=== PATIENT | male | born 1940 | race Caucasian/White ===

== ENCOUNTER 2017-08-03 15:51 | Inpatient (IN) | payer MEDICARE, OTHER ==
[~2017-08-03] VITALS: Ht 182.9 cm; Wt 132.4 kg
[2017-08-03 18:13] VITALS: BP 131/68
[2017-08-03] MEDS: warFARin 5 MG (COUMADIN) TAB PO SCH (19:34)
[2017-08-03] MEDS: ENOXAPARIN 40 MG/0.4 ML (LOVENOX) SYR SC SCH (19:34)
[2017-08-03] MEDS: PANTOPRAZOLE 40 MG (PROTONIX) TAB PO SCH (20:44)
[2017-08-03] MEDS: ATORVASTATIN 40 MG (LIPITOR) TABLET PO SCH (20:44)
[2017-08-03] MEDS: DONEPEZIL 5 MG (ARICEPT) TAB PO SCH (20:44)
[2017-08-04 00:37] LABS: BILIRUBIN,URINE NEGATIVE (NEGATIVE); KETONES,URINE NEGATIVE (NEGATIVE); LEUKOCYTE ESTERASE ,URINE 2+ (NEGATIVE); NITRITE,URINE NEGATIVE (NEGATIVE); PH,URINE 5 (5-9); PROTEIN,URINE NEGATIVE (NEGATIVE); UROBILINOGEN,URINE NORMAL (NORMAL)
[2017-08-04 05:55] VITALS: BP 156/70
[2017-08-04 06:04] LABS: BASOPHILS # (AUTO) 0.1 10^3/uL (0.0-0.1); BASOPHILS % (AUTO) 1 % (0-10); EOSINOPHILS # (AUTO) 0.3 10^3/uL (0.0-0.3); EOSINOPHILS % (AUTO) 4 % (0-10); LYMPHOCYTES # (AUTO) 1.5 X 10^3 (1.0-4.0); LYMPHOCYTES % (AUTO) 21 % (12-44); MEAN CORPUSCULAR HEMOGLOBIN 27 PG (25-34); MEAN CORPUSCULAR HGB CONC 31 G/DL (32-36); MEAN CORPUSCULAR VOLUME 89 FL (80-99); MONOCYTES # (AUTO) 0.7 X 10^3 (0.0-1.0); MONOCYTES % (AUTO) 11 % (0-12); NEUTROPHILS # (AUTO) 4.4 X 10^3 (1.8-7.8); NEUTROPHILS % (AUTO) 63 % (42-75); PLATELET COUNT 265 10^3/uL (130-400); RED CELL DISTRIBUTION WIDTH 15.7 % (10.0-14.5); WHITE BLOOD COUNT 6.9 10^3/uL (4.3-11.0)
[2017-08-04 06:17] LABS: INR 1.2 (0.8-1.4); PROTHROMBIN TIME PATIENT 15.6 SEC (12.2-14.7)
[2017-08-04] MEDS: KCL 10 MEQ TAB (MICRO K) PO SCH (06:22)
[2017-08-04] MEDS: PANTOPRAZOLE 40 MG (PROTONIX) TAB PO SCH ×2 (06:23→21:06)
[2017-08-04] MEDS: FERROUS SULF 325 MG (IRON) TAB PO SCH ×2 (06:23→17:41)
[2017-08-04 06:24] LABS: ALANINE AMINOTRANSFERASE 15 U/L (0-55); ANION GAP 9 MMOL/L (5-14); ASPARTATE AMINO TRANSFERASE 14 U/L (5-34); BLOOD UREA NITROGEN 11 MG/DL (7-18); BUN/CREATININE RATIO 14; CALCIUM 8.8 MG/DL (8.5-10.1); CARBON DIOXIDE 23 MMOL/L (21-32); CHLORIDE 107 MMOL/L (98-107); GFR ESTIMATED > 60; GLUCOSE 109 MG/DL (70-105); POTASSIUM 3.8 MMOL/L (3.6-5.0); SODIUM 139 MMOL/L (135-145); TOTAL PROTEIN 6.2 GM/DL (6.4-8.2)
[2017-08-04 06:32] LABS: ALBUMIN 3.2 GM/DL (3.2-4.5); BILIRUBIN,TOTAL 0.8 MG/DL (0.1-1.0)
--- NOTE | 2017-08-04 07:57 | Consultation ---
History of Present Illness History of Present Illness Patient Consulted On(subhash/time) 08/04/17 07:52 Time Seen by Provider: 07:50 History of Present Illness CVA. Dementia. atrial fibrillation history. Coronary artery disease. Hypertension. Hyperlipidemia. Patient states he had a stroke and lost my mind. 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 Patient states this years 2001. Patient doesn't know what 10-2 equals. Surgeries pacemaker and heart Allergies and Home Medications Allergies Coded Allergies: aspirin (Verified Allergy, Unknown, 08/03/17) ibuprofen (Verified Allergy, Unknown, 08/03/17) lorazepam (Verified Allergy, Unknown, 08/03/17) naproxen (Verified Allergy, Unknown, 08/03/17) propofol (Verified Allergy, Unknown, 08/03/17) Past Duhveyv-Alhlal-Xzoexr Hx Patient Social History Smoking Status: Former Smoker Recent Foreign Travel: No Contact w/Someone Who Travel: No Recent Infectious Disease Expo: No Recent Hopitalizations: Yes Immunizations Up To Date Date of Pneumonia Vaccine: Nov 01, 2008 Date of Influenza Vaccine: Jul 31, 2017 Surgeries History of Surgeries: Yes (Transverse Colectomy-2014; L knee scope; Carpal tunnel surgery) Surgeries: Cardiac, Pacemaker Respiratory History of Respiratory Disorde: Yes Respiratory Disorders: Sleep Apnea Cardiovascular History of Cardiac Disorders: Yes (Pacemaker) Cardiac Disorders: Atrial Fibrillation Neurological History of Neurological Disord: Yes Gastrointestinal History of Gastrointestinal Di: Yes Gastrointestinal Disorders: Polyps, Ulcer Musculoskeletal History of Musculoskeletal Dis: Yes (DJD; Essential tremors) Musculoskeletal Disorders: Arthritis Psychosocial History of Psychiatric Problem: Yes Behavioral Health Disorders: Depression Blood Transfusions History of Blood Disorders: Yes Adverse Reaction to a Blood Tr: No Review of Systems-General Constitutional: weakness EENTM: no symptoms reported Respiratory: no symptoms reported Cardiovascular: other (history of atrial fibrillation) Gastrointestinal: no symptoms reported Genitourinary: no symptoms reported Physical Exam-General Problems Physical Exam Vital Signs Vital Sign - Last 12Hours 08/03/17 08/03/17 18:13 18:54 Temp 100.6 Pulse 65 Resp 16 B/P (MAP) 131/68 Pulse Ox 92 O2 Delivery Room Air Capillary Refill : Less Than 3 Seconds General Appearance: WD/WN, no apparent distress Eyes: Bilateral Eye Normal Inspection HEENT: normal ENT inspection Neck: full range of motion, normal inspection Respiratory: chest non-tender, normal breath sounds, no respiratory distress, no accessory muscle use Cardiovascular: regular rate, rhythm Gastrointestinal: non tender, soft Assessment/Plan Assessment/Plan Admission Diagnosis/Plan CVA. Dementia. Coronary artery Disease. Hyperlipidemia. Hypertension Clinical Quality Measures DVT/VTE Risk/Contraindication: Risk Factor Score Per Nursin RFS Level Per Nursing on Admit: 3=High MAURICE FULLER DO Aug 04, 2017 07:57
--- NOTE | 2017-08-04 08:57 | ST Dysphagia Evaluation ---
Speech Evaluation-General Medical Diagnosis CVA Onset Date: Jul 31, 2017 Therapy Diagnosis Therapy Diagnosis: Mild Oropharyngeal Dysphagia Precautions Precautions: Aspiration Precautions/Isolations: Aspiration, Fall Prevention, Standard Precautions Referral Referring Physician: Dr. Eligio Padilla Reason for Referral: Evaluation/Treatment Clinical Bedside Swallowing Evaluation Medical History Pertinent Medical History: Atrial Fib, Arthritis, HTN Hyperlipidemia Reviewed History: Yes Speech PLF/Current-Dysphagia Prior Level of Function The patient denied prior challenges with swallowing. Per chart review, the patient was recently upgraded from a mechanical soft consistency diet with nectar-thick liquids to a mechanical soft consistency diet with thin liquids ( no straw). The patient denied signs/symptoms of aspiration with his current diet consistency recommendations. Subjective The patient is a 76-year-old male admitted to [facility] following a CVA. The patient greeted the clinician appropriately and was agreeable to participation in the dysphagia evaluation. To note: The patient does demonstrate anterior loss of secretions from the right labial side at rest. Cognitive Status Patient Orientation: Person, Place, Time, Situation Oral Motor Skills Dentition: Natural Current Food Consistancy: Mechanical Soft, Thin Liquids Ability to Follow Directions: Good Oral Expression Ability: Moderate Impairment Voice Voice Phonatory-Based Quality: Normal Voice Pitch: Normal Voice Loudness: Normal Face Facial Symmetry: Asymmetrical (Minimal right facial droop present at rest.) Oral-Facial Assessment Oral-Facial Dentition: Normal Labial Seal Description: Droops Right Smile: Droops Right Puff Cheeks: Reduced Strength (Right.) Lingual Protrusion: Abnormal (Minimal right sided deviation upon protrusion.) Lingual ROM: Normal Lingual Strength: Normal Pharynx Velopharyngeal Move.: Normal Volitional Dry Swallow: Yes Voluntary Cough: Yes Can Clear Throat Volitionally: Yes Productive Cough: Yes Productive Throat Clear: Yes Dysphagia Evaluation Consistencies Presented: Regular, Thin Liquid, Pureed Oral Phase: Oral Residue (Right, inferior buccal cavity (solids).), Right Pocketing - No pharyngeal swallow deficits were noted. - Thin Liquid (teaspoon and cup sip), Puree, Solid: No signs/symptoms of aspiration were displayed with multiple boluses of thin liquid, puree, or solid consistencies. The patient's vocal quality remained clear throughout the evaluation. - Minimal to mild residual material was visualized in the right, inferior buccal cavity following the swallow. The patient was able to clear the residual material with a prompted lingual sweep. Dietary Recommendations: Mechanical Soft Liquid Recommendations: Thin Swallowing Precautions: No Straw, Pocketing, Small Bites and Sips, Sitting 90 Degrees 30 Post Intake, Right Tongue Sweep Dysphagia Evaluation Summary The patient displayed mild oropharyngeal dysphagia characterized by right labial weakness and reduced right labial range of motion. Speech Short Term Goals Short Term Goals Short Term Goals 1. The patient will complete a right lingual sweep with bolus trials of solid consistencies with more than 80% accuracy. Time Frame-STG: Five Days Speech Sewage Screen Operator Goals Care Home Goals 1. The patient will tolerate the least restrictive diet without signs/symptoms of aspiration or laryngeal penetration. Time Frame: One Week Speech-Plan Treatment Plan Speech Therapy Treatment Plan: Continue Plan of Care Continue skilled speech pathology treatment to target swallowing strategies and safety with PO. Frequency: Modified Program (IRF) (Five times per week.) Estimated Hrs Per Day: .5 hour per day Rehab Potential: Fair Safety Risks/Education Teaching Recipient: Patient, Family Teaching Methods: Discussion Response to Teaching: Verbalize Understanding Education Topics Provided: Results, Recommendations, Plan of Care Time Speech Therapy Time In: 08:00 Speech Therapy Time Out: 08:15 Total Billed Time: 15 Billed Treatment Time Lisseth PEPE BUSTOS Aug 04, 2017 08:57
--- NOTE | 2017-08-04 08:59 | ST Cognitive Linguistic Eval ---
Speech Evaluation-General Medical Diagnosis CVA Onset Date: Jul 31, 2017 Therapy Diagnosis Therapy Diagnosis: Moderate Expressive Aphasia Precautions Precautions: Aspiration Precautions/Isolations: Aspiration, Fall Prevention, Standard Precautions Referral Referring Physician: Dr. Eligio Padilla Reason for Referral: Evaluation/Treatment Cognitive, Speech, Language Evaluation Medical History Pertinent Medical History: Atrial Fib, Arthritis, HTN Reviewed History: Yes Speech PLF-Current Status Prior Level of Function The patient denied prior challenges with speech, language, or cognition. Per patient's daughter, the patient did experience an episode of [place]' Palsy several years prior which may have resulted in consistent right sided facial weakness. Subjective The patient is a 76-year-old male admitted to [facility] following a CVA. The patient greeted the clinician appropriately and was agreeable to participation in the speech and language evaluation. Language Eval: Auditory Comprehends Simple Yes/No Ques: Functional Indent/Objects Multiple Quiles: Functional Ident/Pics in Multiple Quiles: Moderate Follows 1-Step Commands: Functional (With additional time for processing; response delay.) Follows Complex Directions: Moderate Follows General Conversations: Mild Language Eval: Verbal Language Completes Spontaneous Greeting: Functional Produces Auto, Serial Info: Functional Imitates Simple Words/Phrases: Moderate (The patient was able to repeat single words, however, was unable to repeat short phrases.) Word Finding: Moderate Requests Basic Needs: Functional States Basic Personal Info: Functional Expresses Complex Ideas: Moderate Language Evaluation: Reading Comprehends Single Nouns: Functional Cognitive Patient Orientation The patient was oriented to the day of the week, only. The patient required moderate verbal prompting from the clinician to identify the accurate month and year. Objective Cognitive Domain Attention: WNL Memory: Moderate Problem Solving: Moderate Executive Functions: Moderate Visuospatial Skills: Moderate (The patient displayed mild to moderate right visual neglect.) Clock Drawing Severity Rating: Moderate Objective Oral Motor/Speech Production The patient displayed mild right labial weakness at rest. The patient remains 100% intelligible in known and unknown contexts. Impression The patient displays moderate expressive aphasia characterized by reduced word- finding, decreased orientation, reduced confrontational naming, and decreased repetition. Communication/Social Cognition Comprehension: 3 Expression: 3 Social Interaction: 5 Problem Solvin Memory: 2 Speech Patient Assess Expression of Ideas/Wants: Frequently (2) Understanding [place] Content: Usually Understands (3) Brief Interview-Mental Status: Yes Repetition of Three Words: Three (3) Temporal Orientation: Year: Missed by more than 5 yrs (0) Temporal Orientation: Month: Accurate within 5 days(2) Temporal Orientation: Day: Correct (1) Recall : Wear to say "Sock": No, could not recall (0) Recall : Color: No, could not recall (0) Recall : Bed: Yes, no cue required (2) Speech Short Term Goals Short Term Goals Short Term Goals 1. The patient will complete structured word-finding exercises with 90% accuracy and mild clinician cueing. 2. The patient will follow simple, two step commands with 80% accuracy and mild clinician cueing. 3. The patient will display 80% accuracy with confrontational naming of pictures with mild clinician cueing. Time Frame-ST Days Speech Rag Collector Goals Rag Collector Goals 1. The patient will improve cognitive linguistic skills for increased function and safety with ADL's. Time Frame: Two Weeks Comprehension: 4 Expression: 4 Social Interaction: 5 Problem Solvin Memory: 3 Speech-Plan Treatment Plan Speech Therapy Treatment Plan: Continue Plan of Care Continue skilled speech pathology to target functional expressive communication. Frequency: Modified Program (IRF) (Five times per week.) Estimated Hrs Per Day: .5 hour per day Rehab Potential: Fair Safety Risks/Education Teaching Recipient: Patient Teaching Methods: Discussion Response to Teaching: Verbalize Understanding Education Topics Provided: Results, Recommendations, Plan of Care Time Speech Therapy Time In: 08:15 Speech Therapy Time Out: 08:30 Total Billed Time: 15 Billed Treatment Time 1DANIELLEGEORGEPEPE MAC Aug 04, 2017 08:59
[2017-08-04] MEDS: amLODIPine 5 MG (NORVASC) TAB PO SCH (09:31)
[2017-08-04] MEDS: FUROSEMIDE 40 MG (LASIX) TAB PO SCH (09:31)
--- NOTE | 2017-08-04 12:01 | Physical Therapy Evaluation ---
PT Evaluation-General Medical Diagnosis Admission Date Aug 03, 2017 at 17:53 Medical Diagnosis: CVA Onset Date: Jul 31, 2017 Therapy Diagnosis Therapy Diagnosis: weakness, mobility impairments Height/Weight Height (Feet): 6 Height (Inches): 0.00 Weight (Pounds): 295 Weight (Ounces): 12.8 Precautions Precautions/Isolations: Fall Prevention, Standard Precautions Referral Physician: Eligio Padilla MD Reason for Referral: Evaluation/Treatment Medical History Pertinent Medical History: Atrial Fib, Arthritis, Dementia, HTN, Smoking Additional Medical History sleep apnea, polyps, ulcer, DJD, essential tremors, depression, CAD, hyperlipidemia. Surgeries: transverse colectomy 2014, L knee scope, carpal tunnel, cardiac, pacemaker Current History Pt was admitted to hospital 07/31 following AMS and fall in the bathtub, had CVA. Reviewed History: Yes Social History Home: Single Level Current Living Status: Other Family Entry Into Home: Stairs With Railing PT Steps Into Home: 2 Pt has been living with family prior to admission. Prior/Core FIM Prior Level of Function Functional [place] Measure 0=Not Assessed/NA 4=Minimal Assistance 1=Total Assistance 5=Supervision or Setup 2=Maximal Assistance 6=Modified [place] 3=Moderate Assistance 7=Complete [place] Bed Mobility: 7 Transfers (B,C,W/C) (FIM): 6 Gait: 6 Locomotion: 6 Wheelchair Mobility: 6 Pt was ambulating in household, shorter distances with no assistive devices. Pt uses scooter or wheelchairs (provided in stores, does not own wheelchair) when out in the community PT Evaluation-Current Subjective Pt was sitting in chair, chair alarm on, prior to treatment, daughter in room. Daughter provided subjective information regarding prior level of function and past medical history. Pt reports no pain. Pt was sitting in chair, chair alarm on, phone, tray, nurse call in reach, all needs met post tx. Pain Numeric Pain Scale: 0-No Pain Location: No Pain Reported Pt/Family Goals To return home with prior level of function Objective Patient Orientation: Person, Place, Situation ROM/Strength ROM Lower Extremities WFL Strength Upper Extremities Joint Cutter Machine 5/5 bilaterally, no difference noted from right to left. Strenght Lower Extremities Left: 5/5 with hip flexion, knee flexion, knee extension, ankle dorsiflexion. Right: hip flexion (5/5) , knee flexion (5/5), knee extension (5/5), ankle dorsiflexion (4/5). Integumentary/Posture Integumentary refer to nursing note Bowel Incontinence: Yes Bladder Incontinence: No Neuromuscular (Tone, Coordination, Reflexes) NT Sensory Vision: Neblect Right Hearing: Functional Hand Dominance: Right Sensation Right Upper Extremit: Intact Sensation Left Upper Extremity: Intact Sensation Right Lower Extremit: Intact Sensation Left Lower Extremity: Intact Transfers Functional [place] Measure 0=Not Assessed/NA 4=Minimal Assistance 1=Total Assistance 5=Supervision or Setup 2=Maximal Assistance 6=Modified [place] 3=Moderate Assistance 7=Complete IndependenceIRFPAI Quality Coding Scale 6 Independent with activity with or without an assistive device 5 Patient requires set up or clean up by helper. Patient completes activity by themselves 4 Supervision or touching assist (CGA). [place] provide cues , steadying assist 3 The helper provides less than half the effort to complete the activity 2 The helper provides more than half the effort to complete the activity 1 Dependent. The helper does all the effort to complete an activity 7 Patient refused to complete or attempt activity 9 The patient did not perform the activity before the current illness or injury 88 Not attempted due to Medical conditions or safety concerns Transfers (B, C, W/C) (FIM): 5 Scootin Rollin Roll Left to Right (QC): 5 Supine to/from Sit: 5 Sit to/from Stand: 5 Sit to Lying (QC): 5 Lying to Sitting/Side of Bed(Q: 5 Sit to Stand (QC): 5 Chair/Wyj-pk-Fomhf Xfer(QC): 5 Pt completes all bed mobility and transfers with supervision. Pt requires verbal cues for hand placement and safety with sit<>stand. Gait Does the Patient Walk?: Yes Mode of Locomotion: Walk Anticipated Mode of Locomotion: Walk Gait (FIM): 2 Distance (FIM): 8=141-36 ft Walk 10 feet (QC): 4 Walk 50 ft with 2 Turns(QC): 4 Walk 150 ft (QC): 88 Walking 10ft/uneven surface-QC: 88 Distance: 100'x6 Gait Level of Assist: 4 Gait Persons Needed: 1 Gait Assistive Device: FWW Comments/Gait Description Pt ambulates 100' with FWW and CGA for safety. Pt has hunched posture. Pt has tendency to push walker out too far in front of him, and keeps walker to the left side of his body with ambulation. Requires verbal cues for safety. Wheelchair Training Does the Pt Use a Wheelchair?: No Stairs Stairs (FIM): 2 #of Steps: 4 Level of Assist: 4 1 Step (curb) (QC): 4 4 Steps (QC): 4 12 Steps (QC): 88 Pt completes 4 steps using 2 handrails and close CGA for safety. Pt requires verbal cues for sequencing and safety. Pt has some difficulty picking right foot up completely off of step with descending stairs. Balance Sitting Static: Normal Sitting Dynamic: Normal Standing Static: Fair Standing Dynamic: Fair Picking up an Object (QC): 88 Treatment Pt completes seated exercises (hip flexion, DF, knee flexion, knee extension) x10 with theraband for resistance. Pt also completes gait training and standing exercises in parallel bars (side steps, mini squats)x8 to increase functional strength and mobility. Assessment/Needs Pt has decreased strength, balance, activity tolerance, transfers, and gait. Pt exhibits right neglect. Pt exhibits decreased safety awareness, requires verbal cues for positioning, directions, and safety. Pt is able to follow directions and responds appropriately, doesn't always track movement with eyes Rehab Potential: Fair PT Short Term Goals Short Term Goals Time Frame: Aug 11, 2017 Transfers (B,C,W/C) (FIM): 6 Gait (FIM): 4 Gait Distance Comment: 200' Gait Level of Assist: 4 Gait Assistive Device: FWW PT Speaker Wirer Goals Speaker Wirer Goals PT Speaker Wirer Goals Time Frame: Aug 25, 2017 Transfers (B,C,W/C) (FIM): 7 Sit to Lying (QC): 6 Lying-Sitting on Side/Bed(QC): 6 Sit to Stand (QC): 6 Rollin Roll Left to Right (QC): 6 Chair/Law-uh-Baieu Xfer(QC): 6 Car Transfer (QC): 4 Gait (FIM): 6 Distance: 250' Walk 10 feet (QC): 6 Walk 10ft-Uneven Surface(QC): 6 Walk 50ft with 2 Turns (QC): 6 Walk 150 ft (QC): 6 Gait Level of Assist: 6 Gait Assistive Device: FWW Stairs (FIM): 5 # of Steps: 12 1 Step (curb) (QC): 4 4 Steps (QC): 4 12 Steps (QC): 4 Stairs Level Of Assist: 5 Picking up an Object (QC): 4 PT Plan Problem List Problem List: Activity Tolerance, Functional Strength, Safety, Balance, Gait, Transfer, Bed Mobility, ROM Treatment/Plan Treatment Plan: Continue Plan of Care Treatment Plan: Bed Mobility, Education, Functional Activity Dave, Functional Strength, Group Therapy, Gait, Safety, Therapeutic Exercise, Transfers Treatment Duration: Aug 25, 2017 Frequency: At least 5 of 7 days/Wk (IRF) Estimated Hrs Per Day: 1.5 hours per day Patient and/or Family Agrees t: Yes Safety Risks/Education Patient Education: Gait Training, Transfer Techniques, Steps, Reviewed Precautions, Correct Positioning, Safety Issues Teaching Recipient: Patient Teaching Methods: Demonstration, Discussion Response to Teaching: Verbalize Understanding, Reinforcement Needed Discharge Recommendations Plan Patient will perform bed mobility and transfer training, balance and endurance training, functional strengthening, stair training, gait training, and education , to improve functional mobility and independence at home. Therapy D/C Recommendations: Home w/ Family Support, Usp (TCU/NH) Equpiment Recommendations-D/C: Front Wheeled Walker Time/GCodes Time In: 1100 Time Out: 1201 Total Billed Treatment Time: 61 Total Billed Treatment 1 visit 16 EVM 30 GT 15 ANA BOWMAN PT Aug 04, 2017 12:01
--- NOTE | 2017-08-04 12:41 | Occupational Therapy Eval ---
OT Evaluation-General/PLF Medical Diagnosis Admission Date Aug 03, 2017 at 17:53 Medical Diagnosis: CVA Onset Date: Jul 31, 2017 Therapy Diagnosis Therapy Diagnosis: impaired self care skills Height/Weight Height (Feet): 6 Height (Inches): 0.00 Weight (Pounds): 295 Weight (Ounces): 12.8 Precautions Precautions/Isolations: Fall Prevention, Standard Precautions Safety Interventions: Bed Exit Alarm, Reorient-PRN Referral Physician: Eligio Padilla MD Medical History Pertinent Medical History: Atrial Fib, Arthritis, Dementia, HTN, Smoking Additional Medical History pacemaker, heart stents x2, GI bleed, hyperlipidemia, colectomy, left carpal tunnel release Reviewed History: Yes Social History Home: Single Level Current Living Status: Other Family Entry Into Home: Stairs With Railing Steps Into Home: 2 Pt lives alone, but has been staying with daughter after recent hospitalization. ADL-Prior Level of Function ADL PLOF Comments Pt has difficulty providing accurate information regarding PLOF. Daughter present and provides history. Daughter states pt has been able to dress and toilet himself, but has been receiving assistance with bathing. Has been recommended to use FWW, but does not have one yet. Daughter states pt is a "furniture walker." Minimal activity level. DME/Equipment: Bath Chair, Grab Bars, Tall Toilet, Tub/Shower Drive Self: Yes OT Current Status Subjective Pt in bed, agrees to therapy. Pt has no c/o pain. Mental Status/Objective Patient Orientation: Person Pt able to state name, , and current city as [place], but not oriented to time. Current Glasses/Contacts: No Hearing Aids: No Dentures/Partials: No Hand Dominance: Right Upper Extremity ROM Grossly WFL Upper Extremity Coordination Fair. Pt has tremors in bilateral UE Upper Extremity Sensation Intact per pt report. Upper Extremity Strength Grossly functional ADL-Treatment ADL-Current Pt supine to sit with supervision. Sit to stand with supervision. Gait to restroom with FWW, cues for safety. Transfer to toilet with CGA using grab bars. Pt would like to shower this morning, doffed clothing while seated on toilet. Pt transferred to walk in shower with CGA. Seated bathing completed with increased time. Upper body bathing completed with SBA. Pt able to wash lower body with SBA. Stood with CGA for balance while washing buttocks and edis area. Don pullover shirt with set up. Pt donned underwear and pants with minimal assistance. Pt was able to doff socks, but required assistance to don socks. Daughter states pt does not usually wear socks, but wears loose shoes that he can slip on. Grooming tasks completed seated at sink. Pt shaved, brushed teeth, and combed hair with SBA. Transfer to chair with CGA and cues for walker safety. Pt has decreased safety awareness and requires occasional cues for safety during functional tasks. Pt sitting in chair with needs met and daughter present , chair alarm in place. Functional [place] Measure 0=Not Assessed/NA 4=Minimal Assistance 1=Total Assistance 5=Supervision or Setup 2=Maximal Assistance 6=Modified [place] 3=Moderate Assistance 7=Complete IndependenceIRFPAI Quality Coding Scale 6 Independent with activity with or without an assistive device 5 Patient requires set up or clean up by helper. Patient completes activity by themselves 4 Supervision or touching assist (CGA). [place] provide cues , steadying assist 3 The helper provides less than half the effort to complete the activity 2 The helper provides more than half the effort to complete the activity 1 Dependent. The helper does all the effort to complete an activity 7 Patient refused to complete or attempt activity 9 The patient did not perform the activity before the current illness or injury 88 Not attempted due to Medical conditions or safety concerns Grooming (FIM): 5 Oral Hygiene (QC): 4 Bathing (FIM): 4 Shower/Bathe Self (QC): 4 Upper Body Dressing (FIM): 5 Upper Body Dressing (QC): 5 Lower Body Dressing (FIM): 4 Lower Body Dressing (QC): 3 On/Off Footwear (QC): 3 Toilet/Commode Transfer (FIM): 4 Toilet Transfer (QC): 4 (CGA) Shower Transfer (FIM): 4 Education OT Patient Education: Rehab process Teaching Recipient: Patient Teaching Methods: Discussion Response to Teaching: Verbalize Understanding, Reinforcement Needed OT Short Term Goals Short Term Goals Time Frame: Aug 11, 2017 Lower Body Dressing(FIM): 5 Toileting(FIM): 5 Toilet/Commode Transfer(FIM): 5 1=Demonstrate adherence to instructed precautions during ADL tasks. 2=Patient will verbalize/demonstrate understanding of assistive devices/ modifications for ADL. 3=Patient will improve strength/tolerance for activity to enable patient to perform ADL's. OT Orchestra Conductor Goals Orchestra Conductor Goals Time Frame: Aug 25, 2017 Eating (FIM): 6 Eating (QC): 6 Groomin Oral Hygiene (QC): 6 Bathing(FIM): 5 Shower/Bathe Self (QC): 5 Upper Body Dressing(FIM): 6 Upper Body Dressing (QC): 6 Lower Body Dressing(FIM): 6 Lower Body Dressing (QC): 6 On/Off Footwear (QC): 6 Toileting(FIM): 6 Toileting Hygiene (QC): 6 Toilet/Commode Transfer(FIM): 6 Toilet/Commode Transfer (QC): 6 Shower Transfer(FIM): 5 Memory(FIM): 3 Additional Goals: 2-Verbalize Understanding, 3-ImproveStrength/Dave 1=Demonstrate adherence to instructed precautions during ADL tasks. 2=Patient will verbalize/demonstrate understanding of assistive devices/ modifications for ADL. 3=Patient will improve strength/tolerance for activity to enable patient to perform ADL's. Goals established to promote increased independence and allow safe discharge plan. OT Education/Plan Problem List/Assessment Assessment: Decreased Activ Tolerance, Decreased Safety Aware, Dependent Transfers, Impaired Self-Care Skills Pt demonstrates decreased ADL functioning, mobility, activity tolerance, and safety awareness. Pt to benefit from skilled OT intervention for ADL training, transfers, strengthening, and home safety education to maximize level of function and allow safe discharge plan. Discharge Recommendations Plan/Recommendations: Continue POC Treatment Plan/Plan of Care Treatment,Training & Education: Yes Patient would benefit from OT for education, treatment and training to promote independence in ADL's, mobility, safety and/or upper extremity function for ADL' s. Plan of Care: ADL Retraining, Functional Mobility, Group Exercise/Act as Ind, UE Funct Exercise/Act, UE Neuromus Re-Ed/Coord Treatment Duration: Aug 25, 2017 Frequency: At least 5 of 7 days/Wk (IRF) Estimated Hrs Per Day: 1.5 hours per day Agreement: Yes Rehab Potential: Good Time/GCodes Start Time: 09:15 Stop Time: 10:40 Billed Treatment Time 1 visit, EVL(15minutes), ADLx5(70minutes) HARDY DYKES OT Aug 04, 2017 12:41
[2017-08-04] MEDS ORDERED: AMLO5TAB2 PO (13:13)
[2017-08-04] MEDS ORDERED: POTA20TA15 PO (13:13)
[2017-08-04] MEDS ORDERED: WARF-48 PO (13:13)
[2017-08-04] MEDS ORDERED: PANT40TA3 PO (13:13)
[2017-08-04] MEDS ORDERED: TRAM50TA2 PO (13:13)
[2017-08-04] MEDS ORDERED: FURO40TA4 PO (13:13)
[2017-08-04] MEDS ORDERED: FERR-74 PO (13:13)
[2017-08-04] MEDS ORDERED: PRAV20TA3 PO (13:13)
[2017-08-04] MEDS ORDERED: CELE-63 PO (13:13)
--- NOTE | 2017-08-04 13:44 | HISTORY AND PHYSICAL ---
DATE OF SERVICE: 08/03/2017 CHIEF COMPLAINT: Difficulty with speech. HISTORY OF PRESENT ILLNESS: The patient is a 76-year-old male who presented to [facility] ED with family with complaints of altered mental status. Daughter states the patient was recently treated for a GI bleed secondary to an ulcer and was doing well until he was found that morning. He was unable to respond to questions and could not speak. The patient started noted incontinence of bowel and bladder. The patient had a CT of the head which was unremarkable. They could not do an MRI of the brain due to the pacemaker status. 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 The patient was followed by PT, OT, speech. The patient was placed on mechanical soft diet with nectar thickened liquids. He has just been advanced to thin liquids with no straw today by speech therapy at outside facility. He is now referred to inpatient rehabilitation here at [facility] for ongoing stroke rehabilitation. He presents to unit with his 2 daughters one of whom lives with him in [place], [place]. Currently he requires assistance for his ADLs and mobility skills. His Coumadin was held while he was undergoing workup,but it has now been resumed and Lovenox subcutaneous has been ordered until INR is more than 2. The patient was felt to have obstructive sleep apnea while being evaluated at [facility] and was recommended to have a sleep study on an outpatient basis. He does not have a CPAP machine. He is currently SBA for transfers and bed mobility He is Min assist for gait with FWW He is min assist for Lower body dressing and SBA for upper body dressing,He is min assist for bathing and oral hygiene,Setup for grooming and eating. PAST MEDICAL HISTORY: Atrial fibrillation, arthritis, colon polyps, DJD, gastric ulcer, hypertension, hyperlipidemia, morbid obesity with BMI of 40, pacemaker. PAST SURGICAL HISTORY: Knee arthroscopy, pacemaker placement, colon surgery in 2015, EGD, carotid stent, colectomy. ALLERGIES: ASPIRIN, IBUPROFEN, LORAZEPAM, NAPROXEN, PROPOFOL. FAMILY HISTORY: Noncontributory. 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 The family reports that he was independent with ambulation and ADLs prior to this. He lives in a one story home, a few steps to enter. He has a shower chair with back, tall toilet, grab bars in the shower. REVIEW OF SYSTEMS: A 10-point review of systems is significant for gait imbalance, difficulty with speech and swallow. MEDICATIONS: Norvasc 5 mg p.o. q. day, furosemide 40 mg p.o. q. day, ferrous sulfate 325 mg p.o. b.i.d., KCl 10 mEq p.o. q. day, Aricept 5 mg p.o. q. bedtime, Protonix 40 mg p.o. b.i.d., Lipitor 40 mg p.o. q. bedtime, Lovenox 20 mg subcu q. day until INR is more than 2, Coumadin 5 mg p.o. q. day, tramadol 50 mg p.o. t.i.d. p.r.n. moderate pain. PHYSICAL EXAMINATION: GENERAL: Significant for an obese male appearing his stated age, appearing alert, difficult to tell orientation due to his speech difficulty. He states it is December 02 and then tries to correct to October for the month. He has just been started on Aricept. VITAL SIGNS: Temperature 100.6, pulse 65, respirations 16, blood pressure 131/68, O2 92% on room air. HEENT: Vision and hearing appear grossly intact. No oral lesions is noted. He has dysphagia as well as aphasia. NECK: Supple without mass. HEART: Regular rhythm. LUNGS: Clear. ABDOMEN: Soft, nontender. Bowel sounds present, obese. EXTREMITIES: No leg edema, no calf tenderness. MUSCULOSKELETAL: He is right-handed and has functional active range of motion in all 4 extremities. NEUROLOGIC: He has dysphagia, aphasia and gait imbalance. He has functional strength both upper limbs as well as mild tremors in hands. It is difficult to determine cognition due to communication deficit.He has mild rt sided neglect.Sensation grossly intact to touch. He has good apprentice embalmer strength, He has 5/5 strength BLES except for RT ankle dorsiflexor 4/ 5 : Reported to have some incontinence. Will check UA. IMPRESSION: 1. Left middle cerebral artery distribution stroke with resulting gait imbalance, aphasia and dysphagia. 2. Morbid obesity. 3. Atrial fibrillation controlled with medication. 4. Status post pacemaker. 5. Low grade fever. Will check UA. 6. Chronic anticoagulation. Check INR and routine admission labs in a.m. 7. Hypertension, controlled with medication. 8. Anemia with recent history of gastric ulcer on replacement. 9. Gastrointestinal prophylaxis on Protonix. PLAN: The patient will have a comprehensive program of inpatient stroke rehabilitation with goal of maximizing level of functional independence prior to discharge home with his daughter. The patient will have PT and OT 90 minutes per day each discipline, 5 days a week for 2 weeks when not being seen by speech therapy for gait, strengthening, conditioning, balance, ADLs, any patient or family caregiver training necessary, any adaptive equipment training necessary. Speech therapy to do cognitive speech and swallow assessment, treat as indicated 3-5 times a week for 30-45 minutes per day with the patient being seen less by PT and OT during those days to make 3 hours total per day. Rehabilitation nurse may assist with bowel, bladder, skin care, medication administration, pain management. resident services supervisor to assist with discharge planning, community reentry. Will check UA. Therapy with cardiac and fall precautions. Consult Dr. Cherry to assist with medical management of this out of town patient. The patient is usually followed by a nurse practitioner in [place], [place]. Check nocturnal oximetry to see if he desaturates during the night, may benefit from pulmonary consult while here. DIET: Mechanical soft with thin liquids. No straw. Heart healthy. CODE STATUS: Full code. Job ID: [id number] DocumentID: [id number] Dictated Date: 08/03/2017 20:05:45 Grounds Person Date: 08/04/2017 11:07:27 Dictated By: NICOLE SANTANA MD MTDD
--- NOTE | 2017-08-04 14:35 | Physical Therapy Daily Note ---
PT Daily Note-Current Subjective Pt was sitting in chair, chair alarm on prior to tx and agreeable to PT. Pt was sitting in chair, tray, phone, nurse call in reach, all needs met post tx, chair alarm on. Pain Numeric Pain Scale: 0-No Pain Location: No Pain Reported Mental Status Patient Orientation: Person, Place, Situation Transfers Functional [place] Measure 0=Not Assessed/NA 4=Minimal Assistance 1=Total Assistance 5=Supervision or Setup 2=Maximal Assistance 6=Modified [place] 3=Moderate Assistance 7=Complete IndependenceIRFPAI Quality Coding Scale 6 Independent with activity with or without an assistive device 5 Patient requires set up or clean up by helper. Patient completes activity by themselves 4 Supervision or touching assist (CGA). [place] provide cues , steadying assist 3 The helper provides less than half the effort to complete the activity 2 The helper provides more than half the effort to complete the activity 1 Dependent. The helper does all the effort to complete an activity 7 Patient refused to complete or attempt activity 9 The patient did not perform the activity before the current illness or injury 88 Not attempted due to Medical conditions or safety concerns Transfers (B, C, W/C) (FIM): 5 Scootin Supine to/from Sit: 5 Sit to/from Stand: 5 Pt completes all bed mobility and transfers with supervision for safety. Pt requires verbal cues for hand placement and safety with sit<>stand. Gait Training Does the Patient Walk?: Yes Gait (FIM): 2 Distance (FIM): 0=768-79 ft Distance: 100'x2 Gait Level of Assist: 4 Gait Persons Needed: 1 Gait Assistive Device: FWW Pt ambulates 100'x2 with CGA for safety. Pt tends to push walker too far in front of him and to the left, is verbally cued to keep walker with him and in front of him. Exercises Supine Ex: Bridging, Ankle pumps, Quad Set, Heel Slides, Short Arc Quads Supine Reps: 10 Seated Therapy Exercises: Long arc quads, Hip flexion Seated Reps: 15 Treatments Pt completes gait training to increase functional mobility and seated/supine exercises to increase functional strengthening and endurance. Assessment Current Status: Good Progress Pt becomes short of breath with exercises, pt has low activity tolerance and endurance. Pt is unable to get to full knee extension in supine, lacking approximately 20 degrees. Pt has decreased safety awareness. PT Short Term Goals Short Term Goals Time Frame: Aug 11, 2017 Gait (FIM): 4 Gait Distance Comment: 200' Gait Level of Assist: 4 Gait Assistive Device: FWW PT Half-Way Goals Half-Way Goals PT Half-Way Goals Time Frame: Aug 25, 2017 Transfers (B,C,W/C) (FIM): 7 Sit to Lying (QC): 6 Lying-Sitting on Side/Bed(QC): 6 Sit to Stand (QC): 6 Rollin Roll Left to Right (QC): 6 Chair/Aaw-pn-Krmam Xfer(QC): 6 Car Transfer (QC): 4 Gait (FIM): 6 Distance: 250' Walk 10 feet (QC): 6 Walk 10ft-Uneven Surface(QC): 6 Walk 50ft with 2 Turns (QC): 6 Walk 150 ft (QC): 6 Gait Level of Assist: 6 Gait Assistive Device: FWW Stairs (FIM): 5 # of Steps: 12 1 Step (curb) (QC): 4 4 Steps (QC): 4 12 Steps (QC): 4 Stairs Level Of Assist: 5 Picking up an Object (QC): 4 PT Plan Problem List Problem List: Activity Tolerance, Functional Strength, Safety, Balance, Gait, Transfer, Bed Mobility, ROM Treatment/Plan Treatment Plan: Continue Plan of Care Treatment Plan: Bed Mobility, Education, Functional Activity Dave, Functional Strength, Group Therapy, Gait, Safety, Therapeutic Exercise, Transfers Treatment Duration: Aug 25, 2017 Frequency: At least 5 of 7 days/Wk (IRF) Estimated Hrs Per Day: 1.5 hours per day Patient and/or Family Agrees t: Yes Safety Risks/Education Patient Education: Gait Training, Transfer Techniques, Reviewed Precautions, Correct Positioning, Safety Issues Teaching Recipient: Patient Teaching Methods: Demonstration, Discussion Response to Teaching: Verbalize Understanding, Reinforcement Needed Time/GCodes Time In: 1401 Time Out: 1430 Total Billed Treatment Time: 29 Total Billed Treatment 1 visit GT 15 EX 14 ANA FUNEZ PT Aug 04, 2017 14:35
--- NOTE | 2017-08-04 14:47 | PM&R Post Admission Assessment ---
Post Admission Physician Asses The preadmission screen agrees with the post admission assessment that the patient is a good candidate for inpatient rehabilitation. The patient will have a comprehensive program of inpatient rehabilitation with a goal of maximizing level of functional independence prior to discharge home with daughter and HHC. The patient will have PT/OT ninety minutes per day when not being seen by ST, each discipline, five days a week for gait, strengthening, conditioning, balance, ADLs, any patient/family/caregiver training as necessary. Speech therapy to do cognitive sppech and swallow assessment and treat 5 days a week for 30-45 minutes per day for 2 weeks. Rehabilitation nursing to assist with bowel, bladder, skin, wound care, medication administration, pain management. Import Export Manager to assist with discharge planning, community reentry. Coumadin and Lovenox until INR therapeutic for dvt prophylaxis,Monitor for nocturnal desaturation due to probable CHONG. He appears to be well motivated to participate in three hours of therapy a day. He should be able to tolerate three hours of therapy a day from a medical standpoint. He should benefit from the three hours of therapy a day. He has a reasonable discharge plan, reasonable discharge rehabilitation goals and a supportive family. He has various comorbidities that need to be closely monitored with medications and treatments adjusted on a daily basis as needed. These include: Chronic A FIB Morbid obesity s/p pacemaker Probable CHONG HTN Anemia with recent hx of gastric ulcer Barriers to discharge for this patient who had been independent prior to this are for him to be modified independent to supervision for ADLs and mobility skills prior to discharge home with daughter and HHC, so as to lessen the burden of the caregivers. Risks for this patient include: 1. Fall 2. Fracture 3. DVT 4. Pulmonary embolism 5. Wound infection 6. Skin breakdown 7. Contractures 8. Poorly controlled pain 9. Urinary retention 10. UTI 11. Respiratory infection 12. Aspiration 13. Poorly controlled HTN 14. Recurrent stroke Estimated Length of Stay: 14days Prognosis: Rehab prognosis appears good for goal of discharge home with daughter and HHC modified independent to supervision for ADLs and mobility skills. NICOLE SANTANA MD Aug 04, 2017 14:47
--- NOTE | 2017-08-04 14:55 | PM & R (SOAP) Progress Note ---
Subjective Time Seen by Provider: 09:59 Subjective/Events-last exam Patient was seen in his room this AM Adjusting well to unit Appreciate labs and DR chandra note INR subtherapeutic Lovenox continued Patient now afebrile and U/A negative CBC and Chem Lab noted.Patient min assist for ambulation with WW. Review of Systems HEENT: Other (difficulty with speech and swallow) Objective Exam Last Set of Vital Signs Vital Signs Date Time Temp Pulse Resp B/P (MAP) Pulse Ox O2 Delivery O2 Flow Rate FiO2 08/04/17 05:55 98.5 71 20 156/70 95 Room Air Capillary Refill : Less Than 3 Seconds I&O Intake and Output 08/05/17 00:00 Intake Total 200 ml Balance 200 ml Intake Oral 200 ml # Voids 4 General: Alert, Cooperative, No Acute Distress HEENT: Atraumatic, PERRLA, EOMI, Mucous Memb Moist/[place], Other (aphasia and dysphagia) Neck: Supple, No JVD Lungs: Clear to Auscultation Heart: Regular Rate Abdomen: Normal Bowel Sounds, Soft, No Tenderness Extremities: No Edema Neuro: Other (as per above as well as mild rt sided neglect and mildly weak rt ankle dorsiflexors) Results Lab Laboratory Tests 08/04/17 00:15: Urine Color YELLOW, Urine Clarity CLEAR, Urine pH 5, Urine Specific [place] 1.025H, Urine Protein NEGATIVE, Urine Glucose (UA) NEGATIVE, Urine Ketones NEGATIVE, Urine Nitrite NEGATIVE, Urine Bilirubin NEGATIVE, Urine Urobilinogen NORMAL, Urine Leukocyte Esterase 2+H, Urine RBC (Auto) NEGATIVE, Urine RBC NONE , Urine WBC 2-5, Urine Squamous Epithelial Cells 2-5, Urine Crystals NONE, Urine Bacteria TRACE, Urine Casts NONE, Urine Mucus SMALLH, Urine Culture Indicated NO 08/04/17 06:00: White Blood Count 6.9, Red Blood Count 3.60L, Hemoglobin 9.8L, Hematocrit 32L, Mean Corpuscular Volume 89, Mean Corpuscular Hemoglobin 27, Mean Corpuscular Hemoglobin Concent 31L, Red Cell Distribution Width 15.7H, Platelet Count 265, Mean Platelet Volume 9.0, Neutrophils (%) (Auto) 63, Lymphocytes (%) (Auto) 21, Monocytes (%) (Auto) 11, Eosinophils (%) (Auto) 4, Basophils (%) (Auto) 1, Neutrophils # (Auto) 4.4, Lymphocytes # (Auto) 1.5, Monocytes # (Auto) 0.7, Eosinophils # (Auto) 0.3, Basophils # (Auto) 0.1, Prothrombin Time 15.6H, INR Comment 1.2, Sodium Level 139, Potassium Level 3.8, Chloride Level 107, Carbon Dioxide Level 23, Anion Gap 9, Blood Urea Nitrogen 11, Creatinine 0.80, Estimat Glomerular Filtration Rate > 60, BUN/Creatinine Ratio 14, Glucose Level 109H, Calcium Level 8.8, Total Bilirubin 0.8, Aspartate Amino Transf (AST/SGOT) 14, Alanine Aminotransferase (ALT/SGPT) 15, Alkaline Phosphatase 70, Total Protein 6.2L, Albumin 3.2 Assessment/Plan Assessment Left MCA distribution CVA with Gait imbalance and dysphagia and aphasia Morbid obesity A Fib Controlled with meds Chronic anticoagulation Gastric ulcer s/p treatment on PPI Mild anemia due to above S/P pacemaker Probable CHONG Plan Continue PT/OT/ST Team Conference hedl today-See report for full functional update and POC Monitor INR and adjust Coumadin as needed Continue with Lovenox SUB CUT until INR>2 NICOLE SANTANA MD Aug 04, 2017 14:55
[2017-08-04 15:30] VITALS: BP_SYST 117; BP_SYST 151; BP_DIAS 67; BP_DIAS 73
[2017-08-04] MEDS: warFARin 5 MG (COUMADIN) TAB PO SCH (17:41)
[2017-08-04] MEDS: ENOXAPARIN 40 MG/0.4 ML (LOVENOX) SYR SC SCH (17:42)
[2017-08-04] MEDS: DONEPEZIL 5 MG (ARICEPT) TAB PO SCH (21:06)
[2017-08-04] MEDS: ATORVASTATIN 40 MG (LIPITOR) TABLET PO SCH (21:06)
[2017-08-05 05:57] LABS: INR 1.2 (0.8-1.4); PROTHROMBIN TIME PATIENT 14.8 SEC (12.2-14.7)
[2017-08-05] MEDS: KCL 10 MEQ TAB (MICRO K) PO SCH (06:33)
[2017-08-05] MEDS: PANTOPRAZOLE 40 MG (PROTONIX) TAB PO SCH ×2 (06:33→20:20)
[2017-08-05] MEDS: FERROUS SULF 325 MG (IRON) TAB PO SCH ×2 (06:33→17:51)
--- NOTE | 2017-08-05 07:25 | Occupational Ther Daily Note ---
OT Current Status-Daily Note Subjective Pt sitting in chair. No c/o pain. Agrees to therapy. Mental Status/Objective Patient Orientation: Person, Place, Time, Situation Functional [place] Measure 0=Not Assessed/NA 4=Minimal Assistance 1=Total Assistance 5=Supervision or Setup 2=Maximal Assistance 6=Modified [place] 3=Moderate Assistance 7=Complete [place] ADL-Treatment Functional [place] Measure 0=Not Assessed/NA 4=Minimal Assistance 1=Total Assistance 5=Supervision or Setup 2=Maximal Assistance 6=Modified [place] 3=Moderate Assistance 7=Complete IndependenceIRFPAI Quality Coding Scale 6 Independent with activity with or without an assistive device 5 Patient requires set up or clean up by helper. Patient completes activity by themselves 4 Supervision or touching assist (CGA). [place] provide cues , steadying assist 3 The helper provides less than half the effort to complete the activity 2 The helper provides more than half the effort to complete the activity 1 Dependent. The helper does all the effort to complete an activity 7 Patient refused to complete or attempt activity 9 The patient did not perform the activity before the current illness or injury 88 Not attempted due to Medical conditions or safety concerns Eating (FIM): 5 (Pt requires set up for eating. Pt is able to manipulate regular utensils to cut food and feed self.) Eating (QC): 5 Grooming (FIM): 6 (Pt able to complete grooming while seated at sink. ) Oral Hygiene (QC): 6 Toileting (FIM): 4 (CGA while standing to urinate using grab bars for balance. ) Toileting Hygiene (QC): 4 Toilet/Commode Transfer (FIM): 4 (CGA to transfer to toilet using FWW and grab bars. ) Other Treatment Pt ambulated to therapy gym using FWW with CGA. Pt completed arm bike duration 8 minutes at 25 soria resistance to increase strength and activity tolerance for daily functional tasks. Pt tolerates well, requiring no rest breaks. Pt then ambulates back to room using FWW with CGA to eat breakfast. Pt then completed toileting and grooming. After therapy, pt sitting in recliner with phone and call light in reach and safety measures in place. All needs met. Education OT Patient Education: Purpose of tx/functional activities, Rehab process Teaching Recipient: Patient Teaching Methods: Discussion Response to Teaching: Verbalize Understanding OT Short Term Goals Short Term Goals Time Frame: Aug 11, 2017 Lower Body Dressing(FIM): 5 Toileting(FIM): 5 Toilet/Commode Transfer(FIM): 5 1=Demonstrate adherence to instructed precautions during ADL tasks. 2=Patient will verbalize/demonstrate understanding of assistive devices/ modifications for ADL. 3=Patient will improve strength/tolerance for activity to enable patient to perform ADL's. OT Jail Goals [employer] [facility] Goals Time Frame: Aug 25, 2017 Eating (FIM): 6 Eating (QC): 6 Groomin Oral Hygiene (QC): 6 Bathing(FIM): 5 Shower/Bathe Self (QC): 5 Upper Body Dressing(FIM): 6 Upper Body Dressing (QC): 6 Lower Body Dressing(FIM): 6 Lower Body Dressing (QC): 6 On/Off Footwear (QC): 6 Toileting(FIM): 6 Toileting Hygiene (QC): 6 Toilet/Commode Transfer(FIM): 6 Toilet/Commode Transfer (QC): 6 Shower Transfer(FIM): 5 Memory(FIM): 3 Additional Goals: 2-Verbalize Understanding, 3-ImproveStrength/Dave 1=Demonstrate adherence to instructed precautions during ADL tasks. 2=Patient will verbalize/demonstrate understanding of assistive devices/ modifications for ADL. 3=Patient will improve strength/tolerance for activity to enable patient to perform ADL's. OT Education/Plan Problem List/Assessment Pt demonstrates decreased ADL functioning, mobility, activity tolerance, and safety awareness. Pt to benefit from skilled OT intervention for ADL training, transfers, strengthening, and home safety education to maximize level of function and allow safe discharge plan. Discharge Recommendations Plan/Recommendations: Continue POC Treatment Plan/Plan of Care Patient would benefit from OT for education, treatment and training to promote independence in ADL's, mobility, safety and/or upper extremity function for ADL' s. Plan of Care: ADL Retraining, Functional Mobility, Group Exercise/Act as Ind, UE Funct Exercise/Act, UE Neuromus Re-Ed/Coord Treatment Duration: Aug 25, 2017 Frequency: At least 5 of 7 days/Wk (IRF) Estimated Hrs Per Day: 1.5 hours per day Agreement: Yes Rehab Potential: Fair Time/GCodes Start Time: 07:00 Stop Time: 08:00 Total Time Billed (hr/min): 60 Billed Treatment Time 1 visit, ADL 3 (45 minutes) EX 1 (15 minutes) AUGUST GARCIA Aug 05, 2017 07:25
[2017-08-05] MEDS: warFARin 5 MG (COUMADIN) TAB PO SCH ×2 (07:59→18:08)
--- NOTE | 2017-08-05 08:02 | Progress Note (SOAP) ---
Subjective Time Seen by Provider: 07:55 Subjective/Events-last exam CVA. Dementia. History of atrial fibrillation. Coronary artery disease. Hypertension. Hyperlipidemia. Pro time INR 1.2. Patient seems happy today Objective Exam Vital Signs Date Time Temp Pulse Resp B/P (MAP) Pulse Ox O2 Delivery O2 Flow Rate FiO2 08/04/17 15:30 98.6 62 20 117/67 95 Room Air Capillary Refill : Less Than 3 Seconds General Appearance: No Apparent Distress, WD/WN HEENT: Normal ENT Inspection Neck: Full Range of Motion, Normal Inspection Respiratory: Normal Breath Sounds, No Accessory Muscle Use, No Respiratory Distress Cardiovascular: Regular Rate, Rhythm Gastrointestinal: non tender, soft Results Lab Laboratory Tests 08/05/17 05:20: Prothrombin Time 14.8H, INR Comment 1.2 Assessment/Plan Assessment/Plan Assess & Plan/Chief Complaint CVA. Dementia. Coronary artery Disease. Hyperlipidemia. Hypertension. . 08/05/17. CVA. Dementia. Coronary artery. Disease . Hypertension. Hyperlipidemia. Patient appears happy today Clinical Quality Measures DVT/VTE Risk/Contraindication: Risk Factor Score Per Nursin RFS Level Per Nursing on Admit: 3=High MAURICE FULLER DO Aug 05, 2017 08:02
[2017-08-05] MEDS: FUROSEMIDE 40 MG (LASIX) TAB PO SCH (09:09)
[2017-08-05] MEDS: amLODIPine 5 MG (NORVASC) TAB PO SCH (09:10)
--- NOTE | 2017-08-05 09:57 | Physical Therapy Daily Note ---
PT Daily Note-Current Subjective Pt was sitting in chair, chair alarm on prior to tx and agreeable to PT. Pt reports no pain. Pt was sitting in chair, chair alarm on, with nurse call, phone , tray, all needs met post tx. Pain Numeric Pain Scale: 0-No Pain Location: No Pain Reported Mental Status Patient Orientation: Person, Place, Situation Transfers Functional [place] Measure 0=Not Assessed/NA 4=Minimal Assistance 1=Total Assistance 5=Supervision or Setup 2=Maximal Assistance 6=Modified [place] 3=Moderate Assistance 7=Complete IndependenceIRFPAI Quality Coding Scale 6 Independent with activity with or without an assistive device 5 Patient requires set up or clean up by helper. Patient completes activity by themselves 4 Supervision or touching assist (CGA). [place] provide cues , steadying assist 3 The helper provides less than half the effort to complete the activity 2 The helper provides more than half the effort to complete the activity 1 Dependent. The helper does all the effort to complete an activity 7 Patient refused to complete or attempt activity 9 The patient did not perform the activity before the current illness or injury 88 Not attempted due to Medical conditions or safety concerns Transfers (B, C, W/C) (FIM): 5 Sit to/from Stand: 5 Pt completes sit<>stand with supervision for safety. Gait Training Does the Patient Walk?: Yes Gait (FIM): 4 Distance (FIM): 3=150 ft Distance: 75'x2, 150'x2 Gait Level of Assist: 4 Gait Persons Needed: 1 Gait Assistive Device: FWW Pt ambulates with FWW and CGA for safety. Pt tends to push walker far out ahead , has hunched posture and is verbally cued to stand up tall. Pt requires verbal cues for walker placement and safety. Attempted to use a quad cane but his tremors were too bad. Stair Training Stair Training: Handrails/: 2 handrails Stairs (FIM): 2 #of Steps: 4 Stairs: Pattern: Step to Level of Assist: 4 Pt completes 4 steps and 2 handrails with CGA for safety. Exercises Standing: Mini squats, Side steps Standing Reps: 15 Treatments Pt completes gait training that included weaving through objects, walking on uneven terrain, and stepping over objects to increase functional mobility, Pt also completed standing exercises to increase functional LE strength. Assessment Current Status: Fair Progress Pt ambulation is improving. Pt has decreased safety awareness, discussed rationale for waiting for nurse when he needs to get up or walk to restroom. PT Short Term Goals Short Term Goals Time Frame: Aug 11, 2017 Gait (FIM): 4 Gait Distance Comment: 200' Gait Level of Assist: 4 Gait Assistive Device: FWW PT Group Home Goals Group Home Goals PT Group Home Goals Time Frame: Aug 25, 2017 Transfers (B,C,W/C) (FIM): 7 Sit to Lying (QC): 6 Lying-Sitting on Side/Bed(QC): 6 Sit to Stand (QC): 6 Rollin Roll Left to Right (QC): 6 Chair/Jie-sa-Gporq Xfer(QC): 6 Car Transfer (QC): 4 Gait (FIM): 6 Distance: 250' Walk 10 feet (QC): 6 Walk 10ft-Uneven Surface(QC): 6 Walk 50ft with 2 Turns (QC): 6 Walk 150 ft (QC): 6 Gait Level of Assist: 6 Gait Assistive Device: FWW Stairs (FIM): 5 # of Steps: 12 1 Step (curb) (QC): 4 4 Steps (QC): 4 12 Steps (QC): 4 Stairs Level Of Assist: 5 Picking up an Object (QC): 4 PT Plan Problem List Problem List: Activity Tolerance, Functional Strength, Safety, Balance, Gait, Transfer, Bed Mobility, ROM Treatment/Plan Treatment Plan: Continue Plan of Care Treatment Plan: Bed Mobility, Education, Functional Activity Dave, Functional Strength, Group Therapy, Gait, Safety, Therapeutic Exercise, Transfers Treatment Duration: Aug 25, 2017 Frequency: At least 5 of 7 days/Wk (IRF) Estimated Hrs Per Day: 1.5 hours per day Patient and/or Family Agrees t: Yes Safety Risks/Education Patient Education: Gait Training, Transfer Techniques, Steps, Reviewed Precautions, Correct Positioning, Disease Process, Safety Issues Teaching Recipient: Patient Teaching Methods: Demonstration, Discussion Response to Teaching: Verbalize Understanding, Reinforcement Needed Time/GCodes Time In: 900 Time Out: 958 Total Billed Treatment Time: 58 Total Billed Treatment 1 visit 45 GT 13 EX ANA FUNEZ PT Aug 05, 2017 09:57
--- NOTE | 2017-08-05 10:14 | PM & R (SOAP) Progress Note ---
Subjective Time Seen by Provider: 09:40 Subjective/Events-last exam Patient was seen in his room this AM Patient Min assist for transfers Appreciate Therapy and DR Biswas notes and orders INR noted1.2 Coumadin dose increased Lovenox continues. Review of Systems Neurological: Weakness, Change in speech Objective Exam Last Set of Vital Signs Vital Signs Date Time Temp Pulse Resp B/P (MAP) Pulse Ox O2 Delivery O2 Flow Rate FiO2 08/05/17 08:21 99.0 08/04/17 15:30 62 20 117/67 95 Room Air Capillary Refill : Less Than 3 Seconds I&O Intake and Output 08/06/17 00:00 Intake Total 550 ml Balance 550 ml Intake Oral 550 ml # Voids 4 General: Alert, Cooperative, No Acute Distress HEENT: Atraumatic, PERRLA, EOMI, Mucous Memb Moist/[place], Other (aphasia and dysphagia) Neck: Supple, No JVD Lungs: Clear to Auscultation Heart: Regular Rate Abdomen: Normal Bowel Sounds, Soft, No Tenderness Extremities: No Edema Neuro: Other (as per above as well as mild rt sided neglect and mildly weak rt ankle dorsiflexors) Results Lab Laboratory Tests 08/04/17 00:15: Urine Color YELLOW, Urine Clarity CLEAR, Urine pH 5, Urine Specific [place] 1.025H, Urine Protein NEGATIVE, Urine Glucose (UA) NEGATIVE, Urine Ketones NEGATIVE, Urine Nitrite NEGATIVE, Urine Bilirubin NEGATIVE, Urine Urobilinogen NORMAL, Urine Leukocyte Esterase 2+H, Urine RBC (Auto) NEGATIVE, Urine RBC NONE , Urine WBC 2-5, Urine Squamous Epithelial Cells 2-5, Urine Crystals NONE, Urine Bacteria TRACE, Urine Casts NONE, Urine Mucus SMALLH, Urine Culture Indicated NO 08/04/17 06:00: White Blood Count 6.9, Red Blood Count 3.60L, Hemoglobin 9.8L, Hematocrit 32L, Mean Corpuscular Volume 89, Mean Corpuscular Hemoglobin 27, Mean Corpuscular Hemoglobin Concent 31L, Red Cell Distribution Width 15.7H, Platelet Count 265, Mean Platelet Volume 9.0, Neutrophils (%) (Auto) 63, Lymphocytes (%) (Auto) 21, Monocytes (%) (Auto) 11, Eosinophils (%) (Auto) 4, Basophils (%) (Auto) 1, Neutrophils # (Auto) 4.4, Lymphocytes # (Auto) 1.5, Monocytes # (Auto) 0.7, Eosinophils # (Auto) 0.3, Basophils # (Auto) 0.1, Prothrombin Time 15.6H, INR Comment 1.2, Sodium Level 139, Potassium Level 3.8, Chloride Level 107, Carbon Dioxide Level 23, Anion Gap 9, Blood Urea Nitrogen 11, Creatinine 0.80, Estimat Glomerular Filtration Rate > 60, BUN/Creatinine Ratio 14, Glucose Level 109H, Calcium Level 8.8, Total Bilirubin 0.8, Aspartate Amino Transf (AST/SGOT) 14, Alanine Aminotransferase (ALT/SGPT) 15, Alkaline Phosphatase 70, Total Protein 6.2L, Albumin 3.2 08/05/17 05:20: Prothrombin Time 14.8H, INR Comment 1.2 Assessment/Plan Assessment Left MCA distribution CVA with Gait imbalance and dysphagia and expressive aphasia Morbid obesity A Fib Controlled with meds Chronic anticoagulation with subtherapeutic INR Coumadin dose increased Gastric ulcer s/p treatment on PPI Mild anemia due to above S/P pacemaker Probable CHONG Plan Continue PT/OT/ST Team Conference hedmar yesterday-See report for full functional update and POC Monitor INR and adjust Coumadin as needed Continue with Lovenox SUB CUT until INR>2 F/U with NICOLE Marcos MD Aug 05, 2017 10:14
--- NOTE | 2017-08-05 10:20 | Individualized Plan of Care ---
Individualized Plan of Care Rehab Nursing IPOC Order Admission Date Aug 03, 2017 at 17:53 Current Orders Orders Follow-Up Appointment (08/03/17 16:04) Admission-Acute Rehab Unit (08/03/17 16:56) Vital Signs: Routine 08,16,00 (08/03/17 16:56) Molder Machine-Inpt Rehab (08/03/17 16:56) Rehab Nursing Orders-Ipoc (08/03/17 16:56) Physical Therapy Rehab Orders (08/03/17 16:56) Occupational Therapy Rehab Ord (08/03/17 16:56) Speech Therapy Rehab Orders (08/03/17 16:56) Turn And Reposition Q2HR (08/03/17 16:56) Intake & Output 06,14,22 (08/03/17 16:56) Precautions (Aru) (08/03/17 16:56) Weekly Weight (Lbs) WEEK (08/03/17 16:56) Consult Physician (08/03/17 17:01) Cbc With Automated Diff (08/04/17 06:00) Comprehensive Metabolic Panel (08/04/17 06:00) Protime With Inr (08/04/17 06:00) Donepezil Tablet (Aricept Tablet) (08/03/17 21:00) Enoxaparin Injection (Lovenox Injection) (08/03/17 18:00) Warfarin Tablet (Coumadin Tablet) (08/03/17 18:00) Tramadol Tablet (Ultram Tablet) (08/03/17 17:15) Amlodipine Tablet (Norvasc Tablet) (08/04/17 09:00) Ferrous Sulfate Tablet (Feosol Tablet) (08/04/17 07:00) Furosemide Tablet (Lasix Tablet) (08/04/17 09:00) Pantoprazole Tablet (Protonix Tablet) (08/03/17 21:00) Potassium Chloride (Tablet) (Klor Con Ta (08/04/17 07:00) Atorvastatin Tablet (Lipitor) (08/03/17 21:00) Pharmacy Communication (Pharmacy Communi (08/03/17 17:15) Request For Dysphagia Services (08/03/17 18:19) Ambulate TID (08/03/17 18:23) Sequential Compression Device 08,20 (08/03/17 18:23) Dvt/Vte Risk - Notifiy Physici (08/03/17 18:23) Heart Healthy (08/03/17 Dinner) Nursing Communication (Patient (08/03/17 18:28) Urinalysis (08/04/17 00:33) Protime With Inr (08/05/17 06:00) Ekg Tracing (08/04/17 07:53) Protime With Inr (08/06/17 06:00) Patient Visit (08/04/17 ) Speech Sound Lang Comp (08/04/17 ) Patient Visit (08/04/17 ) Dysphagia Evaluation Std (08/04/17 ) Patient Visit (08/04/17 ) Gait Training, Ea 15 Min (08/04/17 ) Exercise Therap, Ea 15 Min (08/04/17 ) Pt Eval Moderate Complexity (08/04/17 ) Warfarin Tablet (Coumadin Tablet) (08/05/17 18:00) Warfarin Tablet (Coumadin Tablet) (08/05/17 18:00) Rehab Nursing Orders: Diseage Management, Edu in Press Rel Techn, Hydration Management, Nutrition Management, Pain Management Other Nursing Orders: monitor for any constipation and urinary retention Intensity of Therapy to be met Patient to be seen: Min.3h per day/5 of 7d PT IPOC Problem List: Activity Tolerance, Functional Strength, Safety, Balance, Gait, Transfer, Bed Mobility, ROM Treatment Plan: Continue Plan of Care Bed Mobility, Education, Functional Activity Dave, Functional Strength, Group Therapy, Gait, Safety, Therapeutic Exercise, Transfers Treatment Duration: Aug 25, 2017 Frequency: At least 5 of 7 days/Wk (IRF) Estimated Hrs Per Day: 1.5 hours per day OT IPOC Problems: Decreased Activ Tolerance, Decreased Safety Aware, Decreased UE Strength, Dependent Transfers, Impaired I ADL's, Impaired Self-Care Skills OT Treatment, Training and Edu: Yes OT Problems Pt demonstrates decreased ADL functioning, mobility, activity tolerance, and safety awareness. Pt to benefit from skilled OT intervention for ADL training, transfers, strengthening, and home safety education to maximize level of function and allow safe discharge plan. Plan of Care: ADL Retraining, Functional Mobility, Group Exercise/Act as Ind, UE Funct Exercise/Act, UE Neuromus Re-Ed/Coord Treatment Duration: Aug 25, 2017 Frequency: At least 5 of 7 days/Wk (IRF) Estimated Hrs Per Day: 1.5 hours per day [facility] Speech Therapy Treatment Plan: Continue Plan of Care Treatment Duration: Aug 25, 2017 Frequency: Modified Program (IRF) (Five times per week.) Estimated Hrs Per Day: .5 hour per day Molder Machine/Case Mgmt Molder Machine/Case Managemen: Discharge Planning, Patient/Family Counseling Physician IP Medical Issues being managed closely and that require the 24 hour availability of a physician:Chronic A FIb Anticoagulation wit Coumadin s/p pacemaker Anemia with recent hx of gastric ulcer on replacement and PPI Probable CHONG Morbid obesity Medical Issues: DVT Prophylaxis, Falls Precautions, Fluid/Electrolyte/ Nutrition Balance, Infection Protection, Swallowing Precautions, Other (List) ( as per above) Brief Synthesis of Preadmission Screen, Post-Admission Evaluation, and Therapy Evaluations: 76 yo male who had been Independent and living with daughter who sustained a stroke with resulting gait imbalance and Dysphagia and expressive aphasia Referred to IR[facility] for stroke rehab Patient has had recent Gastric ulcer associated with Anemia and patient is on IRON replacement as well as PPI.Coumadin recently held due to gastric ulcer but now resumed Lovenox to continue until INR>2.0.Has a supportive family.Patient to have outpatient f/u for presumed CHONG Medical Prognosis: good Anticipated Length of Stay: 08-25-17 Rehab Goals Modified Independent for ADLS and mobility skills with improved Swallow and communication skills Anticipated discharge destinat: Home with daughter and [facility] NICOLE SANTANA MD Aug 05, 2017 10:20
--- NOTE | 2017-08-05 11:04 | Speech Therapy Daily Note ---
Speech Daily Progress Note Subjective Date Seen by Provider: Aug 05, 2017 Time Seen by Provider: 08:30 The patient was seated upright in recliner upon entrance. The patient greeted the clinician appropriately and was agreeable to participation in the speech and language session. The patient reported fatigue and a lack of sleep the night prior. The patient stated he is unsure why he is not sleeping well, however, "wants to give it another night" before we discuss any sleeping aids. Objective Orientation: The patient is accurately oriented to month, day of week, and the vice president network. The patient continues to demonstrate errors with the year, stating the year is "1998." With maximum cueing, the patient is able to identify the accurate year at the close of the session. Confrontational Naming (images): The patient displayed 93% accuracy with confrontational naming of images. The patient demonstrated slightly reduced accuracy (81%) with providing the function of the images ("a brush is for brushing our hair"). Word-Finding: The patient was provided a specific category and asked to name an item that "fit into" the category and was initiated with a specific letter. The patient displayed reduced/poor accuracy with this task, requiring maximum clinician cueing and less than 50% accuracy. Assessment Assessment Current Status: Fair Progress Treatment Plan Continue Plan of Care Communication Comprehension: 4 Expression: 3 Social Cognition Social Interaction: 4 Problem Solvin Memory: 4 Speech Short Term Goals Short Term Goals Short Term Goals 1. The patient will complete structured word-finding exercises with 90% accuracy and mild clinician cueing. 2. The patient will follow simple, two step commands with 80% accuracy and mild clinician cueing. 3. The patient will display 80% accuracy with confrontational naming of pictures with mild clinician cueing. Time Frame-ST Days Speech Prison Goals Eng[employer] Goals 1. The patient will improve cognitive linguistic skills for increased function and safety with ADL's. Time Frame: Two Weeks Memory: 3 Speech-Plan Treatment Plan Speech Therapy Treatment Plan: Continue Plan of Care Continue skilled speech pathology to target functional expressive communication. Treatment Duration: Aug 25, 2017 Frequency: Modified Program (IRF) (Five times per week.) Estimated Hrs Per Day: .5 hour per day Rehab Potential: Fair Safety Risks/Education Teaching Recipient: Patient Teaching Methods: Demonstration, Discussion Response to Teaching: Verbalize Understanding, Reinforcement Needed Education Topics Provided: Word-Finding and Orientation Strategies Time Speech Therapy Time In: 08:30 Speech Therapy Time Out: 09:00 Total Billed Time: 30 Billed Treatment Time 1KELSEY [facility] ST Aug 05, 2017 11:04
--- NOTE | 2017-08-05 14:38 | Therapy Group Daily Note ---
Therapy Daily Group Note Patient Education Topic Home Safety Exercises LE Seated Exercise, UE Exercise Other/Notes Pt ambulated 50' to group therapy with FWW and CGA for safety. Pt participated in group introduction (name, where patient is from, first car). Pt participated in activity for education on common indoor signs and home safety awareness. Pt responded appropriately in peer interactions but did not initiate or contribute to conversations with peers. Pt participated in seated LE and UE exercises and demonstrated understanding and correct form. Pt ambulated 50' back to room with FWW and CGA and was seated in chair, chair alarm on, with nurse call, phone, tray in reach post tx. Start Time: 12:59 Stop Time: 14:11 Total Billed Treatment Time: 72 Total Billed Treatment 1 - GRP [facility] BENEFITS COORDINATOR Aug 05, 2017 14:38
[2017-08-05] MEDS ORDERED: warFARin 3 MG (COUMADIN) TAB PO SCH (18:00)
[2017-08-05] MEDS ORDERED: warFARin 5 MG (COUMADIN) TAB PO SCH (18:00)
[2017-08-05] MEDS: ENOXAPARIN 40 MG/0.4 ML (LOVENOX) SYR SC SCH (18:29)
[2017-08-05 18:41] VITALS: BP 125/66
[2017-08-05] MEDS: DONEPEZIL 5 MG (ARICEPT) TAB PO SCH (20:20)
[2017-08-05] MEDS: ATORVASTATIN 40 MG (LIPITOR) TABLET PO SCH (20:20)
[2017-08-06 05:23] VITALS: BP 144/62
[2017-08-06 05:45] LABS: INR 1.2 (0.8-1.4); PROTHROMBIN TIME PATIENT 15.1 SEC (12.2-14.7)
[2017-08-06] MEDS: KCL 10 MEQ TAB (MICRO K) PO SCH (06:09)
[2017-08-06] MEDS: PANTOPRAZOLE 40 MG (PROTONIX) TAB PO SCH ×2 (06:09→20:48)
[2017-08-06] MEDS: FERROUS SULF 325 MG (IRON) TAB PO SCH ×2 (06:09→16:41)
--- NOTE | 2017-08-06 08:22 | Progress Note (SOAP) ---
Subjective Time Seen by Provider: 08:05 Subjective/Events-last exam CVA. Dementia. History of atrial fibrillation. Pacemaker Patient voices no complaints Objective Exam Vital Signs Date Time Temp Pulse Resp B/P (MAP) Pulse Ox O2 Delivery O2 Flow Rate FiO2 08/06/17 05:23 99.5 62 18 144/62 95 Room Air 08/05/17 20:30 Room Air 08/05/17 18:41 98.9 62 14 125/66 96 Room Air 08/05/17 13:00 98.6 08/05/17 08:30 Room Air 08/05/17 08:21 99.0 Capillary Refill : Less Than 3 Seconds General Appearance: No Apparent Distress, WD/WN HEENT: Normal ENT Inspection Neck: Full Range of Motion, Normal Inspection Respiratory: No Accessory Muscle Use, No Respiratory Distress Cardiovascular: Regular Rate, Rhythm Results Lab Laboratory Tests 08/06/17 05:05: Prothrombin Time 15.1H, INR Comment 1.2 Assessment/Plan Assessment/Plan Assess & Plan/Chief Complaint CVA. Dementia. Coronary artery Disease. Hyperlipidemia. Hypertension. . 08/05/17. CVA. Dementia. Coronary artery. Disease . Hypertension. Hyperlipidemia. Patient appears happy today. . Clinical Quality Measures DVT/VTE Risk/Contraindication: Risk Factor Score Per Nursin RFS Level Per Nursing on Admit: 3=High MAURICE FULLER DO Aug 06, 2017 08:22
[2017-08-06] MEDS: FUROSEMIDE 40 MG (LASIX) TAB PO SCH (09:01)
[2017-08-06] MEDS: amLODIPine 5 MG (NORVASC) TAB PO SCH (09:01)
--- NOTE | 2017-08-06 09:34 | PM & R (SOAP) Progress Note ---
Subjective Time Seen by Provider: 08:05 Subjective/Events-last exam Patient was seen in his room this AM Patient SBA for transfers INR still at 1.2 although Coumadin dose increased yesterday Lovenox SUBCUT continues. Objective Exam Last Set of Vital Signs Vital Signs Date Time Temp Pulse Resp B/P (MAP) Pulse Ox O2 Delivery O2 Flow Rate FiO2 08/06/17 09:00 98.6 08/06/17 05:23 62 18 144/62 95 Room Air Capillary Refill : Less Than 3 Seconds I&O Intake and Output 08/07/17 00:00 Intake Total 500 ml Balance 500 ml Intake Oral 500 ml # Voids 4 General: Alert, Cooperative, No Acute Distress HEENT: Atraumatic, PERRLA, EOMI, Mucous Memb Moist/[place], Other (aphasia and dysphagia) Neck: Supple, No JVD Lungs: Clear to Auscultation Heart: Regular Rate Abdomen: Normal Bowel Sounds, Soft, No Tenderness Extremities: No Edema Neuro: Other (as per above as well as mild rt sided neglect and mildly weak rt ankle dorsiflexors) Results Lab Laboratory Tests 08/04/17 00:15: Urine Color YELLOW, Urine Clarity CLEAR, Urine pH 5, Urine Specific [place] 1.025H, Urine Protein NEGATIVE, Urine Glucose (UA) NEGATIVE, Urine Ketones NEGATIVE, Urine Nitrite NEGATIVE, Urine Bilirubin NEGATIVE, Urine Urobilinogen NORMAL, Urine Leukocyte Esterase 2+H, Urine RBC (Auto) NEGATIVE, Urine RBC NONE , Urine WBC 2-5, Urine Squamous Epithelial Cells 2-5, Urine Crystals NONE, Urine Bacteria TRACE, Urine Casts NONE, Urine Mucus SMALLH, Urine Culture Indicated NO 08/04/17 06:00: White Blood Count 6.9, Red Blood Count 3.60L, Hemoglobin 9.8L, Hematocrit 32L, Mean Corpuscular Volume 89, Mean Corpuscular Hemoglobin 27, Mean Corpuscular Hemoglobin Concent 31L, Red Cell Distribution Width 15.7H, Platelet Count 265, Mean Platelet Volume 9.0, Neutrophils (%) (Auto) 63, Lymphocytes (%) (Auto) 21, Monocytes (%) (Auto) 11, Eosinophils (%) (Auto) 4, Basophils (%) (Auto) 1, Neutrophils # (Auto) 4.4, Lymphocytes # (Auto) 1.5, Monocytes # (Auto) 0.7, Eosinophils # (Auto) 0.3, Basophils # (Auto) 0.1, Prothrombin Time 15.6H, INR Comment 1.2, Sodium Level 139, Potassium Level 3.8, Chloride Level 107, Carbon Dioxide Level 23, Anion Gap 9, Blood Urea Nitrogen 11, Creatinine 0.80, Estimat Glomerular Filtration Rate > 60, BUN/Creatinine Ratio 14, Glucose Level 109H, Calcium Level 8.8, Total Bilirubin 0.8, Aspartate Amino Transf (AST/SGOT) 14, Alanine Aminotransferase (ALT/SGPT) 15, Alkaline Phosphatase 70, Total Protein 6.2L, Albumin 3.2 08/05/17 05:20: Prothrombin Time 14.8H, INR Comment 1.2 08/06/17 05:05: Prothrombin Time 15.1H, INR Comment 1.2 Assessment/Plan Assessment 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
--- NOTE | 2017-08-06 10:00 | Physical Therapy Daily Note ---
PT Daily Note-Current Subjective Pt was sitting in chair prior to tx, and agreeable to PT. Pt has no complaints of pain. Pt was sitting in chair, chair alarm on, with nurse call, phone, tray, all needs met post tx. Pain Numeric Pain Scale: 0-No Pain Location: No Pain Reported Mental Status Patient Orientation: Person, Place, Situation Transfers Functional [place] Measure 0=Not Assessed/NA 4=Minimal Assistance 1=Total Assistance 5=Supervision or Setup 2=Maximal Assistance 6=Modified [place] 3=Moderate Assistance 7=Complete IndependenceIRFPAI Quality Coding Scale 6 Independent with activity with or without an assistive device 5 Patient requires set up or clean up by helper. Patient completes activity by themselves 4 Supervision or touching assist (CGA). [place] provide cues , steadying assist 3 The helper provides less than half the effort to complete the activity 2 The helper provides more than half the effort to complete the activity 1 Dependent. The helper does all the effort to complete an activity 7 Patient refused to complete or attempt activity 9 The patient did not perform the activity before the current illness or injury 88 Not attempted due to Medical conditions or safety concerns Transfers (B, C, W/C) (FIM): 5 Sit to/from Stand: 5 Pt completes sit<>stand with supervision for safety. Gait Training Does the Patient Walk?: Yes Gait (FIM): 4 Distance (FIM): 3=150 ft Distance: 250'x2 Gait Level of Assist: 4 Gait Persons Needed: 1 Gait Assistive Device: FWW Pt ambulates 250'x2 with FWW and CGA for safety. Pt has hunched posture, is verbally cued to stand up tall. Pt is steady and has no LOB. Pt ambulates in an indoor and outdoor environment, navigates sidewalks and uneven terrain. Stair Training Stair Training: Handrails/: 2 handrails Stairs (FIM): 2 #of Steps: 4 Stairs: Pattern: Step to Level of Assist: 4 Pt completes 4 stepsx2 with CGA for safety. Exercises Seated Therapy Exercises: Ankle pumps, Long arc quads, Hamstring Curls Seated Reps: 20 Standing: Sit to Stand Standing Reps: 30 Treatments Pt completes gait training and stair training to increase endurance and functional mobility. Pt completes sit<>stands with emphasis on posture and extending back 3x10 and seated LE strengthening with theraband for functional strengthening. Assessment Current Status: Fair Progress Pt mobility is improving. Pt reports knees are sore during treatment due to weather. PT Short Term Goals Short Term Goals Time Frame: Aug 11, 2017 Gait (FIM): 4 Gait Distance Comment: 200' Gait Level of Assist: 4 Gait Assistive Device: FWW PT Television Engineer Goals Senior Living Goals PT Television Engineer Goals Time Frame: Aug 25, 2017 Transfers (B,C,W/C) (FIM): 7 Sit to Lying (QC): 6 Lying-Sitting on Side/Bed(QC): 6 Sit to Stand (QC): 6 Rollin Roll Left to Right (QC): 6 Chair/Gmm-rw-Jczff Xfer(QC): 6 Car Transfer (QC): 4 Gait (FIM): 6 Distance: 250' Walk 10 feet (QC): 6 Walk 10ft-Uneven Surface(QC): 6 Walk 50ft with 2 Turns (QC): 6 Walk 150 ft (QC): 6 Gait Level of Assist: 6 Gait Assistive Device: FWW Stairs (FIM): 5 # of Steps: 12 1 Step (curb) (QC): 4 4 Steps (QC): 4 12 Steps (QC): 4 Stairs Level Of Assist: 5 Picking up an Object (QC): 4 PT Plan Problem List Problem List: Activity Tolerance, Functional Strength, Safety, Balance, Gait, Transfer, Bed Mobility, ROM Treatment/Plan Treatment Plan: Continue Plan of Care Treatment Plan: Bed Mobility, Education, Functional Activity Dave, Functional Strength, Group Therapy, Gait, Safety, Therapeutic Exercise, Transfers Treatment Duration: Aug 25, 2017 Frequency: At least 5 of 7 days/Wk (IRF) Estimated Hrs Per Day: 1.5 hours per day Patient and/or Family Agrees t: Yes Safety Risks/Education Patient Education: Gait Training, Transfer Techniques, Steps, Reviewed Precautions, Correct Positioning, Safety Issues Teaching Recipient: Patient Teaching Methods: Demonstration, Discussion Response to Teaching: Verbalize Understanding, Reinforcement Needed Time/GCodes Time In: 900 Time Out: 959 Total Billed Treatment Time: 59 Total Billed Treatment 1 visit GT 44 EX 15 ANA FUNEZ PT Aug 06, 2017 10:00
--- NOTE | 2017-08-06 10:37 | Speech Therapy Daily Note ---
Speech Daily Progress Note Subjective Date Seen by Provider: Aug 06, 2017 Time Seen by Provider: 08:30 The patient was seated upright in recliner upon entrance. The patient greeted the clinician appropriately and was agreeable to participation in the speech and language session. Objective Orientation: The patient is accurately oriented to month, day of week, the vice president sales, and the year (independently). Word-Finding: The patient was provided a specific category and asked to name an item that "fit into" the category and was initiated with a specific letter. The patient displayed increased accuracy with this task, however, continues to require continued verbal cueing and prompts. On this date, the patient's accuracy was 75%. Assessment Assessment Current Status: Good Progress Treatment Plan Continue Plan of Care Communication Comprehension: 4 Expression: 3 Social Cognition Social Interaction: 4 Problem Solvin Memory: 4 Speech Short Term Goals Short Term Goals Short Term Goals 1. The patient will complete structured word-finding exercises with 90% accuracy and mild clinician cueing. 2. The patient will follow simple, two step commands with 80% accuracy and mild clinician cueing. 3. The patient will display 80% accuracy with confrontational naming of pictures with mild clinician cueing. Time Frame-ST Days Speech Copywriting Intern Goals Copywriting Intern Goals 1. The patient will improve cognitive linguistic skills for increased function and safety with ADL's. Time Frame: Two Weeks Memory: 3 Speech-Plan Treatment Plan Speech Therapy Treatment Plan: Continue Plan of Care Continue skilled speech pathology to target functional expressive language. Treatment Duration: Aug 25, 2017 Frequency: Modified Program (IRF) (Five times per week.) Estimated Hrs Per Day: .5 hour per day Rehab Potential: Fair Safety Risks/Education Teaching Recipient: Patient Teaching Methods: Discussion Response to Teaching: Return Demonstration, Reinforcement Needed Education Topics Provided: Word-Finding Strategies Time Speech Therapy Time In: 08:30 Speech Therapy Time Out: 09:00 Total Billed Time: 30 Billed Treatment Time 1, PEPE NEWELL Aug 06, 2017 10:37
--- NOTE | 2017-08-06 10:59 | Occupational Ther Daily Note ---
OT Current Status-Daily Note Subjective Pt alert, sitting in chair. No c/o pain. Agrees to shower. Mental Status/Objective Patient Orientation: Person, Place, Time, Situation Functional [place] Measure 0=Not Assessed/NA 4=Minimal Assistance 1=Total Assistance 5=Supervision or Setup 2=Maximal Assistance 6=Modified [place] 3=Moderate Assistance 7=Complete [place] ADL-Treatment Functional [place] Measure 0=Not Assessed/NA 4=Minimal Assistance 1=Total Assistance 5=Supervision or Setup 2=Maximal Assistance 6=Modified [place] 3=Moderate Assistance 7=Complete IndependenceIRFPAI Quality Coding Scale 6 Independent with activity with or without an assistive device 5 Patient requires set up or clean up by helper. Patient completes activity by themselves 4 Supervision or touching assist (CGA). [place] provide cues , steadying assist 3 The helper provides less than half the effort to complete the activity 2 The helper provides more than half the effort to complete the activity 1 Dependent. The helper does all the effort to complete an activity 7 Patient refused to complete or attempt activity 9 The patient did not perform the activity before the current illness or injury 88 Not attempted due to Medical conditions or safety concerns Grooming (FIM): 6 (Pt able to complete grooming while seated at sink. ) Bathing (FIM): 5 (Pt completes bathing using shower bench, grab bars, and handheld shower with SBA.) Bathing Location: L Arm, R Arm, L Upper Leg, R Upper Leg, L Lower Leg ( including foot), R Lower Leg (including foot), Chest, Abdomen, Buttocks, Perineal Area Upper Body (FIM): 5 (After set up, pt able to complete upper body dressing while seated. ) Lower Body Dressing (FIM): 5 (Pt able to pull down pants and underwear while standing with SBA. Doffs socks and shoes by self. Pt dons underwear and pants while seated with SBA while standing to pull up over hips. Pt dons socks by self while seated. ) Toileting (FIM): 5 (Pt completes hygiene while seated and manipulation of clothing while standing with SBA.) Toilet/Commode Transfer (FIM): 4 (Pt transfers to toilet using FWW and grab bars with CGA.) Shower Transfer(FIM): 4 (CGA while pt transfers into shower using FWW, grab bars, and shower bench.) Other Treatment After therapy, pt sitting in recliner with phone and call light in reach and safety measures in place. All needs met. OT Short Term Goals Short Term Goals Time Frame: Aug 11, 2017 Lower Body Dressing(FIM): 5 Toileting(FIM): 5 Toilet/Commode Transfer(FIM): 5 1=Demonstrate adherence to instructed precautions during ADL tasks. 2=Patient will verbalize/demonstrate understanding of assistive devices/ modifications for ADL. 3=Patient will improve strength/tolerance for activity to enable patient to perform ADL's. OT Invertebrate Paleontologist Goals [facility] Goals Time Frame: Aug 25, 2017 Eating (FIM): 6 Eating (QC): 6 Groomin Oral Hygiene (QC): 6 Bathing(FIM): 5 Shower/Bathe Self (QC): 5 Upper Body Dressing(FIM): 6 Upper Body Dressing (QC): 6 Lower Body Dressing(FIM): 6 Lower Body Dressing (QC): 6 On/Off Footwear (QC): 6 Toileting(FIM): 6 Toileting Hygiene (QC): 6 Toilet/Commode Transfer(FIM): 6 Toilet/Commode Transfer (QC): 6 Shower Transfer(FIM): 5 Memory(FIM): 3 Additional Goals: 2-Verbalize Understanding, 3-ImproveStrength/Dave 1=Demonstrate adherence to instructed precautions during ADL tasks. 2=Patient will verbalize/demonstrate understanding of assistive devices/ modifications for ADL. 3=Patient will improve strength/tolerance for activity to enable patient to perform ADL's. OT Education/Plan Problem List/Assessment Pt demonstrates decreased ADL functioning, mobility, activity tolerance, and safety awareness. Pt to benefit from skilled OT intervention for ADL training, transfers, strengthening, and home safety education to maximize level of function and allow safe discharge plan. Discharge Recommendations Plan/Recommendations: Continue POC Treatment Plan/Plan of Care Patient would benefit from OT for education, treatment and training to promote independence in ADL's, mobility, safety and/or upper extremity function for ADL' s. Plan of Care: ADL Retraining, Functional Mobility, Group Exercise/Act as Ind, UE Funct Exercise/Act, UE Neuromus Re-Ed/Coord Treatment Duration: Aug 25, 2017 Frequency: At least 5 of 7 days/Wk (IRF) Estimated Hrs Per Day: 1.5 hours per day Agreement: Yes Rehab Potential: Fair Time/GCodes Start Time: 10:00 Stop Time: 11:00 Total Time Billed (hr/min): 60 Billed Treatment Time 1 visit, ADL 4 (60 minutes) AUGUST GARCIA Aug 06, 2017 10:59
--- NOTE | 2017-08-06 13:36 | Physical Therapy Daily Note ---
PT Daily Note-Current Subjective Pt was sitting in chair prior to tx and agreeable to PT. Pt had no complaints of pain. Pt was sitting in chair, nurse call, phone, walker in reach, all needs met post tx, family in room. Pain Numeric Pain Scale: 0-No Pain Location: No Pain Reported Mental Status Patient Orientation: Person, Place, Situation Transfers Functional [place] Measure 0=Not Assessed/NA 4=Minimal Assistance 1=Total Assistance 5=Supervision or Setup 2=Maximal Assistance 6=Modified [place] 3=Moderate Assistance 7=Complete IndependenceIRFPAI Quality Coding Scale 6 Independent with activity with or without an assistive device 5 Patient requires set up or clean up by helper. Patient completes activity by themselves 4 Supervision or touching assist (CGA). [place] provide cues , steadying assist 3 The helper provides less than half the effort to complete the activity 2 The helper provides more than half the effort to complete the activity 1 Dependent. The helper does all the effort to complete an activity 7 Patient refused to complete or attempt activity 9 The patient did not perform the activity before the current illness or injury 88 Not attempted due to Medical conditions or safety concerns Transfers (B, C, W/C) (FIM): 5 Scootin Sit to/from Stand: 5 Pt completes all transfers with supervision for safety. Gait Training Does the Patient Walk?: Yes Gait (FIM): 2 Distance (FIM): 3=150 ft Distance: 100'x2, 150' Gait Level of Assist: 5 Gait Persons Needed: 1 Gait Assistive Device: FWW Pt ambulates with FWW and supervision for safety. Pt has hunched posture, and is verbally cued to stand up straight. Pt is steady with gait, does not sway, no LOB. Exercises Standing: Stepping over objects, Unilateral stance Standing Reps: 10 Treatments Pt completes [place] Balance/Gait Assessment in tx and scored 24/28 which indicates the patient is a low fall risk. Pt completes gait training and standing balance activities to increase balance, functional strength and endurance. Assessment Current Status: Good Progress Pt completes Tinetti and scores 24/28 which indicates the patient is a low fall risk. Pt has demonstrated he can ambulate and navigate obstacles with FWW safely , steady with no LOB. PT discusses with patient being able to walk in room and to bathroom. PT emphasizes use of walker with ambulation and pt agrees to use walker when ambulating in his room by himself. Nursing is notified about patient 's ability to get up and use restroom by himself. PT Short Term Goals Short Term Goals Time Frame: Aug 11, 2017 Gait (FIM): 4 Gait Distance Comment: 200' Gait Level of Assist: 4 Gait Assistive Device: FWW PT Guidance Secretary Goals Guidance Secretary Goals PT [facility]fp Goals Time Frame: Aug 25, 2017 Transfers (B,C,W/C) (FIM): 7 Sit to Lying (QC): 6 Lying-Sitting on Side/Bed(QC): 6 Sit to Stand (QC): 6 Rollin Roll Left to Right (QC): 6 Chair/Inp-la-[place] Xfer(QC): 6 Car Transfer (QC): 4 Gait (FIM): 6 Distance: 250' Walk 10 feet (QC): 6 Walk 10ft-Uneven Surface(QC): 6 Walk 50ft with 2 Turns (QC): 6 Walk 150 ft (QC): 6 Gait Level of Assist: 6 Gait Assistive Device: FWW Stairs (FIM): 5 # of Steps: 12 1 Step (curb) (QC): 4 4 Steps (QC): 4 12 Steps (QC): 4 Stairs Level Of Assist: 5 Picking up an Object (QC): 4 PT Plan Problem List Problem List: Activity Tolerance, Functional Strength, Safety, Balance, Gait, Transfer, Bed Mobility, ROM Treatment/Plan Treatment Plan: Continue Plan of Care Treatment Plan: Bed Mobility, Education, Functional Activity Dave, Functional Strength, Group Therapy, Gait, Safety, Therapeutic Exercise, Transfers Treatment Duration: Aug 25, 2017 Frequency: At least 5 of 7 days/Wk (IRF) Estimated Hrs Per Day: 1.5 hours per day Patient and/or Family Agrees t: Yes Safety Risks/Education Patient Education: Gait Training, Transfer Techniques, Reviewed Precautions, Correct Positioning, Safety Issues Teaching Recipient: Patient Teaching Methods: Demonstration, Discussion Response to Teaching: Verbalize Understanding, Reinforcement Needed Time/GCodes Time In: 1402 Time Out: 1433 Total Billed Treatment Time: 31 Total Billed Treatment 1 visit GT 15 FA 16 ANA FUNEZ PT Aug 06, 2017 13:36
--- NOTE | 2017-08-06 14:11 | Occupational Ther Daily Note ---
OT Current Status-Daily Note Subjective Pt alert, sitting in recliner. Pt stated that he didn't need alarms anymore that he could get up and go to the bathroom as long as he used the FWW by himself. No c/o pain. Pt agreed to therapy. Mental Status/Objective Patient Orientation: Person, Place, Time, Situation Functional [place] Measure 0=Not Assessed/NA 4=Minimal Assistance 1=Total Assistance 5=Supervision or Setup 2=Maximal Assistance 6=Modified [place] 3=Moderate Assistance 7=Complete [place] ADL-Treatment Functional [place] Measure 0=Not Assessed/NA 4=Minimal Assistance 1=Total Assistance 5=Supervision or Setup 2=Maximal Assistance 6=Modified [place] 3=Moderate Assistance 7=Complete IndependenceIRFPAI Quality Coding Scale 6 Independent with activity with or without an assistive device 5 Patient requires set up or clean up by helper. Patient completes activity by themselves 4 Supervision or touching assist (CGA). [place] provide cues , steadying assist 3 The helper provides less than half the effort to complete the activity 2 The helper provides more than half the effort to complete the activity 1 Dependent. The helper does all the effort to complete an activity 7 Patient refused to complete or attempt activity 9 The patient did not perform the activity before the current illness or injury 88 Not attempted due to Medical conditions or safety concerns Other Treatment Pt ambulated to therapy gym with FWW. Pt completed arm bike duration 8 min for 30 soria resistance to increase strength and activity tolerance for daily functional tasks. Pt then ambulated back to room with FWW and completed dynamic reaching without any loss of balance. After therapy, pt sitting in recliner with call light/phone in reach. All needs met in room. OT Short Term Goals Short Term Goals Time Frame: Aug 11, 2017 Lower Body Dressing(FIM): 5 Toileting(FIM): 5 Toilet/Commode Transfer(FIM): 5 1=Demonstrate adherence to instructed precautions during ADL tasks. 2=Patient will verbalize/demonstrate understanding of assistive devices/ modifications for ADL. 3=Patient will improve strength/tolerance for activity to enable patient to perform ADL's. OT Nursing Home Goals Field Training Manager Goals Time Frame: Aug 25, 2017 Eating (FIM): 6 Eating (QC): 6 Groomin Oral Hygiene (QC): 6 Bathing(FIM): 5 Shower/Bathe Self (QC): 5 Upper Body Dressing(FIM): 6 Upper Body Dressing (QC): 6 Lower Body Dressing(FIM): 6 Lower Body Dressing (QC): 6 On/Off Footwear (QC): 6 Toileting(FIM): 6 Toileting Hygiene (QC): 6 Toilet/Commode Transfer(FIM): 6 Toilet/Commode Transfer (QC): 6 Shower Transfer(FIM): 5 Memory(FIM): 3 Additional Goals: 2-Verbalize Understanding, 3-ImproveStrength/Dave 1=Demonstrate adherence to instructed precautions during ADL tasks. 2=Patient will verbalize/demonstrate understanding of assistive devices/ modifications for ADL. 3=Patient will improve strength/tolerance for activity to enable patient to perform ADL's. OT Education/Plan Problem List/Assessment Pt demonstrates decreased ADL functioning, mobility, activity tolerance, and safety awareness. Pt to benefit from skilled OT intervention for ADL training, transfers, strengthening, and home safety education to maximize level of function and allow safe discharge plan. Discharge Recommendations Plan/Recommendations: Continue POC Treatment Plan/Plan of Care Patient would benefit from OT for education, treatment and training to promote independence in ADL's, mobility, safety and/or upper extremity function for ADL' s. Plan of Care: ADL Retraining, Functional Mobility, Group Exercise/Act as Ind, UE Funct Exercise/Act, UE Neuromus Re-Ed/Coord Treatment Duration: Aug 25, 2017 Frequency: At least 5 of 7 days/Wk (IRF) Estimated Hrs Per Day: 1.5 hours per day Agreement: Yes Rehab Potential: Fair Time/GCodes Start Time: 13:00 Stop Time: 13:30 Total Time Billed (hr/min): 30 Billed Treatment Time 1 visit-EX 1 (15 min) AUGUST GARCIA Aug 06, 2017 14:11
[2017-08-06] MEDS: warFARin 5 MG (COUMADIN) TAB PO SCH (17:01)
[2017-08-06] MEDS: ENOXAPARIN 40 MG/0.4 ML (LOVENOX) SYR SC SCH (17:32)
[2017-08-06] MEDS ORDERED: warFARin 3 MG (COUMADIN) TAB PO NR (18:00)
[2017-08-06 18:38] VITALS: BP 145/72
[2017-08-06] MEDS: DONEPEZIL 5 MG (ARICEPT) TAB PO SCH (20:48)
[2017-08-06] MEDS: ATORVASTATIN 40 MG (LIPITOR) TABLET PO SCH (20:48)
[2017-08-07 05:00] VITALS: BP 107/50
[2017-08-07 05:51] LABS: INR 1.4 (0.8-1.4); PROTHROMBIN TIME PATIENT 17.2 SEC (12.2-14.7)
[2017-08-07] MEDS: PANTOPRAZOLE 40 MG (PROTONIX) TAB PO SCH ×2 (06:13→20:07)
[2017-08-07] MEDS: KCL 10 MEQ TAB (MICRO K) PO SCH (06:13)
[2017-08-07] MEDS: FERROUS SULF 325 MG (IRON) TAB PO SCH ×2 (06:13→18:16)
--- NOTE | 2017-08-07 07:52 | Occupational Ther Daily Note ---
OT Current Status-Daily Note Subjective Pt sitting in chair, agrees to treatment. Pt has no c/o pain. Mental Status/Objective Functional [place] Measure 0=Not Assessed/NA 4=Minimal Assistance 1=Total Assistance 5=Supervision or Setup 2=Maximal Assistance 6=Modified [place] 3=Moderate Assistance 7=Complete [place] ADL-Treatment Pt sit to stand from chair with modified independence. Gait to restroom with FWW , supervision for safety. Pt stood at toilet to urinate with SBA. Pt able to manage clothing. Stood at sink to wash hands without assistance. Pt transferred to walk in shower with SBA. Doffed clothing with SBA. Pt able to wash/dry all areas with SBA. Don underwear and pants with supervision for balance during standing for pant hike. Grooming tasks completed seated at sink. Pt shaved face, brushed teeth, and combed hair with modified independence while seated. Don pullover shirt with set up. Pt sitting in chair with needs met after session. Functional [place] Measure 0=Not Assessed/NA 4=Minimal Assistance 1=Total Assistance 5=Supervision or Setup 2=Maximal Assistance 6=Modified [place] 3=Moderate Assistance 7=Complete IndependenceIRFPAI Quality Coding Scale 6 Independent with activity with or without an assistive device 5 Patient requires set up or clean up by helper. Patient completes activity by themselves 4 Supervision or touching assist (CGA). [place] provide cues , steadying assist 3 The helper provides less than half the effort to complete the activity 2 The helper provides more than half the effort to complete the activity 1 Dependent. The helper does all the effort to complete an activity 7 Patient refused to complete or attempt activity 9 The patient did not perform the activity before the current illness or injury 88 Not attempted due to Medical conditions or safety concerns Grooming (FIM): 6 Oral Hygiene (QC): 6 Bathing (FIM): 5 Shower/Bathe Self (QC): 4 Lower Body Dressing (FIM): 5 Lower Body Dressing (QC): 4 Shower Transfer(FIM): 5 Other Treatment Pt performed gait to therapy gym with FWW. Pt has flexed posture, requires cues for posture and safety. Arm bike x10 minutes to promote increased overall strength and activity tolerance needed for functional tasks. Pt completed task with moderate resistance and steady pace. No rest breaks needed. Pt performed bilateral UE exercises to increase strength for ADLs and transfers. Pt performed shoulder abduction, biceps curls, and triceps extension exercises x20 reps with moderate resistance (red) theraband. Rest breaks taken between exercises. Occasional cues required for proper exercise technique. Pt completed tabletop peg activity with bilateral UE with 2# weights in place to increase strength and coordination. Pt has mild difficulty placing pegs into pegboard, requires increased time for task. Graded clothespin task completed with bilateral hand to increase brake holder/pinch strength. Pt has difficulty completing task with left hand. OT Short Term Goals Short Term Goals Time Frame: Aug 11, 2017 Lower Body Dressing(FIM): 5 Toileting(FIM): 5 Toilet/Commode Transfer(FIM): 5 1=Demonstrate adherence to instructed precautions during ADL tasks. 2=Patient will verbalize/demonstrate understanding of assistive devices/ modifications for ADL. 3=Patient will improve strength/tolerance for activity to enable patient to perform ADL's. OT Correction Goals Correction Goals Time Frame: Aug 25, 2017 Eating (FIM): 6 Eating (QC): 6 Groomin Oral Hygiene (QC): 6 Bathing(FIM): 5 Shower/Bathe Self (QC): 5 Upper Body Dressing(FIM): 6 Upper Body Dressing (QC): 6 Lower Body Dressing(FIM): 6 Lower Body Dressing (QC): 6 On/Off Footwear (QC): 6 Toileting(FIM): 6 Toileting Hygiene (QC): 6 Toilet/Commode Transfer(FIM): 6 Toilet/Commode Transfer (QC): 6 Shower Transfer(FIM): 5 Memory(FIM): 3 Additional Goals: 2-Verbalize Understanding, 3-ImproveStrength/Dave 1=Demonstrate adherence to instructed precautions during ADL tasks. 2=Patient will verbalize/demonstrate understanding of assistive devices/ modifications for ADL. 3=Patient will improve strength/tolerance for activity to enable patient to perform ADL's. OT Education/Plan Problem List/Assessment Pt demonstrates decreased ADL functioning, mobility, activity tolerance, and safety awareness. Pt to benefit from skilled OT intervention for ADL training, transfers, strengthening, and home safety education to maximize level of function and allow safe discharge plan. Discharge Recommendations Plan/Recommendations: Continue POC Treatment Plan/Plan of Care Patient would benefit from OT for education, treatment and training to promote independence in ADL's, mobility, safety and/or upper extremity function for ADL' s. Plan of Care: ADL Retraining, Functional Mobility, Group Exercise/Act as Ind, UE Funct Exercise/Act, UE Neuromus Re-Ed/Coord Treatment Duration: Aug 25, 2017 Frequency: At least 5 of 7 days/Wk (IRF) Estimated Hrs Per Day: 1.5 hours per day Agreement: Yes Rehab Potential: Fair Time/GCodes Start Time: 07:00 Stop Time: 08:30 Total Time Billed (hr/min): 90 Billed Treatment Time 1 visit, EXx4(60minutes), ADLx2(30minutes) HARDY DYKES OT Aug 07, 2017 07:52
[2017-08-07] MEDS: FUROSEMIDE 40 MG (LASIX) TAB PO SCH (09:23)
[2017-08-07] MEDS: amLODIPine 5 MG (NORVASC) TAB PO SCH (09:23)
--- NOTE | 2017-08-07 12:53 | Physical Therapy Daily Note ---
PT Daily Note-Current Subjective Pt agreeable. Pt without complaint. When asked to rate pain pt reports he has his 'normal arthritis pain" of 8/10 located in his arms and back. Pt also notes (R) knee pain 8/10. Mental Status Patient Orientation: Person, Place, Situation Pt requests to go to BR 3x during treatment. Transfers Functional [place] Measure 0=Not Assessed/NA 4=Minimal Assistance 1=Total Assistance 5=Supervision or Setup 2=Maximal Assistance 6=Modified [place] 3=Moderate Assistance 7=Complete IndependenceIRFPAI Quality Coding Scale 6 Independent with activity with or without an assistive device 5 Patient requires set up or clean up by helper. Patient completes activity by themselves 4 Supervision or touching assist (CGA). [place] provide cues , steadying assist 3 The helper provides less than half the effort to complete the activity 2 The helper provides more than half the effort to complete the activity 1 Dependent. The helper does all the effort to complete an activity 7 Patient refused to complete or attempt activity 9 The patient did not perform the activity before the current illness or injury 88 Not attempted due to Medical conditions or safety concerns All transfers mod (I). All BR mobility mod (I). Gait Training Gait Assistive Device: FWW Pt forward flexed, amb SBA with increased weight through UE's on FWW 2 x 250ft, 1 x 150ft. Pt demonstrates good stride, good speed and good balance during gait training. Pt allowed to rest between bouts. Stair Training Stair Training: Handrails/: 2 handrails #of Steps: 8 Stairs: Pattern: Step to SBA Exercises Seated Therapy Exercises: Long arc quads, Hip flexion Seated Reps: [address] Ex=Flex, Abd, Ext, Marching, Mini squats, Sit to Stand, Side steps Standing Reps: 15 NuStep Minutes: 2 NuStep Workload: 4 Assessment Current Status: Good Progress Pt donna well with good performance, intermittent rest breaks as needed. Pt participation on Nu-step limited by (R) knee pain. Only able to complete 2 min. Pt feeling need to go to BR due to Lasix. Pt demonstrates good balance throughout treatment. When using the BR and the urinal, pt hurrying but able to complete all mod(I). Pt back to chair with call light and all needs met. PT Short Term Goals Short Term Goals Time Frame: Aug 11, 2017 Gait (FIM): 4 Gait Distance Comment: 200' Gait Level of Assist: 4 Gait Assistive Device: FWW PT Long-Term Goals Long-Term Goals PT Long-Term Goals Time Frame: Aug 25, 2017 Transfers (B,C,W/C) (FIM): 7 Sit to Lying (QC): 6 Lying-Sitting on Side/Bed(QC): 6 Sit to Stand (QC): 6 Rollin Roll Left to Right (QC): 6 Chair/Skw-ce-Tldmx Xfer(QC): 6 Car Transfer (QC): 4 Gait (FIM): 6 Distance: 250' Walk 10 feet (QC): 6 Walk 10ft-Uneven Surface(QC): 6 Walk 50ft with 2 Turns (QC): 6 Walk 150 ft (QC): 6 Gait Level of Assist: 6 Gait Assistive Device: FWW Stairs (FIM): 5 # of Steps: 12 1 Step (curb) (QC): 4 4 Steps (QC): 4 12 Steps (QC): 4 Stairs Level Of Assist: 5 Picking up an Object (QC): 4 PT Plan Treatment/Plan Treatment Plan: Continue Plan of Care Treatment Plan: Bed Mobility, Education, Functional Activity Dave, Functional Strength, Group Therapy, Gait, Safety, Therapeutic Exercise, Transfers Treatment Duration: Aug 25, 2017 Frequency: At least 5 of 7 days/Wk (IRF) Estimated Hrs Per Day: 1.5 hours per day Patient and/or Family Agrees t: Yes Time/GCodes Time In: 915 Time Out: 1045 Total Billed Treatment Time: 90 Total Billed Treatment 1, gait x 45min, ther ex 30min, FA x 15min SAMPSON SORTO CPTMallory Aug 07, 2017 12:53
[2017-08-07 18:00] VITALS: BP 137/66
[2017-08-07] MEDS: ENOXAPARIN 40 MG/0.4 ML (LOVENOX) SYR SC SCH (18:16)
[2017-08-07] MEDS: warFARin 5 MG (COUMADIN) TAB PO SCH (18:16)
[2017-08-07] MEDS: ATORVASTATIN 40 MG (LIPITOR) TABLET PO SCH (20:08)
[2017-08-07] MEDS: DONEPEZIL 5 MG (ARICEPT) TAB PO SCH (20:08)
[2017-08-08 05:19] VITALS: BP 162/69
[2017-08-08 05:36] LABS: INR 1.5 (0.8-1.4); PROTHROMBIN TIME PATIENT 18.1 SEC (12.2-14.7)
[2017-08-08] MEDS: FERROUS SULF 325 MG (IRON) TAB PO SCH ×2 (06:10→17:32)
[2017-08-08] MEDS: PANTOPRAZOLE 40 MG (PROTONIX) TAB PO SCH ×2 (06:10→19:38)
[2017-08-08] MEDS: KCL 10 MEQ TAB (MICRO K) PO SCH (06:10)
[2017-08-08 08:55] VITALS: BP 134/74
[2017-08-08] MEDS: amLODIPine 5 MG (NORVASC) TAB PO SCH (09:08)
[2017-08-08] MEDS: FUROSEMIDE 40 MG (LASIX) TAB PO SCH (09:09)
[2017-08-08] MEDS: warFARin 5 MG (COUMADIN) TAB PO SCH (17:32)
[2017-08-08] MEDS: ENOXAPARIN 40 MG/0.4 ML (LOVENOX) SYR SC SCH (17:32)
[2017-08-08] MEDS: DICLOFENAC 1% GEL 100 GM (VOLTAREN) TUBE TOP PRN (17:43)
[2017-08-08 17:44] VITALS: BP 144/77
[2017-08-08] MEDS: DONEPEZIL 5 MG (ARICEPT) TAB PO SCH (19:38)
[2017-08-08] MEDS: ATORVASTATIN 40 MG (LIPITOR) TABLET PO SCH (19:38)
[2017-08-09 05:21] LABS: INR 1.6 (0.8-1.4); PROTHROMBIN TIME PATIENT 19.3 SEC (12.2-14.7)
[2017-08-09 05:43] VITALS: BP 126/69
[2017-08-09] MEDS: FERROUS SULF 325 MG (IRON) TAB PO SCH ×2 (06:08→16:35)
[2017-08-09] MEDS: KCL 10 MEQ TAB (MICRO K) PO SCH (06:08)
[2017-08-09] MEDS: PANTOPRAZOLE 40 MG (PROTONIX) TAB PO SCH ×2 (06:08→20:22)
[2017-08-09] MEDS: amLODIPine 5 MG (NORVASC) TAB PO SCH (07:58)
[2017-08-09] MEDS: FUROSEMIDE 40 MG (LASIX) TAB PO SCH (07:58)
[2017-08-09] MEDS: DICLOFENAC 1% GEL 100 GM (VOLTAREN) TUBE TOP PRN (08:04)
--- NOTE | 2017-08-09 08:38 | Progress Note (SOAP) ---
Subjective Time Seen by Provider: 08:37 Subjective/Events-last exam CVA. Dementia. Patient's blood processes has improved. Patient physically doing better Objective Exam Vital Signs Date Time Temp Pulse Resp B/P (MAP) Pulse Ox O2 Delivery O2 Flow Rate FiO2 08/09/17 08:13 Room Air 08/09/17 07:57 98.4 08/09/17 05:43 99.0 61 18 126/69 94 Room Air 08/08/17 19:48 Room Air 08/08/17 17:44 98.0 63 20 144/77 97 Room Air 08/08/17 08:55 98.1 67 20 134/74 97 Room Air Capillary Refill : Less Than 3 Seconds General Appearance: No Apparent Distress, WD/WN Results Lab Laboratory Tests 08/09/17 05:05: Prothrombin Time 19.3H, INR Comment 1.6H Assessment/Plan Assessment/Plan Assess & Plan/Chief Complaint CVA. Dementia. Coronary artery Disease. Hyperlipidemia. Hypertension. . 08/05/17. CVA. Dementia. Coronary artery. Disease . Hypertension. Hyperlipidemia. Patient appears happy today. . Clinical Quality Measures DVT/VTE Risk/Contraindication: Risk Factor Score Per Nursin RFS Level Per Nursing on Admit: 3=High MAURICE FULLER DO Aug 09, 2017 08:38
--- NOTE | 2017-08-09 10:02 | Occupational Ther Daily Note ---
OT Current Status-Daily Note Subjective Pt agreeable to treatment this morning. No c/o pain. Mental Status/Objective Functional [place] Measure 0=Not Assessed/NA 4=Minimal Assistance 1=Total Assistance 5=Supervision or Setup 2=Maximal Assistance 6=Modified [place] 3=Moderate Assistance 7=Complete [place] ADL-Treatment Pt up ad ulises to restroom when therapist arrives. Pt agrees to shower this morning. Transfer to walk in shower with SBA using grab bars for safety. Pt doffed clothing without assistance. Pt able to wash/dry all areas with increased time after set up. Don pullover shirt with set up. Pt donned underwear and pants after set up. Don socks with set up. Grooming tasks completed seated at sink. Pt brushed teeth and combed hair with modified independence. Increased time for ADL tasks. Functional [place] Measure 0=Not Assessed/NA 4=Minimal Assistance 1=Total Assistance 5=Supervision or Setup 2=Maximal Assistance 6=Modified [place] 3=Moderate Assistance 7=Complete IndependenceIRFPAI Quality Coding Scale 6 Independent with activity with or without an assistive device 5 Patient requires set up or clean up by helper. Patient completes activity by themselves 4 Supervision or touching assist (CGA). [place] provide cues , steadying assist 3 The helper provides less than half the effort to complete the activity 2 The helper provides more than half the effort to complete the activity 1 Dependent. The helper does all the effort to complete an activity 7 Patient refused to complete or attempt activity 9 The patient did not perform the activity before the current illness or injury 88 Not attempted due to Medical conditions or safety concerns Grooming (FIM): 6 Oral Hygiene (QC): 6 Bathing (FIM): 5 Shower/Bathe Self (QC): 5 Upper Body (FIM): 5 Upper Body Dressing (QC): 5 Lower Body Dressing (FIM): 5 Lower Body Dressing (QC): 5 On/Off Footwear (QC): 5 Shower Transfer(FIM): 5 Other Treatment Gait to therapy gym with FWW, no LOB noted. Arm bike x10 minutes to increase overall strength and activity tolerance needed for functional tasks. Pt completed task with steady pace and no rest breaks. Pt returned to room and stood at toilet to urinate with modified independence. Pt sitting in chair with needs met after session. OT Short Term Goals Short Term Goals Time Frame: Aug 11, 2017 Lower Body Dressing(FIM): 5 Toileting(FIM): 5 Toilet/Commode Transfer(FIM): 5 1=Demonstrate adherence to instructed precautions during ADL tasks. 2=Patient will verbalize/demonstrate understanding of assistive devices/ modifications for ADL. 3=Patient will improve strength/tolerance for activity to enable patient to perform ADL's. OT Senior Care Goals Heat Treat Puller Goals Time Frame: Aug 25, 2017 Eating (FIM): 6 Eating (QC): 6 Groomin Oral Hygiene (QC): 6 Bathing(FIM): 5 Shower/Bathe Self (QC): 5 Upper Body Dressing(FIM): 6 Upper Body Dressing (QC): 6 Lower Body Dressing(FIM): 6 Lower Body Dressing (QC): 6 On/Off Footwear (QC): 6 Toileting(FIM): 6 Toileting Hygiene (QC): 6 Toilet/Commode Transfer(FIM): 6 Toilet/Commode Transfer (QC): 6 Shower Transfer(FIM): 5 Memory(FIM): 3 Additional Goals: 2-Verbalize Understanding, 3-ImproveStrength/Dave 1=Demonstrate adherence to instructed precautions during ADL tasks. 2=Patient will verbalize/demonstrate understanding of assistive devices/ modifications for ADL. 3=Patient will improve strength/tolerance for activity to enable patient to perform ADL's. OT Education/Plan Problem List/Assessment Pt demonstrates decreased ADL functioning, mobility, activity tolerance, and safety awareness. Pt to benefit from skilled OT intervention for ADL training, transfers, strengthening, and home safety education to maximize level of function and allow safe discharge plan. Discharge Recommendations Plan/Recommendations: Continue POC Treatment Plan/Plan of Care Patient would benefit from OT for education, treatment and training to promote independence in ADL's, mobility, safety and/or upper extremity function for ADL' s. Plan of Care: ADL Retraining, Functional Mobility, Group Exercise/Act as Ind, UE Funct Exercise/Act, UE Neuromus Re-Ed/Coord Treatment Duration: Aug 25, 2017 Frequency: At least 5 of 7 days/Wk (IRF) Estimated Hrs Per Day: 1.5 hours per day Agreement: Yes Rehab Potential: Fair Time/GCodes Start Time: 09:15 Stop Time: 10:15 Total Time Billed (hr/min): 60 Billed Treatment Time 1 visit, ADLx3(45minutes), EX(15minutes) HARDY DYKES OT Aug 09, 2017 10:02
--- NOTE | 2017-08-09 10:52 | Speech Therapy Daily Note ---
Speech Daily Progress Note Subjective Date Seen by Provider: Aug 09, 2017 Time Seen by Provider: 08:20 The patient was seated upright in recliner upon entrance. The patient greeted the clinician appropriately and was agreeable to participation in cognitive therapy on this date. Objective - Safety Problem Solving: The patient was shown specific pictures which depicted safety concerns in a common home environment. The patient was asked to identify the safety concern and state an appropriate resolution. The patient displayed fair accuracy with this task, however, required moderate clinician verbal prompting for improvement. - Orientation: The patient is consistent oriented to month and day of week. The patient states the year is 1916 on two occasions throughout the session. The patient is unable to correct himself, however, when the accurate year is stated he reports, "oh yeah." Assessment Assessment Current Status: Good Progress Treatment Plan Continue Plan of Care Communication Comprehension: 4 Expression: 4 Social Cognition Social Interaction: 5 Problem Solvin Memory: 3 Speech Short Term Goals Short Term Goals Short Term Goals 1. The patient will complete structured word-finding exercises with 90% accuracy and mild clinician cueing. 2. The patient will follow simple, two step commands with 80% accuracy and mild clinician cueing. 3. The patient will display 80% accuracy with confrontational naming of pictures with mild clinician cueing. Time Frame-ST Days Speech Prison Goals Data Compiler Goals 1. The patient will improve cognitive linguistic skills for increased function and safety with ADL's. Time Frame: Two Weeks Memory: 3 Speech-Plan Treatment Plan Speech Therapy Treatment Plan: Continue Plan of Care Continue skilled speech pathology intervention to target functional expressive communication and safety problem solving. Treatment Duration: Aug 25, 2017 Frequency: Modified Program (IRF) (Five times per week.) Estimated Hrs Per Day: .5 hour per day Rehab Potential: Fair Safety Risks/Education Teaching Recipient: Patient Teaching Methods: Discussion Response to Teaching: Reinforcement Needed Education Topics Provided: Safety Problem Solving Time Speech Therapy Time In: 08:20 Speech Therapy Time Out: 08:50 Total Billed Time: 30 Billed Treatment Time [address] Aug 09, 2017 10:52
--- NOTE | 2017-08-09 12:24 | Occupational Ther Daily Note ---
OT Current Status-Daily Note Subjective Pt sitting in chair, agrees to treatment. No c/o pain Mental Status/Objective Functional [place] Measure 0=Not Assessed/NA 4=Minimal Assistance 1=Total Assistance 5=Supervision or Setup 2=Maximal Assistance 6=Modified [place] 3=Moderate Assistance 7=Complete [place] ADL-Treatment Functional [place] Measure 0=Not Assessed/NA 4=Minimal Assistance 1=Total Assistance 5=Supervision or Setup 2=Maximal Assistance 6=Modified [place] 3=Moderate Assistance 7=Complete IndependenceIRFPAI Quality Coding Scale 6 Independent with activity with or without an assistive device 5 Patient requires set up or clean up by helper. Patient completes activity by themselves 4 Supervision or touching assist (CGA). [place] provide cues , steadying assist 3 The helper provides less than half the effort to complete the activity 2 The helper provides more than half the effort to complete the activity 1 Dependent. The helper does all the effort to complete an activity 7 Patient refused to complete or attempt activity 9 The patient did not perform the activity before the current illness or injury 88 Not attempted due to Medical conditions or safety concerns Other Treatment Pt completed bilateral UE exercises to promote increased strength needed for ADLs and transfers. Pt performed shoulder flexion, abduction, biceps curls, and triceps extension exercises x20 reps with moderate resistance (red) theraband rest breaks between exercises. Pt sitting in chair with needs met after session. OT Short Term Goals Short Term Goals Time Frame: Aug 11, 2017 Lower Body Dressing(FIM): 5 Toileting(FIM): 5 Toilet/Commode Transfer(FIM): 5 1=Demonstrate adherence to instructed precautions during ADL tasks. 2=Patient will verbalize/demonstrate understanding of assistive devices/ modifications for ADL. 3=Patient will improve strength/tolerance for activity to enable patient to perform ADL's. OT Rough [place] Goals [place] Goals Time Frame: Aug 25, 2017 Eating (FIM): 6 Eating (QC): 6 Groomin Oral Hygiene (QC): 6 Bathing(FIM): 5 Shower/Bathe Self (QC): 5 Upper Body Dressing(FIM): 6 Upper Body Dressing (QC): 6 Lower Body Dressing(FIM): 6 Lower Body Dressing (QC): 6 On/Off Footwear (QC): 6 Toileting(FIM): 6 Toileting Hygiene (QC): 6 Toilet/Commode Transfer(FIM): 6 Toilet/Commode Transfer (QC): 6 Shower Transfer(FIM): 5 Memory(FIM): 3 Additional Goals: 2-Verbalize Understanding, 3-ImproveStrength/Dave 1=Demonstrate adherence to instructed precautions during ADL tasks. 2=Patient will verbalize/demonstrate understanding of assistive devices/ modifications for ADL. 3=Patient will improve strength/tolerance for activity to enable patient to perform ADL's. OT Education/Plan Problem List/Assessment Pt demonstrates decreased ADL functioning, mobility, activity tolerance, and safety awareness. Pt to benefit from skilled OT intervention for ADL training, transfers, strengthening, and home safety education to maximize level of function and allow safe discharge plan. Discharge Recommendations Plan/Recommendations: Continue POC Treatment Plan/Plan of Care Patient would benefit from OT for education, treatment and training to promote independence in ADL's, mobility, safety and/or upper extremity function for ADL' s. Plan of Care: ADL Retraining, Functional Mobility, Group Exercise/Act as Ind, UE Funct Exercise/Act, UE Neuromus Re-Ed/Coord Treatment Duration: Aug 25, 2017 Frequency: At least 5 of 7 days/Wk (IRF) Estimated Hrs Per Day: 1.5 hours per day Agreement: Yes Rehab Potential: Fair Time/GCodes Start Time: 11:45 Stop Time: 12:00 Total Time Billed (hr/min): 15 Billed Treatment Time 1 visit, EX(15minutes) HARDY DYKES OT Aug 09, 2017 12:24
--- NOTE | 2017-08-09 12:50 | Physical Therapy Daily Note ---
PT Daily Note-Current Subjective Agreeable to PT. Report he takes himself to/from the bathroom. Reports sometimes he uses his walker and sometimes he does not. Later reports, he plans to use a walker at home and agrees to use it for safety purposes. Pain Numeric Pain Scale: 0-No Pain Location: No Pain Reported Mental Status Patient Orientation: Person, Place, Time, Situation Transfers Functional [place] Measure 0=Not Assessed/NA 4=Minimal Assistance 1=Total Assistance 5=Supervision or Setup 2=Maximal Assistance 6=Modified [place] 3=Moderate Assistance 7=Complete IndependenceIRFPAI Quality Coding Scale 6 Independent with activity with or without an assistive device 5 Patient requires set up or clean up by helper. Patient completes activity by themselves 4 Supervision or touching assist (CGA). [place] provide cues , steadying assist 3 The helper provides less than half the effort to complete the activity 2 The helper provides more than half the effort to complete the activity 1 Dependent. The helper does all the effort to complete an activity 7 Patient refused to complete or attempt activity 9 The patient did not perform the activity before the current illness or injury 88 Not attempted due to Medical conditions or safety concerns Transfers (B, C, W/C) (FIM): 7 Supine to/from Sit: 7 Sit to/from Stand: 7 Pt is indep with all functional transfers. Gait Training Gait (FIM): 5 Distance (FIM): 3=150 ft Distance: 150 ft x 3 reps. Pt ambulated 150 ft x 1 without AD with forward flexed posture, wide JAMES and decreased step length with SBA; he then walked 150 ft x 2 with FWW with forward flexed posture with SBA.. He flexes forward due to spinal stenosis and pain associated with extension. Stair Training up/down 1 step with FWW with SBA. Balance Picking up an Object (QC): 5 Treatments Completed RAZA balance test and pt scored 34/56 which is a moderate fall risk. Recommend use of FWW for gait, pt agreed. Assessment Current Status: Excellent Progress Pt making excellent gains with mobility and safety. Recommend use of FWW for optimal safety with ambulation. PT Short Term Goals Short Term Goals Time Frame: Aug 11, 2017 Gait (FIM): 4 (met) Gait Distance Comment: 200' Gait Level of Assist: 4 Gait Assistive Device: FWW PT Residential Goals Residential Goals PT Soot Blower Goals Time Frame: Aug 25, 2017 Transfers (B,C,W/C) (FIM): 7 (mt) Sit to Lying (QC): 6 (met) Lying-Sitting on Side/Bed(QC): 6 (met) Sit to Stand (QC): 6 (met) Rollin (met) Roll Left to Right (QC): 6 (met) Chair/Pgi-hh-Ridsu Xfer(QC): 6 (met) Car Transfer (QC): 4 Gait (FIM): 6 Distance: 250' Walk 10 feet (QC): 6 Walk 10ft-Uneven Surface(QC): 6 Walk 50ft with 2 Turns (QC): 6 Walk 150 ft (QC): 6 Gait Level of Assist: 6 Gait Assistive Device: FWW Stairs (FIM): 5 # of Steps: 12 1 Step (curb) (QC): 4 4 Steps (QC): 4 12 Steps (QC): 4 Stairs Level Of Assist: 5 Picking up an Object (QC): 4 PT Plan Problem List Problem List: Activity Tolerance, Functional Strength, Safety, Balance, Gait Treatment/Plan Treatment Plan: Continue Plan of Care Treatment Plan: Bed Mobility, Education, Functional Activity Dave, Functional Strength, Group Therapy, Gait, Safety, Therapeutic Exercise, Transfers Treatment Duration: Aug 25, 2017 Frequency: At least 5 of 7 days/Wk (IRF) Estimated Hrs Per Day: 1.5 hours per day Patient and/or Family Agrees t: Yes Safety Risks/Education Patient Education: Safety Issues (use of FWW) Teaching Recipient: Patient Teaching Methods: Discussion Response to Teaching: Verbalize Understanding, Reinforcement Needed Time/GCodes Time In: 1013 Time Out: 1115 Total Billed Treatment Time: 62 Total Billed Treatment visit FA 30 NM 32 AUGUST AVILA PT Aug 09, 2017 12:49
--- NOTE | 2017-08-09 14:19 | Physical Therapy Daily Note ---
PT Daily Note-Current Subjective Agreeable to PT. Reports he took pain medication this morning but declines asking for any this afternoon. Pain Numeric Pain Scale: 4 Location: Right, Left Location Body Site: Knee Pain Description: Ache Comment: "arthritis" while on the NuStep Mental Status Patient Orientation: Person, Place, Time, Situation Transfers Functional [place] Measure 0=Not Assessed/NA 4=Minimal Assistance 1=Total Assistance 5=Supervision or Setup 2=Maximal Assistance 6=Modified [place] 3=Moderate Assistance 7=Complete IndependenceIRFPAI Quality Coding Scale 6 Independent with activity with or without an assistive device 5 Patient requires set up or clean up by helper. Patient completes activity by themselves 4 Supervision or touching assist (CGA). [place] provide cues , steadying assist 3 The helper provides less than half the effort to complete the activity 2 The helper provides more than half the effort to complete the activity 1 Dependent. The helper does all the effort to complete an activity 7 Patient refused to complete or attempt activity 9 The patient did not perform the activity before the current illness or injury 88 Not attempted due to Medical conditions or safety concerns Pt is indep with functional transfers. Gait Training Does the Patient Walk?: Yes Distance (FIM): 3=150 ft Distance: 150 ft x 2; 50 ft x 2 Gait Assistive Device: FWW Gait training with FWW with skilled cues for safety and to increase step length. Reviewed necessity of FWW with pt and his daughter, they both agreed. Exercises Standing: Hip Abduction, Hamstring curls, Heel/toe raises, Marching, Mini squats Standing Reps: 15 (to strengthen LE's for improved functional transfers and gait. ) NuStep Minutes: 5 (level 2; had to discontinue due to knee discomfort; used it for cardiovascular training and LE strength for transfer and gait progression. ) Assessment Current Status: Good Progress Pt is making functional progress and is nearing goal achievemetn. PT Short Term Goals Short Term Goals Time Frame: Aug 11, 2017 Gait (FIM): 4 (met) Gait Distance Comment: 200' Gait Level of Assist: 4 Gait Assistive Device: FWW PT Administrative Assistant Coordinator Goals Administrative Assistant Coordinator Goals PT Administrative Assistant Coordinator Goals Time Frame: Aug 25, 2017 Transfers (B,C,W/C) (FIM): 7 (mt) Sit to Lying (QC): 6 (met) Lying-Sitting on Side/Bed(QC): 6 (met) Sit to Stand (QC): 6 (met) Rollin (met) Roll Left to Right (QC): 6 (met) Chair/Spl-ua-Lxjve Xfer(QC): 6 (met) Car Transfer (QC): 4 Gait (FIM): 6 Distance: 250' Walk 10 feet (QC): 6 Walk 10ft-Uneven Surface(QC): 6 Walk 50ft with 2 Turns (QC): 6 Walk 150 ft (QC): 6 Gait Level of Assist: 6 Gait Assistive Device: FWW Stairs (FIM): 5 # of Steps: 12 1 Step (curb) (QC): 4 4 Steps (QC): 4 12 Steps (QC): 4 Stairs Level Of Assist: 5 Picking up an Object (QC): 4 PT Plan Problem List Problem List: Activity Tolerance, Functional Strength, Safety Treatment/Plan Treatment Plan: Continue Plan of Care Treatment Plan: Bed Mobility, Education, Functional Activity Dave, Functional Strength, Group Therapy, Gait, Safety, Therapeutic Exercise, Transfers Treatment Duration: Aug 25, 2017 Frequency: At least 5 of 7 days/Wk (IRF) Estimated Hrs Per Day: 1.5 hours per day Patient and/or Family Agrees t: Yes Safety Risks/Education Patient Education: Gait Training (need for FWW), Safety Issues Teaching Recipient: Patient, Family (daughter) Teaching Methods: Discussion Response to Teaching: Verbalize Understanding Discharge Recommendations Therapy D/C Recommendations: Physical Therapy Home Care Time/GCodes Time In: 1259 Time Out: 1330 Total Billed Treatment Time: 31 Total Billed Treatment visit GT 15 EX 16 AUGUST AVILA PT Aug 09, 2017 14:19
--- NOTE | 2017-08-09 17:13 | PM & R (SOAP) Progress Note ---
Subjective Time Seen by Provider: 17:00 Subjective/Events-last exam Patient was seen in his room this AM. Patient Modified Independent with extra time for transfers INR1.6-Lovenox continues Objective Exam Last Set of Vital Signs Vital Signs Date Time Temp Pulse Resp B/P (MAP) Pulse Ox O2 Delivery O2 Flow Rate FiO2 08/09/17 08:13 Room Air 08/09/17 07:57 98.4 08/09/17 05:43 61 18 126/69 94 Capillary Refill : Less Than 3 Seconds I&O Intake and Output 08/10/17 00:00 Intake Total 700 ml Balance 700 ml Intake Oral 700 ml # Voids 4 General: Alert, Cooperative, No Acute Distress HEENT: Atraumatic, PERRLA, EOMI, Mucous Memb Moist/[place], Other (aphasia and dysphagia) Neck: Supple, No JVD Lungs: Clear to Auscultation Heart: Regular Rate Abdomen: Normal Bowel Sounds, Soft, No Tenderness Extremities: No Edema Neuro: Other (as per above as well as mild rt sided neglect and mildly weak rt ankle dorsiflexors) Results Lab Laboratory Tests 08/07/17 05:12: Prothrombin Time 17.2H, INR Comment 1.4 08/08/17 05:23: Prothrombin Time 18.1H, INR Comment 1.5H 08/09/17 05:05: Prothrombin Time 19.3H, INR Comment 1.6H Assessment/Plan Assessment 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
[2017-08-09] MEDS: warFARin 5 MG (COUMADIN) TAB PO SCH (17:27)
[2017-08-09 18:29] VITALS: BP 126/67
[2017-08-09] MEDS: ENOXAPARIN 40 MG/0.4 ML (LOVENOX) SYR SC SCH (18:55)
[2017-08-09] MEDS: DONEPEZIL 5 MG (ARICEPT) TAB PO SCH (20:22)
[2017-08-09] MEDS: ATORVASTATIN 40 MG (LIPITOR) TABLET PO SCH (20:22)
[2017-08-10] MEDS: FERROUS SULF 325 MG (IRON) TAB PO SCH ×2 (05:59→17:25)
[2017-08-10] MEDS: KCL 10 MEQ TAB (MICRO K) PO SCH (05:59)
[2017-08-10] MEDS: PANTOPRAZOLE 40 MG (PROTONIX) TAB PO SCH ×2 (05:59→20:08)
[2017-08-10 06:17] LABS: INR 1.7 (0.8-1.4); PROTHROMBIN TIME PATIENT 20.3 SEC (12.2-14.7)
[2017-08-10 06:43] VITALS: BP 132/71
[2017-08-10] MEDS: FUROSEMIDE 40 MG (LASIX) TAB PO SCH (07:39)
[2017-08-10] MEDS: amLODIPine 5 MG (NORVASC) TAB PO SCH (07:39)
--- NOTE | 2017-08-10 08:31 | PM & R (SOAP) Progress Note ---
Subjective Time Seen by Provider: 08:15 Subjective/Events-last exam Patient was seen in his room this AM with ST ST notes patient on Mechanical soft diet with thin Liquids Patient Modified Independent for transfers Objective Exam Last Set of Vital Signs Vital Signs Date Time Temp Pulse Resp B/P (MAP) Pulse Ox O2 Delivery O2 Flow Rate FiO2 08/10/17 06:43 99.6 66 20 132/71 95 Room Air Capillary Refill : Less Than 3 Seconds I&O Intake and Output 08/11/17 00:00 Intake Total 600 ml Balance 600 ml Intake Oral 600 ml # Voids 4 General: Alert, Cooperative, No Acute Distress HEENT: Atraumatic, PERRLA, EOMI, Mucous Memb Moist/[place], Other (aphasia and dysphagia) Neck: Supple, No JVD Lungs: Clear to Auscultation Heart: Regular Rate Abdomen: Normal Bowel Sounds, Soft, No Tenderness Extremities: No Edema Neuro: Other (as per above as well as mild rt sided neglect and mildly weak rt ankle dorsiflexors) Results Lab Laboratory Tests 08/08/17 05:23: Prothrombin Time 18.1H, INR Comment 1.5H 08/09/17 05:05: Prothrombin Time 19.3H, INR Comment 1.6H 08/10/17 05:55: Prothrombin Time 20.3H, INR Comment 1.7H Assessment/Plan Assessment 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
--- NOTE | 2017-08-10 08:50 | Speech Therapy Daily Note ---
Speech Daily Progress Note Subjective Date Seen by Provider: Aug 10, 2017 Time Seen by Provider: 08:10 The patient was seated upright in chair upon entrance. The patient greeted the clinician upon entrance and was agreeable to participation in the cognitive treatment session. Objective Assessment of Language Related Functional Activities (MEGAN) was initiated on this date with the below results (functional tasks the patient will complete post discharge): - Telling Time: The patient was asked to tell time on an analog clock. The patient completed task with 80% accuracy with mild clinician verbal prompting. - Solving Daily Math Problems: The patient completed daily math problems on this date (money calculations, due dates, recipes). The patient completed the task with 70% accuracy and moderate clinician verbal cueing. Assessment Assessment Current Status: Good Progress Treatment Plan Continue Plan of Care Communication Comprehension: 4 Expression: 4 Social Cognition Social Interaction: 5 Problem Solvin Memory: 4 Speech Short Term Goals Short Term Goals Short Term Goals 1. The patient will complete structured word-finding exercises with 90% accuracy and mild clinician cueing. 2. The patient will follow simple, two step commands with 80% accuracy and mild clinician cueing. 3. The patient will display 80% accuracy with confrontational naming of pictures with mild clinician cueing. Time Frame-ST Days Speech Usp Goals Sail Finisher Machine Goals 1. The patient will improve cognitive linguistic skills for increased function and safety with ADL's. Time Frame: Two Weeks Memory: 3 Speech-Plan Treatment Plan Speech Therapy Treatment Plan: Continue Plan of Care Continue skilled speech pathology to target functional problem solving and expressive communication. Treatment Duration: Aug 25, 2017 Frequency: Modified Program (IRF) (Five times per week.) Estimated Hrs Per Day: .5 hour per day Rehab Potential: Fair Safety Risks/Education Teaching Recipient: Patient Teaching Methods: Discussion Response to Teaching: Verbalize Understanding Education Topics Provided: Orientation Strategies, Progression Towards Goals Time Speech Therapy Time In: 08:10 Speech Therapy Time Out: 08:40 Total Billed Time: 30 Billed Treatment Time 1KELSEY ELIZAB[facility] ST Aug 10, 2017 08:50
--- NOTE | 2017-08-10 08:51 | Progress Note (SOAP) ---
Subjective Time Seen by Provider: 08:50 Subjective/Events-last exam CVA. Dementia. Patient talking better. Patient improving Objective Exam Vital Signs Date Time Temp Pulse Resp B/P (MAP) Pulse Ox O2 Delivery O2 Flow Rate FiO2 08/10/17 06:43 99.6 66 20 132/71 95 Room Air 08/09/17 20:26 Room Air 08/09/17 18:29 98.6 60 16 126/67 96 Room Air Capillary Refill : Less Than 3 Seconds General Appearance: No Apparent Distress, WD/WN HEENT: Normal ENT Inspection Neck: Full Range of Motion, Normal Inspection Respiratory: No Accessory Muscle Use, No Respiratory Distress Cardiovascular: Regular Rate, Rhythm Gastrointestinal: non tender, soft Results Lab Laboratory Tests 08/10/17 05:55: Prothrombin Time 20.3H, INR Comment 1.7H Assessment/Plan Assessment/Plan Assess & Plan/Chief Complaint CVA. Dementia. Coronary artery Disease. Hyperlipidemia. Hypertension. . 08/05/17. CVA. Dementia. Coronary artery. Disease . Hypertension. Hyperlipidemia. Patient appears happy today.. . 08/09/17. Patient seen yesterday and doing better. . 08/10/17 area Patient speaking better. CVA. DEMENTIA> . Clinical Quality Measures DVT/VTE Risk/Contraindication: Risk Factor Score Per Nursin RFS Level Per Nursing on Admit: 3=High MAURICE FULLER DO Aug 10, 2017 08:51
--- NOTE | 2017-08-10 11:21 | Occupational Ther Daily Note ---
OT Current Status-Daily Note Subjective Pt sitting in chair, agrees to treatment. Pt has no c/o pain, but states he is tired secondary to not sleeping well last night. Mental Status/Objective Functional [place] Measure 0=Not Assessed/NA 4=Minimal Assistance 1=Total Assistance 5=Supervision or Setup 2=Maximal Assistance 6=Modified [place] 3=Moderate Assistance 7=Complete [place] ADL-Treatment Pt sit to stand with modified independence. Pt retrieved clothing from closet without assistance using FWW for balance. To restroom with FWW. Pt stood at toilet to urinate, able to manage clothing. [place] clothing without assistance. Transfer to walk in shower with modified independence using grab bars. Pt able to wash/dry all areas with modified independence and increased time. Don pullover shirt with modified independence. Pt donned underwear, pants, shoes and socks with modified independence. Grooming tasks completed standing at sink. Pt brushed teeth and combed hair with modified independence. Increased time for ADL tasks. Functional [place] Measure 0=Not Assessed/NA 4=Minimal Assistance 1=Total Assistance 5=Supervision or Setup 2=Maximal Assistance 6=Modified [place] 3=Moderate Assistance 7=Complete IndependenceIRFPAI Quality Coding Scale 6 Independent with activity with or without an assistive device 5 Patient requires set up or clean up by helper. Patient completes activity by themselves 4 Supervision or touching assist (CGA). [place] provide cues , steadying assist 3 The helper provides less than half the effort to complete the activity 2 The helper provides more than half the effort to complete the activity 1 Dependent. The helper does all the effort to complete an activity 7 Patient refused to complete or attempt activity 9 The patient did not perform the activity before the current illness or injury 88 Not attempted due to Medical conditions or safety concerns Grooming (FIM): 6 Oral Hygiene (QC): 6 Bathing (FIM): 6 Shower/Bathe Self (QC): 6 Upper Body (FIM): 6 Upper Body Dressing (QC): 6 Lower Body Dressing (FIM): 6 Lower Body Dressing (QC): 6 On/Off Footwear (QC): 6 Shower Transfer(FIM): 6 Other Treatment Gait to therapy gym with FWW, occasional cues for safe walker use. Arm bike x10 minutes to increase overall strength and activity tolerance needed for functional tasks. Pt performed task with moderate resistance and slow pace. No rest breaks needed. Pt performed fine motor task with nuts and bolts with 2# weights in place on bilateral UE to increase strength and coordination skills. Pt has mild difficulty secondary to decreased coordination, but is able to complete task without assistance with increased time. Pt returned to room, seated in chair with needs met after session. OT Short Term Goals Short Term Goals Time Frame: Aug 11, 2017 Lower Body Dressing(FIM): 5 Toileting(FIM): 5 Toilet/Commode Transfer(FIM): 5 1=Demonstrate adherence to instructed precautions during ADL tasks. 2=Patient will verbalize/demonstrate understanding of assistive devices/ modifications for ADL. 3=Patient will improve strength/tolerance for activity to enable patient to perform ADL's. OT Coal Unloader Goals Intermediate Goals Time Frame: Aug 25, 2017 Eating (FIM): 6 Eating (QC): 6 Groomin Oral Hygiene (QC): 6 Bathing(FIM): 5 Shower/Bathe Self (QC): 5 Upper Body Dressing(FIM): 6 Upper Body Dressing (QC): 6 Lower Body Dressing(FIM): 6 Lower Body Dressing (QC): 6 On/Off Footwear (QC): 6 Toileting(FIM): 6 Toileting Hygiene (QC): 6 Toilet/Commode Transfer(FIM): 6 Toilet/Commode Transfer (QC): 6 Shower Transfer(FIM): 5 Memory(FIM): 3 Additional Goals: 2-Verbalize Understanding, 3-ImproveStrength/Dave 1=Demonstrate adherence to instructed precautions during ADL tasks. 2=Patient will verbalize/demonstrate understanding of assistive devices/ modifications for ADL. 3=Patient will improve strength/tolerance for activity to enable patient to perform ADL's. OT Education/Plan Problem List/Assessment Pt demonstrates decreased ADL functioning, mobility, activity tolerance, and safety awareness. Pt to benefit from skilled OT intervention for ADL training, transfers, strengthening, and home safety education to maximize level of function and allow safe discharge plan. Discharge Recommendations Plan/Recommendations: Continue POC Treatment Plan/Plan of Care Patient would benefit from OT for education, treatment and training to promote independence in ADL's, mobility, safety and/or upper extremity function for ADL' s. Plan of Care: ADL Retraining, Functional Mobility, Group Exercise/Act as Ind, UE Funct Exercise/Act, UE Neuromus Re-Ed/Coord Treatment Duration: Aug 25, 2017 Frequency: At least 5 of 7 days/Wk (IRF) Estimated Hrs Per Day: 1.5 hours per day Agreement: Yes Rehab Potential: Fair Time/GCodes Start Time: 09:15 Stop Time: 10:30 Total Time Billed (hr/min): 75 Billed Treatment Time 1 visit, ADLx3(45minutes), EXx2(30minutes) HARDY DYKES OT Aug 10, 2017 11:21
--- NOTE | 2017-08-10 11:57 | Physical Therapy Daily Note ---
PT Daily Note-Current Subjective Pt sitting in recliner upon arrival. Pt is ad ulises to use restroom in room. Pt agrees to PT. Pain Location: No Pain Reported Mental Status Patient Orientation: Person, Place, Time, Situation Transfers Functional [place] Measure 0=Not Assessed/NA 4=Minimal Assistance 1=Total Assistance 5=Supervision or Setup 2=Maximal Assistance 6=Modified [place] 3=Moderate Assistance 7=Complete IndependenceIRFPAI Quality Coding Scale 6 Independent with activity with or without an assistive device 5 Patient requires set up or clean up by helper. Patient completes activity by themselves 4 Supervision or touching assist (CGA). [place] provide cues , steadying assist 3 The helper provides less than half the effort to complete the activity 2 The helper provides more than half the effort to complete the activity 1 Dependent. The helper does all the effort to complete an activity 7 Patient refused to complete or attempt activity 9 The patient did not perform the activity before the current illness or injury 88 Not attempted due to Medical conditions or safety concerns [place] Sit to/from Stand: 6 Sit to Stand (QC): 6 Weight Bearing Right Lower Extremity: Right Full Weight Bearing Left Lower Extremity: Left Full Weight Bearing Gait Training Does the Patient Walk?: Yes Distance (FIM): 3=150 ft Distance: 500' Walk 10 feet (QC): 5 Walk 50 ft with 2 Turns(QC): 5 Walk 150 ft (QC): 5 Gait Level of Assist: 5 Gait Persons Needed: 1 Gait Assistive Device: FWW Pt walks with slow but steady gait, no LOB. Pt walks with slight kyphotic posture because flexing hurts less than extension. Wheelchair Training Does the Pt Use a Wheelchair?: No Exercises Seated Therapy Exercises: Ankle pumps, Long arc quads, Hip flexion, Kicking activity Seated Reps: 20 (x2 reps) Treatments Pt transferred from recliner to standing using FWW at [facility]. Pt used restroom then ambulated in hallway using FWW at [facility]. Pt completed Seated Ex before ambulating again in hallway. Pt returned to room to use restroom again and rest in recliner at end of tx with all needs met. Assessment Current Status: Good Progress Pt is able to ambulate better and farther. PT Short Term Goals Short Term Goals Time Frame: Aug 11, 2017 Gait (FIM): 4 (met) Gait Distance Comment: 200' Gait Level of Assist: 4 Gait Assistive Device: FWW PT Correction Goals Meal Temperer Goals PT Correction Goals Time Frame: Aug 25, 2017 Transfers (B,C,W/C) (FIM): 7 (mt) Sit to Lying (QC): 6 (met) Lying-Sitting on Side/Bed(QC): 6 (met) Sit to Stand (QC): 6 (met) Rollin (met) Roll Left to Right (QC): 6 (met) Chair/Vfg-qh-Nxfux Xfer(QC): 6 (met) Car Transfer (QC): 4 Gait (FIM): 6 Distance: 250' Walk 10 feet (QC): 6 Walk 10ft-Uneven Surface(QC): 6 Walk 50ft with 2 Turns (QC): 6 Walk 150 ft (QC): 6 Gait Level of Assist: 6 Gait Assistive Device: FWW Stairs (FIM): 5 # of Steps: 12 1 Step (curb) (QC): 4 4 Steps (QC): 4 12 Steps (QC): 4 Stairs Level Of Assist: 5 Picking up an Object (QC): 4 PT Plan Problem List Problem List: Activity Tolerance, Gait Treatment/Plan Treatment Plan: Continue Plan of Care Treatment Plan: Bed Mobility, Education, Functional Activity Dave, Functional Strength, Group Therapy, Gait, Safety, Therapeutic Exercise, Transfers Treatment Duration: Aug 25, 2017 Frequency: At least 5 of 7 days/Wk (IRF) Estimated Hrs Per Day: 1.5 hours per day Patient and/or Family Agrees t: Yes Safety Risks/Education Patient Education: Gait Training, Transfer Techniques, Correct Positioning, Safety Issues Teaching Recipient: Patient Teaching Methods: Discussion Response to Teaching: Verbalize Understanding Time/GCodes Time In: 1100 Time Out: 1200 Total Billed Treatment Time: 60 Total Billed Treatment visit, EX x2 (30m) & GT x2 (30m) GRACIE GRACE AUDIT OFFICER Aug 10, 2017 11:57
--- NOTE | 2017-08-10 15:06 | Physical Therapy Daily Note ---
PT Daily Note-Current Subjective Pt sitting in recliner upon arrival. Pt agrees to PT. Pain Location: No Pain Reported Mental Status Patient Orientation: Person, Place, Time, Situation Transfers Functional [place] Measure 0=Not Assessed/NA 4=Minimal Assistance 1=Total Assistance 5=Supervision or Setup 2=Maximal Assistance 6=Modified [place] 3=Moderate Assistance 7=Complete IndependenceIRFPAI Quality Coding Scale 6 Independent with activity with or without an assistive device 5 Patient requires set up or clean up by helper. Patient completes activity by themselves 4 Supervision or touching assist (CGA). [place] provide cues , steadying assist 3 The helper provides less than half the effort to complete the activity 2 The helper provides more than half the effort to complete the activity 1 Dependent. The helper does all the effort to complete an activity 7 Patient refused to complete or attempt activity 9 The patient did not perform the activity before the current illness or injury 88 Not attempted due to Medical conditions or safety concerns Scootin Sit to/from Stand: 6 Sit to Stand (QC): 6 Weight Bearing Right Lower Extremity: Right Full Weight Bearing Left Lower Extremity: Left Full Weight Bearing Gait Training Does the Patient Walk?: Yes Distance (FIM): 3=150 ft Distance: 250' Walk 10 feet (QC): 5 Walk 50 ft with 2 Turns(QC): 5 Walk 150 ft (QC): 5 Gait Level of Assist: 5 Gait Persons Needed: 1 Gait Assistive Device: FWW Pt walks with slow but steady gracie and kyphotic posture. Treatments Pt transferred from recliner to standing using FWW at [facility]-Mod I. Pt ambulates using FWW at [facility]. Pt takes a couple of brief rest breaks during ambulation. Pt rests in recliner at end of tx with all needs met. Assessment Current Status: Good Progress Pt continues to make improvements with independence and safety of walking. PT Short Term Goals Short Term Goals Time Frame: Aug 11, 2017 Gait (FIM): 4 (met) Gait Distance Comment: 200' Gait Level of Assist: 4 Gait Assistive Device: FWW PT Bottler Goals Bottler Goals PT Bottler Goals Time Frame: Aug 25, 2017 Transfers (B,C,W/C) (FIM): 7 (mt) Sit to Lying (QC): 6 (met) Lying-Sitting on Side/Bed(QC): 6 (met) Sit to Stand (QC): 6 (met) Rollin (met) Roll Left to Right (QC): 6 (met) Chair/Ccn-zl-Plosq Xfer(QC): 6 (met) Car Transfer (QC): 4 Gait (FIM): 6 Distance: 250' Walk 10 feet (QC): 6 Walk 10ft-Uneven Surface(QC): 6 Walk 50ft with 2 Turns (QC): 6 Walk 150 ft (QC): 6 Gait Level of Assist: 6 Gait Assistive Device: FWW Stairs (FIM): 5 # of Steps: 12 1 Step (curb) (QC): 4 4 Steps (QC): 4 12 Steps (QC): 4 Stairs Level Of Assist: 5 Picking up an Object (QC): 4 PT Plan Problem List Problem List: Activity Tolerance, Gait Treatment/Plan Treatment Plan: Continue Plan of Care Treatment Plan: Bed Mobility, Education, Functional Activity Dave, Functional Strength, Group Therapy, Gait, Safety, Therapeutic Exercise, Transfers Treatment Duration: Aug 25, 2017 Frequency: At least 5 of 7 days/Wk (IRF) Estimated Hrs Per Day: 1.5 hours per day Patient and/or Family Agrees t: Yes Safety Risks/Education Patient Education: Gait Training, Transfer Techniques, Correct Positioning, Safety Issues Teaching Recipient: Patient Teaching Methods: Discussion Response to Teaching: Verbalize Understanding Time/GCodes Time In: 1300 Time Out: 1330 Total Billed Treatment Time: 30 Total Billed Treatment visit, GT x2 (30m) GRACIE GRACE BENCH ASSEMBLER BATTERY Aug 10, 2017 15:06
[2017-08-10] MEDS: warFARin 5 MG (COUMADIN) TAB PO SCH (17:25)
[2017-08-10] MEDS: ENOXAPARIN 40 MG/0.4 ML (LOVENOX) SYR SC SCH (17:27)
[2017-08-10 18:56] VITALS: BP 134/69
[2017-08-10] MEDS: ATORVASTATIN 40 MG (LIPITOR) TABLET PO SCH (20:08)
[2017-08-10] MEDS: DONEPEZIL 5 MG (ARICEPT) TAB PO SCH (20:08)
[2017-08-11 05:02] VITALS: BP_SYST 111; BP_SYST 128; BP_DIAS 56; BP_DIAS 70
[2017-08-11] MEDS: FERROUS SULF 325 MG (IRON) TAB PO SCH ×2 (06:21→17:45)
[2017-08-11] MEDS: KCL 10 MEQ TAB (MICRO K) PO SCH (06:21)
[2017-08-11] MEDS: PANTOPRAZOLE 40 MG (PROTONIX) TAB PO SCH ×2 (06:21→20:46)
[2017-08-11 06:43] LABS: INR 1.8 (0.8-1.4); PROTHROMBIN TIME PATIENT 21.3 SEC (12.2-14.7)
[2017-08-11] MEDS: FUROSEMIDE 40 MG (LASIX) TAB PO SCH (08:15)
[2017-08-11] MEDS: amLODIPine 5 MG (NORVASC) TAB PO SCH (08:15)
--- NOTE | 2017-08-11 08:45 | Progress Note (SOAP) ---
Subjective Time Seen by Provider: 08:43 Subjective/Events-last exam CVA. Patient can eat what he wants now.. Patient improving Objective Exam Vital Signs Date Time Temp Pulse Resp B/P (MAP) Pulse Ox O2 Delivery O2 Flow Rate FiO2 08/11/17 05:02 99.2 65 18 128/56 92 Room Air 08/10/17 20:47 Room Air 08/10/17 18:56 98.5 59 16 134/69 97 Room Air 08/10/17 08:43 Room Air Capillary Refill : Less Than 3 Seconds General Appearance: No Apparent Distress, WD/WN Results Lab Laboratory Tests 08/11/17 05:15: Prothrombin Time 21.3H, INR Comment 1.8H Assessment/Plan Assessment/Plan Assess & Plan/Chief Complaint CVA. Dementia. Coronary artery Disease. Hyperlipidemia. Hypertension. . 08/05/17. CVA. Dementia. Coronary artery. Disease . Hypertension. Hyperlipidemia. Patient appears happy today.. . 08/09/17. Patient seen yesterday and doing better. . 08/10/17 area Patient speaking better. CVA. DEMENTIA>. . 08/11/17. Patient can eat what he wants now.Patient happy. Patient ready to go home area CVA. Dementia . Clinical Quality Measures DVT/VTE Risk/Contraindication: Risk Factor Score Per Nursin RFS Level Per Nursing on Admit: 3=High MAURICE FULLER DO Aug 11, 2017 08:44
--- NOTE | 2017-08-11 09:13 | Speech Therapy Daily Note ---
Speech Daily Progress Note Subjective Date Seen by Provider: Aug 11, 2017 Time Seen by Provider: 08:15 The patient was seated upright in recliner upon entrance. The patient greeted the clinician appropriately and was agreeable to participation in the dysphagia treatment session. Objective Dysphagia Re-Assessment: The patient's swallowing function was re-assessed with thin liquids (via cup sip and straw), medications (whole, not crushed), and solid consistencies. No signs/symptoms of aspiration were displayed with multiple boluses of thin liquid, solid, or medication. The patient's vocal quality remained clear throughout the evaluation. No right pocketing was visualized throughout the evaluation. At this time, the clinician recommends a regular consistency diet with thin liquids, as tolerated. The patient was encouraged to check the right, inferior buccal cavity for pocketing and remove the residual material with a lingual sweep or thin liquid swish (demonstrated safely throughout today's session). Dysphagia Exercises: The patient displayed high accuracy with dysphagia exercises on this date. Direct modeling was provided for the patient's initial example but the patient was able to complete exercises independently following. Five repetitions of each exercise was performed. Assessment Assessment Current Status: Good Progress Treatment Plan Continue Plan of Care Communication Comprehension: 4 Expression: 5 Social Cognition Social Interaction: 5 Problem Solvin Memory: 4 Speech Short Term Goals Short Term Goals Short Term Goals 1. The patient will complete structured word-finding exercises with 90% accuracy and mild clinician cueing. PROGRESSING 2. The patient will follow simple, two step commands with 80% accuracy and mild clinician cueing. MET (simple, only) 3. The patient will display 80% accuracy with confrontational naming of pictures with mild clinician cueing. MET Time Frame-ST Days Speech Metal Bed Assembler Goals Snf Goals 1. The patient will improve cognitive linguistic skills for increased function and safety with ADL's. Time Frame: Two Weeks Comprehension: 4 (MET) Expression: 4 (MET) Social Interaction: 5 (MET) Problem Solvin (MET) Memory: 3 (MET) Speech-Plan Treatment Plan Speech Therapy Treatment Plan: Discontinue ST, Goals Met Speech pathology will discharge patient on this date. The patient has met initial goals and skilled services are no longer warranted. Treatment Duration: Aug 25, 2017 Frequency: Modified Program (IRF) (Five times per week.) Estimated Hrs Per Day: .5 hour per day Rehab Potential: Fair Safety Risks/Education Teaching Recipient: Patient Teaching Methods: Discussion Response to Teaching: Verbalize Understanding Time Speech Therapy Time In: 08:15 Speech Therapy Time Out: 08:45 Total Billed Time: 30 Billed Treatment Time 1, PEPE ANAYA Aug 11, 2017 09:13
--- NOTE | 2017-08-11 09:18 | Therapy Team Discharge Summary ---
Therapy Discharge Summary Discharge Recommendations Date of Discharge Therapy D/C Recommendations: Physical Therapy Home Care Occupational Therapy Decreased Activ Tolerance, Decreased Safety Aware, Decreased UE Strength, Dependent Transfers, Impaired I ADL's, Impaired Self-Care Skills Speech-Language Pathology The patient was admitted to [facility] following a CVA. Upon admission, the patient demonstrated moderate word-finding difficulty, problem solving impairments, right sided labial weakness, and mild oropharyngeal dysphagia. Skilled speech pathology services focused on swallowing strategies, oropharyngeal strengthening, word-finding strategies, and functional problem solving. The patient demonstrated great improvement in swallowing and language goals, reaching all goals set initially by this clinician. At this time, the patient will be discharged from skilled speech pathology services. No additional skilled speech services are recommended post discharge. PT Dramatic Reader Goals Chcf Goals PT Dramatic Reader Goals Time Frame: Aug 25, 2017 Transfers (B,C,W/C) (FIM): 7 (mt) Roll Left to Right (QC): 6 (met) Sit to Lying (QC): 6 (met) Lying-Sitting on Side/Bed(QC): 6 (met) Sit to Stand (QC): 6 (met) Chair/Ipu-fn-Sztcb Xfer(QC): 6 (met) Car Transfer (QC): 4 Gait (FIM): 6 Distance: 250' Walk 10 feet (QC): 6 Walk 10ft-Uneven Surface(QC): 6 Walk 50ft with 2 Turns (QC): 6 Walk 150 ft (QC): 6 Gait Level of Assist: 6 Gait Assistive Device: FWW Stairs (FIM): 5 # of Steps: 12 1 Step (curb) (QC): 4 4 Steps (QC): 4 12 Steps (QC): 4 Stairs Level Of Assist: 5 Picking up an Object (QC): 4 OT Chcf Goals Dramatic Reader Goals Time Frame: Aug 25, 2017 Eating (FIM): 6 Eating (QC): 6 Oral Hygiene (QC): 6 Grooming(FIM): 6 Bathing(FIM): 5 Shower/Bathe Self (QC): 5 Upper Body Dressing(FIM): 6 Upper Body Dressing (QC): 6 Lower Body Dressing(FIM): 6 Lower Body Dressing (QC): 6 On/Off Footwear (QC): 6 Toileting(FIM): 6 Toileting Hygiene (QC): 6 Toilet/Commode Transfer(FIM): 6 Toilet/Commode Transfer (QC): 6 Shower Transfer(FIM): 5 Comprehension(FIM): 4 (MET) Expression (FIM): 4 (MET) Social Interaction(FIM): 5 (MET) Problem Solving(FIM): 3 (MET) Memory(FIM): 3 (MET) Additional Goals: 2-Verbalize Understanding, 3-ImproveStrength/Dave 1=Demonstrate adherence to instructed precautions during ADL tasks. 2=Patient will verbalize/demonstrate understanding of assistive devices/ modifications for ADL. 3=Patient will improve strength/tolerance for activity to enable patient to perform ADL's. Speech Chcf Goals Dramatic Reader Goals 1. The patient will improve cognitive linguistic skills for increased function and safety with ADL's. Time Frame: Two Weeks Comprehension: 4 (MET) Expression: 4 (MET) Social Interaction: 5 (MET) Problem Solvin (MET) Memory: 3 (MET) PEPE WALSH Aug 11, 2017 09:18
--- NOTE | 2017-08-11 11:31 | Physical Therapy Daily Note ---
PT Daily Note-Current Subjective Pt sitting in recliner upon arrival. Pt agreed to PT. Pt is wanting to discharge today so FIMed pt in case of discharge in the next couple of days. Pain Location: No Pain Reported Mental Status Patient Orientation: Person, Place, Time, Situation Transfers Functional [place] Measure 0=Not Assessed/NA 4=Minimal Assistance 1=Total Assistance 5=Supervision or Setup 2=Maximal Assistance 6=Modified [place] 3=Moderate Assistance 7=Complete IndependenceIRFPAI Quality Coding Scale 6 Independent with activity with or without an assistive device 5 Patient requires set up or clean up by helper. Patient completes activity by themselves 4 Supervision or touching assist (CGA). [place] provide cues , steadying assist 3 The helper provides less than half the effort to complete the activity 2 The helper provides more than half the effort to complete the activity 1 Dependent. The helper does all the effort to complete an activity 7 Patient refused to complete or attempt activity 9 The patient did not perform the activity before the current illness or injury 88 Not attempted due to Medical conditions or safety concerns Transfers (B, C, W/C) (FIM): 6 Scootin Rollin Roll Left to Right (QC): 6 Supine to/from Sit: 6 Sit to/from Stand: 6 Sit to Lying (QC): 6 Sit to Stand (QC): 6 Chair/Hvw-ge-Lrndq Xfer(QC): 6 Bed to/from Chair: 6 Weight Bearing Right Lower Extremity: Right Full Weight Bearing Left Lower Extremity: Left Full Weight Bearing Gait Training Does the Patient Walk?: Yes Distance (FIM): 3=150 ft Distance: 300' Walk 10 feet (QC): 6 Walk 50 ft with 2 Turns(QC): 6 Walk 150 ft (QC): 6 Walking 10ft/uneven surface-QC: 6 Gait Level of Assist: 6 Gait Persons Needed: 1 Gait Assistive Device: FWW Pt has normalized gait and is steady, no LOB. Wheelchair Training Does the Pt Use a Wheelchair?: No Stair Training Stair Training: Handrails/: 2 handrails Stairs (FIM): 4 #of Steps: 8 1 Step (curb) (QC): 5 4 Steps (QC): 5 12 Steps (QC): 88 Stairs: Pattern: Step to Level of Assist: 5 Balance Picking up an Object (QC): 5 Treatments Pt transfers from recliner to standing using FWW at Mod I and uses restroom. Pt ambulates in hallway using FWW at Mod I. Pt completes 2 sets of 4 stairs followed by ambulating over varying surface of at least 10' and picking up object off floor (pt receives VC to stay w/in FWW while picking object up). Pt completes Bed mobility and transfers at Mod I. Pt returns to recliner at end of tx with all needs met. Assessment Current Status: Good Progress Pt is safe and Mod I with all transfers and ambulation. PT Short Term Goals Short Term Goals Time Frame: Aug 11, 2017 Gait (FIM): 4 (met) Gait Distance Comment: 200' Gait Level of Assist: 4 Gait Assistive Device: FWW PT Lead Solutions Architect Goals Usp Goals PT Usp Goals Time Frame: Aug 25, 2017 Transfers (B,C,W/C) (FIM): 7 (mt) Sit to Lying (QC): 6 (met) Lying-Sitting on Side/Bed(QC): 6 (met) Sit to Stand (QC): 6 (met) Rollin (met) Roll Left to Right (QC): 6 (met) Chair/Jau-pq-Cnuku Xfer(QC): 6 (met) Car Transfer (QC): 4 Gait (FIM): 6 Distance: 250' Walk 10 feet (QC): 6 Walk 10ft-Uneven Surface(QC): 6 Walk 50ft with 2 Turns (QC): 6 Walk 150 ft (QC): 6 Gait Level of Assist: 6 Gait Assistive Device: FWW Stairs (FIM): 5 # of Steps: 12 1 Step (curb) (QC): 4 4 Steps (QC): 4 12 Steps (QC): 4 Stairs Level Of Assist: 5 Picking up an Object (QC): 4 PT Plan Problem List Problem List: Activity Tolerance, Safety Treatment/Plan Treatment Plan: Continue Plan of Care Treatment Plan: Bed Mobility, Education, Functional Activity Dave, Functional Strength, Group Therapy, Gait, Safety, Therapeutic Exercise, Transfers Treatment Duration: Aug 25, 2017 Frequency: At least 5 of 7 days/Wk (IRF) Estimated Hrs Per Day: 1.5 hours per day Patient and/or Family Agrees t: Yes Safety Risks/Education Patient Education: Gait Training, Transfer Techniques, Correct Positioning, Safety Issues Teaching Recipient: Patient Teaching Methods: Discussion Response to Teaching: Verbalize Understanding Time/GCodes Time In: 1030 Time Out: 1115 Total Billed Treatment Time: 45 Total Billed Treatment visit, GT (15m) & FA x2 (30m) GRACIE GRACE RN INTERNSHIP Aug 11, 2017 11:31
--- NOTE | 2017-08-11 13:40 | Occupational Ther Daily Note ---
OT Current Status-Daily Note Subjective Pt agreeable to treatment this am. No c/o pain. Pt stating he wants to discharge today. Mental Status/Objective Functional [place] Measure 0=Not Assessed/NA 4=Minimal Assistance 1=Total Assistance 5=Supervision or Setup 2=Maximal Assistance 6=Modified [place] 3=Moderate Assistance 7=Complete [place] ADL-Treatment Pt in restroom when therapist arrives. Pt completing toileting with modified independence. Sit to stand from toilet with modified independence. Pt doffed clothing without assistance. Transfer to walk in shower with modified independence using grab bar. Pt able to wash/dry all areas with modified independence.Don pullover shirt with modified independence. Pt doffed underwear , pants, socks, and shoes with modified independence and increased time. Pt combed hair with modified independence while standing at sink. Pt states he has already completed oral care this morning without assistance. Functional [place] Measure 0=Not Assessed/NA 4=Minimal Assistance 1=Total Assistance 5=Supervision or Setup 2=Maximal Assistance 6=Modified [place] 3=Moderate Assistance 7=Complete IndependenceIRFPAI Quality Coding Scale 6 Independent with activity with or without an assistive device 5 Patient requires set up or clean up by helper. Patient completes activity by themselves 4 Supervision or touching assist (CGA). [place] provide cues , steadying assist 3 The helper provides less than half the effort to complete the activity 2 The helper provides more than half the effort to complete the activity 1 Dependent. The helper does all the effort to complete an activity 7 Patient refused to complete or attempt activity 9 The patient did not perform the activity before the current illness or injury 88 Not attempted due to Medical conditions or safety concerns Eating (FIM): 6 (by report) Eating (QC): 6 Grooming (FIM): 6 Oral Hygiene (QC): 6 Bathing (FIM): 6 Shower/Bathe Self (QC): 6 Upper Body (FIM): 6 Upper Body Dressing (QC): 6 Lower Body Dressing (FIM): 6 Lower Body Dressing (QC): 6 On/Off Footwear (QC): 6 Toileting (FIM): 6 Toileting Hygiene (QC): 6 Toilet/Commode Transfer (FIM): 6 Toilet Transfer (QC): 6 Shower Transfer(FIM): 6 Other Treatment Gait to therapy gym with FWW, no LOB noted. Arm bike [id number] to increase overall strength and activity tolerance. Pt completed task with moderate resistance and steady pace. No rest breaks needed. Pt completed tabletop peg activity with bilateral UE with 2# weights in place to increase strength and coordination skills. Graded clothespin activity with bilateral hands to increase echo vascular tech/pinch strength. Pt has mild difficulty with task using left hand secondary to tremors. Pt returned to room, sitting in chair with needs met after session. OT Short Term Goals Short Term Goals Time Frame: Aug 11, 2017 Lower Body Dressing(FIM): 5 Toileting(FIM): 5 Toilet/Commode Transfer(FIM): 5 1=Demonstrate adherence to instructed precautions during ADL tasks. 2=Patient will verbalize/demonstrate understanding of assistive devices/ modifications for ADL. 3=Patient will improve strength/tolerance for activity to enable patient to perform ADL's. OT Fci Goals Global Coordinator Goals Time Frame: Aug 25, 2017 Eating (FIM): 6 (met 08/11/17) Eating (QC): 6 (6-MET) Groomin (met 08/11/17) Oral Hygiene (QC): 6 (6-MET) Bathing(FIM): 5 (exceeded 08/11/17) Shower/Bathe Self (QC): 5 (6-exceeded) Upper Body Dressing(FIM): 6 (met 08/11/17) Upper Body Dressing (QC): 6 (6-MET) Lower Body Dressing(FIM): 6 (met 08/11/17) Lower Body Dressing (QC): 6 (6-MET) On/Off Footwear (QC): 6 (6-MET) Toileting(FIM): 6 (met 08/11/17) Toileting Hygiene (QC): 6 (6-MET) Toilet/Commode Transfer(FIM): 6 (met 08/11/17) Toilet/Commode Transfer (QC): 6 (6-MET) Shower Transfer(FIM): 5 (exceeded 08/11/17) Comprehension(FIM): 4 (MET) Expression (FIM): 4 (MET) Social Interaction(FIM): 5 (MET) Problem Solving(FIM): 3 (MET) Memory(FIM): 3 (MET) Additional Goals: 2-Verbalize Understanding, 3-ImproveStrength/Dave 1=Demonstrate adherence to instructed precautions during ADL tasks. 2=Patient will verbalize/demonstrate understanding of assistive devices/ modifications for ADL. 3=Patient will improve strength/tolerance for activity to enable patient to perform ADL's. OT Education/Plan Problem List/Assessment Pt demonstrates decreased ADL functioning, mobility, activity tolerance, and safety awareness. Pt to benefit from skilled OT intervention for ADL training, transfers, strengthening, and home safety education to maximize level of function and allow safe discharge plan. Discharge Recommendations Plan/Recommendations: Continue POC Treatment Plan/Plan of Care Patient would benefit from OT for education, treatment and training to promote independence in ADL's, mobility, safety and/or upper extremity function for ADL' s. Plan of Care: ADL Retraining, Functional Mobility, Group Exercise/Act as Ind, UE Funct Exercise/Act, UE Neuromus Re-Ed/Coord Treatment Duration: Aug 25, 2017 Frequency: At least 5 of 7 days/Wk (IRF) Estimated Hrs Per Day: 1.5 hours per day Agreement: Yes Rehab Potential: Fair Time/GCodes Start Time: 11:15 Stop Time: 12:15 Total Time Billed (hr/min): 60 Billed Treatment Time 1 visit, ADLx2(35minutes), EXx2(25minutes) HARDY DYKES OT Aug 11, 2017 13:40
--- NOTE | 2017-08-11 15:38 | Therapy Group Daily Note ---
Therapy Daily Group Note Patient Education Topic Fall Prevention Exercises LE Seated Exercise, UE Exercise Other/Notes Pt was an active participant in OT/PT group. He introduced himself by sharing a story about a personal fall. He contributed to education/discussion about fall risks and ways to prevent falls. At the end of the group, he was able to identify steps he will take to be safer from falls when he goes home. He also did seated UE and LE exercises to strengthen arms and legs for decreasing risks of falling. He walked back to his room at Mod I using FWW and was left up in recliner, chair alarm on, all needs met. Start Time: 13:00 Stop Time: 14:20 Total Billed Treatment Time: 80 Total Billed Treatment 1, GRP GRACIE GRACE LEAN SENSEI Aug 11, 2017 15:38
[2017-08-11] MEDS: ENOXAPARIN 40 MG/0.4 ML (LOVENOX) SYR SC SCH (17:45)
[2017-08-11] MEDS: warFARin 5 MG (COUMADIN) TAB PO SCH (17:45)
[2017-08-11 18:36] VITALS: BP 143/71
[2017-08-11] MEDS: DONEPEZIL 5 MG (ARICEPT) TAB PO SCH (20:45)
[2017-08-11] MEDS: ATORVASTATIN 40 MG (LIPITOR) TABLET PO SCH (20:45)
[2017-08-12 04:46] VITALS: BP 120/70
[2017-08-12 05:34] LABS: INR 1.8 (0.8-1.4); PROTHROMBIN TIME PATIENT 21.1 SEC (12.2-14.7)
[2017-08-12] MEDS: FERROUS SULF 325 MG (IRON) TAB PO SCH ×2 (06:00→18:15)
[2017-08-12] MEDS: KCL 10 MEQ TAB (MICRO K) PO SCH (06:00)
[2017-08-12] MEDS: PANTOPRAZOLE 40 MG (PROTONIX) TAB PO SCH ×2 (06:00→20:26)
[2017-08-12] MEDS: amLODIPine 5 MG (NORVASC) TAB PO SCH (08:36)
[2017-08-12] MEDS: FUROSEMIDE 40 MG (LASIX) TAB PO SCH (08:36)
[2017-08-12] MEDS: DICLOFENAC 1% GEL 100 GM (VOLTAREN) TUBE TOP PRN (08:42)
--- NOTE | 2017-08-12 08:48 | Progress Note (SOAP) ---
Subjective Time Seen by Provider: 08:30 Subjective/Events-last exam CVA. Dementia. Patient to go home tomorrow. Patient excited about this Objective Exam Vital Signs Date Time Temp Pulse Resp B/P (MAP) Pulse Ox O2 Delivery O2 Flow Rate FiO2 08/12/17 08:30 99.1 08/12/17 04:46 99.7 68 18 120/70 97 Room Air 08/11/17 21:16 Room Air 08/11/17 18:36 98.3 61 18 143/71 97 Room Air 08/11/17 09:12 Room Air Capillary Refill : Less Than 3 Seconds General Appearance: No Apparent Distress, WD/WN HEENT: Normal ENT Inspection Results Lab Laboratory Tests 08/12/17 05:10: Prothrombin Time 21.1H, INR Comment 1.8H Assessment/Plan Assessment/Plan Assess & Plan/Chief Complaint CVA. Dementia. Coronary artery Disease. Hyperlipidemia. Hypertension. . 08/05/17. CVA. Dementia. Coronary artery. Disease . Hypertension. Hyperlipidemia. Patient appears happy today.. . 08/09/17. Patient seen yesterday and doing better. . 08/10/17 area Patient speaking better. CVA. DEMENTIA>. . 08/11/17. Patient can eat what he wants now.Patient happy. Patient ready to go home area CVA. Dementiaarea . 08/12/17. CVA. Dementia. Patient be discharged tomorrow. Patient excited . Clinical Quality Measures DVT/VTE Risk/Contraindication: Risk Factor Score Per Nursin RFS Level Per Nursing on Admit: 3=High MAURICE FULLER DO Aug 12, 2017 08:48
--- NOTE | 2017-08-12 12:14 | Physical Therapy Daily Note ---
PT Daily Note-Current Subjective Pt sitting in recliner upon arrival. Pt agrees to PT. Pt to discharge tomorrow. Pain Location: No Pain Reported Mental Status Patient Orientation: Person, Place, Time, Situation Transfers Functional [place] Measure 0=Not Assessed/NA 4=Minimal Assistance 1=Total Assistance 5=Supervision or Setup 2=Maximal Assistance 6=Modified [place] 3=Moderate Assistance 7=Complete IndependenceIRFPAI Quality Coding Scale 6 Independent with activity with or without an assistive device 5 Patient requires set up or clean up by helper. Patient completes activity by themselves 4 Supervision or touching assist (CGA). [place] provide cues , steadying assist 3 The helper provides less than half the effort to complete the activity 2 The helper provides more than half the effort to complete the activity 1 Dependent. The helper does all the effort to complete an activity 7 Patient refused to complete or attempt activity 9 The patient did not perform the activity before the current illness or injury 88 Not attempted due to Medical conditions or safety concerns Transfers (B, C, W/C) (FIM): 6 Scootin Rollin Roll Left to Right (QC): 6 Supine to/from Sit: 6 Sit to/from Stand: 6 Sit to Lying (QC): 6 Sit to Stand (QC): 6 Chair/Tel-jq-Zlyom Xfer(QC): 6 Bed to/from Chair: 6 Car Transfer (QC): 6 Weight Bearing Right Lower Extremity: Right Full Weight Bearing Left Lower Extremity: Left Full Weight Bearing Gait Training Does the Patient Walk?: Yes Distance (FIM): 3=150 ft Distance: 350' Walk 10 feet (QC): 6 Walk 50 ft with 2 Turns(QC): 6 Walk 150 ft (QC): 6 Gait Level of Assist: 6 Gait Persons Needed: 1 Gait Assistive Device: FWW Pt walks with normalize gait, no LOB. Wheelchair Training Does the Pt Use a Wheelchair?: No Exercises Seated Therapy Exercises: Ankle pumps, Long arc quads, Hip flexion, Kicking activity Seated Reps: 15 Treatments Pt and PT discuss getting FWW before pt leaves tomorrow and getting HH set up ( SW will be back to discuss). Pt transfers from recliner using FWW at Mod I. Pt ambulates in hallway using FWW at Mod I. Pt completes Seated Ex in recliner as well as uses restroom before end of tx. Pt rests in recliner with all needs met. Assessment Current Status: Good Progress Pt has improved with safety and independence of ambulation and transfers. No safety concerns at this time. Pt fatigues easy though. PT Short Term Goals Short Term Goals Time Frame: Aug 11, 2017 Gait (FIM): 4 (met) Gait Distance Comment: 200' Gait Level of Assist: 4 Gait Assistive Device: FWW PT Senior Care Goals Fashion Director Goals PT Fashion Director Goals Time Frame: Aug 25, 2017 Transfers (B,C,W/C) (FIM): 7 (mt) Sit to Lying (QC): 6 (met) Lying-Sitting on Side/Bed(QC): 6 (met) Sit to Stand (QC): 6 (met) Rollin Roll Left to Right (QC): 6 (met) Chair/Zxv-nw-Awbeb Xfer(QC): 6 (met) Car Transfer (QC): 4 Gait (FIM): 6 Distance: 250' Walk 10 feet (QC): 6 Walk 10ft-Uneven Surface(QC): 6 Walk 50ft with 2 Turns (QC): 6 Walk 150 ft (QC): 6 Gait Level of Assist: 6 Gait Assistive Device: FWW Stairs (FIM): 5 # of Steps: 12 1 Step (curb) (QC): 4 4 Steps (QC): 4 12 Steps (QC): 4 Stairs Level Of Assist: 5 Picking up an Object (QC): 4 PT Plan Problem List Problem List: Activity Tolerance Treatment/Plan Treatment Plan: Continue Plan of Care Treatment Plan: Bed Mobility, Education, Functional Activity Dave, Functional Strength, Group Therapy, Gait, Safety, Therapeutic Exercise, Transfers Treatment Duration: Aug 25, 2017 Frequency: At least 5 of 7 days/Wk (IRF) Estimated Hrs Per Day: 1.5 hours per day Patient and/or Family Agrees t: Yes Safety Risks/Education Patient Education: Gait Training, Transfer Techniques, Correct Positioning, Safety Issues Teaching Recipient: Patient Teaching Methods: Discussion Response to Teaching: Verbalize Understanding Time/GCodes Time In: 900 Time Out: 1000 Total Billed Treatment Time: 60 Total Billed Treatment visit, GT x2 (30m), EX (15m) & FA (15m) GRACIE GRACE DEBUBBLIZER Aug 12, 2017 12:14
--- NOTE | 2017-08-12 14:00 | Occupational Ther Daily Note ---
OT Current Status-Daily Note Subjective No pain reported. Appearance Pt. up in chair. Agrees to work with OT. Mental Status/Objective Patient Orientation: Person, Place Functional [place] Measure 0=Not Assessed/NA 4=Minimal Assistance 1=Total Assistance 5=Supervision or Setup 2=Maximal Assistance 6=Modified [place] 3=Moderate Assistance 7=Complete [place] ADL-Treatment Functional [place] Measure 0=Not Assessed/NA 4=Minimal Assistance 1=Total Assistance 5=Supervision or Setup 2=Maximal Assistance 6=Modified [place] 3=Moderate Assistance 7=Complete IndependenceIRFPAI Quality Coding Scale 6 Independent with activity with or without an assistive device 5 Patient requires set up or clean up by helper. Patient completes activity by themselves 4 Supervision or touching assist (CGA). [place] provide cues , steadying assist 3 The helper provides less than half the effort to complete the activity 2 The helper provides more than half the effort to complete the activity 1 Dependent. The helper does all the effort to complete an activity 7 Patient refused to complete or attempt activity 9 The patient did not perform the activity before the current illness or injury 88 Not attempted due to Medical conditions or safety concerns Grooming (FIM): 6 Oral Hygiene (QC): 6 Bathing (FIM): 6 (with shower chair) Shower/Bathe Self (QC): 6 Upper Body (FIM): 6 Upper Body Dressing (QC): 6 Lower Body Dressing (FIM): 6 Lower Body Dressing (QC): 6 On/Off Footwear (QC): 6 Toileting (FIM): 6 Toileting Hygiene (QC): 6 Transfers (B, C, W/C) (FIM): 6 (with walker) Toilet/Commode Transfer (FIM): 6 Toilet Transfer (QC): 6 Shower Transfer(FIM): 6 Other Treatment Pt. completed shower and ADL task with Mod I using walker, shower chair, and grab bars. Pt. demonstrates ability to bathe and dress self safely with equipment as needed. Ambulated to therapy gym after ADLs and completed 10 minutes on armbike to increase overall strength and endurance with daily tasks. Pt. tolerated this well. States that he is ready to leave, and plans to discharge to his daughters home. States that he has no concerns at this time. Ambulated back to room. Pt. up ad ulises in room and took self to bathroom upon returning to room. Education OT Patient Education: Correct positioning, Exercise program, Modified ADL techniques, Progress toward Goal/Update tx plan, Purpose of tx/functional activities, Reviewed precautions, Rehab process, Transfer techniques Teaching Recipient: Patient Teaching Methods: Demonstration, Discussion Response to Teaching: Verbalize Understanding, Return Demonstration OT Short Term Goals Short Term Goals Time Frame: Aug 11, 2017 Lower Body Dressing(FIM): 5 Toileting(FIM): 5 Toilet/Commode Transfer(FIM): 5 1=Demonstrate adherence to instructed precautions during ADL tasks. 2=Patient will verbalize/demonstrate understanding of assistive devices/ modifications for ADL. 3=Patient will improve strength/tolerance for activity to enable patient to perform ADL's. OT Half-Way Goals Half-Way Goals Time Frame: Aug 25, 2017 Eating (FIM): 6 (met 08/11/17) Eating (QC): 6 (6-MET) Groomin (met 08/11/17) Oral Hygiene (QC): 6 (6-MET) Bathing(FIM): 5 (exceeded 08/11/17) Shower/Bathe Self (QC): 5 (6-exceeded) Upper Body Dressing(FIM): 6 (met 08/11/17) Upper Body Dressing (QC): 6 (6-MET) Lower Body Dressing(FIM): 6 (met 08/11/17) Lower Body Dressing (QC): 6 (6-MET) On/Off Footwear (QC): 6 (6-MET) Toileting(FIM): 6 (met 08/11/17) Toileting Hygiene (QC): 6 (6-MET) Toilet/Commode Transfer(FIM): 6 (met 08/11/17) Toilet/Commode Transfer (QC): 6 (6-MET) Shower Transfer(FIM): 5 (exceeded 08/11/17) Comprehension(FIM): 4 (MET) Expression (FIM): 4 (MET) Social Interaction(FIM): 5 (MET) Problem Solving(FIM): 3 (MET) Memory(FIM): 3 (MET) Additional Goals: 2-Verbalize Understanding, 3-ImproveStrength/Dave 1=Demonstrate adherence to instructed precautions during ADL tasks. 2=Patient will verbalize/demonstrate understanding of assistive devices/ modifications for ADL. 3=Patient will improve strength/tolerance for activity to enable patient to perform ADL's. OT Education/Plan Discharge Recommendations Plan/Recommendations: Continue POC Therapy D/C Recommendations: Home w/ Family Support Target Placement [facility] to [facility] [place]. Treatment Plan/Plan of Care Treatment,Training & Education: Yes Patient would benefit from OT for education, treatment and training to promote independence in ADL's, mobility, safety and/or upper extremity function for ADL' s. Plan of Care: ADL Retraining, Functional Mobility, Group Exercise/Act as Ind, UE Funct Exercise/Act, UE Neuromus Re-Ed/Coord Treatment Duration: Aug 25, 2017 Frequency: At least 5 of 7 days/Wk (IRF) Estimated Hrs Per Day: 1.5 hours per day Agreement: Yes Rehab Potential: Good Time/GCodes Start Time: 11:30 Stop Time: 12:30 Total Time Billed (hr/min): 60 Billed Treatment Time 1, ADL x 45minutes, EX x 15minutes SEBASTIEN GILLIAM OT Aug 12, 2017 14:00
--- NOTE | 2017-08-12 14:11 | Physical Therapy Daily Note ---
PT Daily Note-Current Subjective Patient is up in room ad ulises. Agrees to PT. Pain Numeric Pain Scale: 0-No Pain Location: No Pain Reported Mental Status Patient Orientation: Normal For Age Transfers Functional [place] Measure 0=Not Assessed/NA 4=Minimal Assistance 1=Total Assistance 5=Supervision or Setup 2=Maximal Assistance 6=Modified [place] 3=Moderate Assistance 7=Complete IndependenceIRFPAI Quality Coding Scale 6 Independent with activity with or without an assistive device 5 Patient requires set up or clean up by helper. Patient completes activity by themselves 4 Supervision or touching assist (CGA). [place] provide cues , steadying assist 3 The helper provides less than half the effort to complete the activity 2 The helper provides more than half the effort to complete the activity 1 Dependent. The helper does all the effort to complete an activity 7 Patient refused to complete or attempt activity 9 The patient did not perform the activity before the current illness or injury 88 Not attempted due to Medical conditions or safety concerns Transfers (B, C, W/C) (FIM): 6 Scootin Rollin Roll Left to Right (QC): 5 Supine to/from Sit: 6 Sit to/from Stand: 6 Sit to Lying (QC): 5 Sit to Stand (QC): 5 Chair/Mjv-ba-Izevp Xfer(QC): 5 Bed to/from Chair: 6 Car Transfer (QC): 5 Weight Bearing Right Lower Extremity: Right Full Weight Bearing Left Lower Extremity: Left Full Weight Bearing Gait Training Does the Patient Walk?: Yes Gait (FIM): 6 Distance (FIM): 3=150 ft Distance: 400' x 2 Walk 10 feet (QC): 5 Walk 50 ft with 2 Turns(QC): 5 Walk 150 ft (QC): 5 Walking 10ft/uneven surface-QC: 5 Gait Level of Assist: 6 Gait Assistive Device: FWW trunk flexed posture with FWW; ambulated on all terrains inside and outside modified independent Stair Training Stair Training: Handrails/: 2 handrails Stairs (FIM): 5 #of Steps: 4 1 Step (curb) (QC): 5 4 Steps (QC): 5 Stairs: Pattern: Step to Level of Assist: 5 Balance Picking up an Object (QC): 5 Exercises Seated Therapy Exercises: Ankle pumps, Long arc quads, Hip flexion Seated Reps: 25 (x 2 sets) Assessment Patient much improved with gross motor skills and is highly motivated to return to home tomorrow. PT Short Term Goals Short Term Goals Time Frame: Aug 11, 2017 Gait (FIM): 4 (met) Gait Distance Comment: 200' Gait Level of Assist: 4 Gait Assistive Device: FWW PT Residential Goals Classification Control Clerk Goals PT Residential Goals Time Frame: Aug 25, 2017 Transfers (B,C,W/C) (FIM): 7 (mt) Sit to Lying (QC): 6 (met) Lying-Sitting on Side/Bed(QC): 6 (met) Sit to Stand (QC): 6 (met) Rollin Roll Left to Right (QC): 6 (met) Chair/Qri-pz-Xfnki Xfer(QC): 6 (met) Car Transfer (QC): 4 (met 08/12/17) Gait (FIM): 6 (met 08/12/17) Distance: 250' Walk 10 feet (QC): 6 Walk 10ft-Uneven Surface(QC): 6 Walk 50ft with 2 Turns (QC): 6 Walk 150 ft (QC): 6 Gait Level of Assist: 6 (met 08/12/17) Gait Assistive Device: FWW Stairs (FIM): 5 (met 08/12/17) # of Steps: 12 1 Step (curb) (QC): 4 (met 08/12/17) 4 Steps (QC): 4 (met 08/12/17) 12 Steps (QC): 4 Stairs Level Of Assist: 5 (met 08/12/17) Picking up an Object (QC): 4 (met 08/12/17) PT Plan Treatment/Plan Treatment Plan: Continue Plan of Care Treatment Plan: Bed Mobility, Education, Functional Activity Dave, Functional Strength, Group Therapy, Gait, Safety, Therapeutic Exercise, Transfers Treatment Duration: Aug 25, 2017 Frequency: At least 5 of 7 days/Wk (IRF) Estimated Hrs Per Day: 1.5 hours per day Patient and/or Family Agrees t: Yes Time/GCodes Time In: 1330 Time Out: 1400 Total Billed Treatment Time: 30 Total Billed Treatment 1 visit GT 20 min EX 10 min DANIELLE OCHOA PT Aug 12, 2017 14:11
--- NOTE | 2017-08-12 14:45 | Occupational Ther Daily Note ---
OT Current Status-Daily Note Subjective No pain reported. Appearance Pt. ambulated to therapy gym with Mod I using walker. Mental Status/Objective Patient Orientation: Person, Place Functional [place] Measure 0=Not Assessed/NA 4=Minimal Assistance 1=Total Assistance 5=Supervision or Setup 2=Maximal Assistance 6=Modified [place] 3=Moderate Assistance 7=Complete [place] ADL-Treatment Functional [place] Measure 0=Not Assessed/NA 4=Minimal Assistance 1=Total Assistance 5=Supervision or Setup 2=Maximal Assistance 6=Modified [place] 3=Moderate Assistance 7=Complete IndependenceIRFPAI Quality Coding Scale 6 Independent with activity with or without an assistive device 5 Patient requires set up or clean up by helper. Patient completes activity by themselves 4 Supervision or touching assist (CGA). [place] provide cues , steadying assist 3 The helper provides less than half the effort to complete the activity 2 The helper provides more than half the effort to complete the activity 1 Dependent. The helper does all the effort to complete an activity 7 Patient refused to complete or attempt activity 9 The patient did not perform the activity before the current illness or injury 88 Not attempted due to Medical conditions or safety concerns Transfers (B, C, W/C) (FIM): 6 Other Treatment Pt. agreeable to treatment. OT offers to practice anything that pt. feels he might have difficulty with, such as laundry, dishes, etc.... States that his daughter will do "all that." Pt. declines practicing any IADLs. Agrees to go to therapy gym with OT to work on UE exercises and strengthening. Donned 2 lb. wrist weights. Tolerated fine motor coordination task with therapy pegs, alternating arms for increased overall strength. Pt. states that he does not feel that he has any new weakness from his CVA, but that he does notice tremors. After strengthening task, ambulated back to room. Pt. took self to bathroom. All needs met. Education OT Patient Education: Correct positioning, Modified ADL techniques, Progress toward Goal/Update tx plan, Purpose of tx/functional activities, Reviewed precautions, Rehab process, Transfer techniques Teaching Recipient: Patient Teaching Methods: Demonstration Response to Teaching: Verbalize Understanding, Return Demonstration OT Short Term Goals Short Term Goals Time Frame: Aug 11, 2017 Lower Body Dressing(FIM): 5 Toileting(FIM): 5 Toilet/Commode Transfer(FIM): 5 1=Demonstrate adherence to instructed precautions during ADL tasks. 2=Patient will verbalize/demonstrate understanding of assistive devices/ modifications for ADL. 3=Patient will improve strength/tolerance for activity to enable patient to perform ADL's. OT Manager Student Services Goals [facility] Goals Time Frame: Aug 25, 2017 Eating (FIM): 6 (met 08/11/17) Eating (QC): 6 (6-MET) Groomin (met 08/11/17) Oral Hygiene (QC): 6 (6-MET) Bathing(FIM): 5 (exceeded 08/11/17) Shower/Bathe Self (QC): 5 (6-exceeded) Upper Body Dressing(FIM): 6 (met 08/11/17) Upper Body Dressing (QC): 6 (6-MET) Lower Body Dressing(FIM): 6 (met 08/11/17) Lower Body Dressing (QC): 6 (6-MET) On/Off Footwear (QC): 6 (6-MET) Toileting(FIM): 6 (met 08/11/17) Toileting Hygiene (QC): 6 (6-MET) Toilet/Commode Transfer(FIM): 6 (met 08/11/17) Toilet/Commode Transfer (QC): 6 (6-MET) Shower Transfer(FIM): 5 (exceeded 08/11/17) Comprehension(FIM): 4 (MET) Expression (FIM): 4 (MET) Social Interaction(FIM): 5 (MET) Problem Solving(FIM): 3 (MET) Memory(FIM): 3 (MET) Additional Goals: 2-Verbalize Understanding, 3-ImproveStrength/Dave 1=Demonstrate adherence to instructed precautions during ADL tasks. 2=Patient will verbalize/demonstrate understanding of assistive devices/ modifications for ADL. 3=Patient will improve strength/tolerance for activity to enable patient to perform ADL's. OT Education/Plan Discharge Recommendations Plan/Recommendations: Continue POC Therapy D/C Recommendations: Home w/ Family Support Treatment Plan/Plan of Care Treatment,Training & Education: Yes Patient would benefit from OT for education, treatment and training to promote independence in ADL's, mobility, safety and/or upper extremity function for ADL' s. Plan of Care: ADL Retraining, Functional Mobility, Group Exercise/Act as Ind, UE Funct Exercise/Act, UE Neuromus Re-Ed/Coord Treatment Duration: Aug 25, 2017 Frequency: At least 5 of 7 days/Wk (IRF) Estimated Hrs Per Day: 1.5 hours per day Agreement: Yes Rehab Potential: Good Time/GCodes Start Time: 14:00 Stop Time: 14:30 Total Time Billed (hr/min): 30 Billed Treatment Time 1, FA x 2 SEABSTIEN GILLIAM OT Aug 12, 2017 14:45
[2017-08-12] MEDS: ENOXAPARIN 40 MG/0.4 ML (LOVENOX) SYR SC SCH (18:15)
[2017-08-12] MEDS: warFARin 5 MG (COUMADIN) TAB PO SCH (18:15)
[2017-08-12 18:38] VITALS: BP 131/72
[2017-08-12] MEDS: DONEPEZIL 5 MG (ARICEPT) TAB PO SCH (20:26)
[2017-08-12] MEDS: ATORVASTATIN 40 MG (LIPITOR) TABLET PO SCH (20:26)
[2017-08-13 05:09] VITALS: BP 130/69
[2017-08-13 05:31] LABS: INR 1.8 (0.8-1.4); PROTHROMBIN TIME PATIENT 20.8 SEC (12.2-14.7)
[2017-08-13] MEDS: KCL 10 MEQ TAB (MICRO K) PO SCH (05:42)
[2017-08-13] MEDS: FERROUS SULF 325 MG (IRON) TAB PO SCH (05:42)
[2017-08-13] MEDS: PANTOPRAZOLE 40 MG (PROTONIX) TAB PO SCH (05:43)
--- NOTE | 2017-08-13 08:24 | Progress Note (SOAP) ---
Subjective Time Seen by Provider: 08:22 Subjective/Events-last exam CVA. Dementia.. Patient be discharged today. Patient to be sent home on Coumadin at 6 mg. Patient voices no complaints Objective Exam Vital Signs Date Time Temp Pulse Resp B/P (MAP) Pulse Ox O2 Delivery O2 Flow Rate FiO2 08/13/17 05:09 98.7 61 16 130/69 96 Room Air 08/12/17 21:12 Room Air 08/12/17 18:38 99.6 66 16 131/72 96 Room Air 08/12/17 10:00 98.5 08/12/17 08:30 99.1 08/12/17 08:23 Room Air Capillary Refill : Less Than 3 Seconds General Appearance: No Apparent Distress, WD/WN Results Lab Laboratory Tests 08/13/17 05:00: Prothrombin Time 20.8H, INR Comment 1.8H Assessment/Plan Assessment/Plan Assess & Plan/Chief Complaint CVA. Dementia. Coronary artery Disease. Hyperlipidemia. Hypertension. . 08/05/17. CVA. Dementia. Coronary artery. Disease . Hypertension. Hyperlipidemia. Patient appears happy today.. . 08/09/17. Patient seen yesterday and doing better. . 08/10/17 area Patient speaking better. CVA. DEMENTIA>. . 08/11/17. Patient can eat what he wants now.Patient happy. Patient ready to go home area CVA. Dementiaarea . 08/12/17. CVA. Dementia. Patient be discharged tomorrow. Patient excited. . 08/13/17. CVA. Dementia. Coronary artery disease. Hypertension. Hyperlipidemia. Patient to be discharged today . Clinical Quality Measures DVT/VTE Risk/Contraindication: Risk Factor Score Per Nursin RFS Level Per Nursing on Admit: 3=High MAURICE FULLER DO Aug 13, 2017 08:24
--- NOTE | 2017-08-13 08:35 | Therapy Team Discharge Summary ---
Therapy Discharge Summary Discharge Recommendations Date of Discharge Therapy D/C Recommendations: Home w/ Family Support Physical Therapy Patient came to rehab following a CVA. Upon admission, patient performed bed mobility and transfers with SBA, ambulated 100' with a rolling walker with CGA ( including 50' with at least 2 turns of 90 degrees but not ambulating over an uneven surface), and went up and down 4 steps using 2 handrails with CGA. Patient has been performing bed mobility and transfer training, balance and endurance training, functional strengthening, stair training, gait training, and education. He has made good progress and has met all of his assistant baseball coach goals except for stairs. Now, patient performs bed mobility and transfers with mod I, ambulates 350' with a rolling walker with mod I (including 50' with at least 2 turns of 90 degrees and 10' over an uneven surface), and he can go up and down 4 steps using 2 handrails with SBA. Patient is discharging from this facility today and will be discharged from PT at this time. Occupational Therapy Decreased Activ Tolerance, Decreased Safety Aware, Decreased UE Strength, Dependent Transfers, Impaired I ADL's, Impaired Self-Care Skills PT Licensed Audiologist Goals Nursing Home Goals PT Licensed Audiologist Goals Time Frame: Aug 25, 2017 Transfers (B,C,W/C) (FIM): 7 (mt) Roll Left to Right (QC): 6 (met) Sit to Lying (QC): 6 (met) Lying-Sitting on Side/Bed(QC): 6 (met) Sit to Stand (QC): 6 (met) Chair/Ubl-zz-Sdfxi Xfer(QC): 6 (met) Car Transfer (QC): 4 (met 08/12/17) Gait (FIM): 6 (met 08/12/17) Distance: 250' Walk 10 feet (QC): 6 Walk 10ft-Uneven Surface(QC): 6 Walk 50ft with 2 Turns (QC): 6 Walk 150 ft (QC): 6 Gait Level of Assist: 6 (met 08/12/17) Gait Assistive Device: FWW Stairs (FIM): 5 (met 08/12/17) # of Steps: 12 1 Step (curb) (QC): 4 (met 08/12/17) 4 Steps (QC): 4 (met 08/12/17) 12 Steps (QC): 4 Stairs Level Of Assist: 5 (met 08/12/17) Picking up an Object (QC): 4 (met 08/12/17) OT Licensed Audiologist Goals Licensed Audiologist Goals Time Frame: Aug 25, 2017 Eating (FIM): 6 (met 08/11/17) Eating (QC): 6 (6-MET) Oral Hygiene (QC): 6 (6-MET) Grooming(FIM): 6 (met 08/11/17) Bathing(FIM): 5 (exceeded 08/11/17) Shower/Bathe Self (QC): 5 (6-exceeded) Upper Body Dressing(FIM): 6 (met 08/11/17) Upper Body Dressing (QC): 6 (6-MET) Lower Body Dressing(FIM): 6 (met 08/11/17) Lower Body Dressing (QC): 6 (6-MET) On/Off Footwear (QC): 6 (6-MET) Toileting(FIM): 6 (met 08/11/17) Toileting Hygiene (QC): 6 (6-MET) Toilet/Commode Transfer(FIM): 6 (met 08/11/17) Toilet/Commode Transfer (QC): 6 (6-MET) Shower Transfer(FIM): 5 (exceeded 08/11/17) Comprehension(FIM): 4 (MET) Expression (FIM): 4 (MET) Social Interaction(FIM): 5 (MET) Problem Solving(FIM): 3 (MET) Memory(FIM): 3 (MET) Additional Goals: 2-Verbalize Understanding, 3-ImproveStrength/Dave 1=Demonstrate adherence to instructed precautions during ADL tasks. 2=Patient will verbalize/demonstrate understanding of assistive devices/ modifications for ADL. 3=Patient will improve strength/tolerance for activity to enable patient to perform ADL's. Speech Nursing Home Goals Nursing Home Goals 1. The patient will improve cognitive linguistic skills for increased function and safety with ADL's. Time Frame: Two Weeks Comprehension: 4 (MET) Expression: 4 (MET) Social Interaction: 5 (MET) Problem Solvin (MET) Memory: 3 (MET) ANA FUNEZ PT Aug 13, 2017 08:35
[2017-08-13] MEDS: FUROSEMIDE 40 MG (LASIX) TAB PO SCH (09:06)
[2017-08-13] MEDS: amLODIPine 5 MG (NORVASC) TAB PO SCH (09:06)
[2017-08-13] MEDS ORDERED: WARF5TAB PO (09:16)
[2017-08-13] MEDS ORDERED: DONE5TAB8 PO (09:16)
[2017-08-13] MEDS ORDERED: PRAV20TA3 PO (10:58)
[2017-08-13 11:20] VITALS: BP 128/77
--- NOTE | 2017-08-13 11:57 | Therapy Team Discharge Summary ---
Therapy Discharge Summary Discharge Recommendations Date of Discharge Therapy D/C Recommendations: Home w/ Family Support Occupational Therapy Pt admitted to ARU following acute hospitalization for CVA. On admission pt required minimal assistance for transfers, bathing, and LE dressing and SBA for UE ADLs. Skilled OT intervention focused on ADL training, transfers, strengthening, and safety education. Pt made good progress with therapy and by discharge is completing ADLs and transfers with modified independence. Pt met all OT LTG. Pt discharging this date. D/C ARU OT at this time. Decreased Activ Tolerance, Decreased Safety Aware, Decreased UE Strength, Dependent Transfers, Impaired I ADL's, Impaired Self-Care Skills PT Detention Goals Detention Goals PT Detention Goals Time Frame: Aug 25, 2017 Transfers (B,C,W/C) (FIM): 7 (mt) Roll Left to Right (QC): 6 (met) Sit to Lying (QC): 6 (met) Lying-Sitting on Side/Bed(QC): 6 (met) Sit to Stand (QC): 6 (met) Chair/Dci-dz-Thoni Xfer(QC): 6 (met) Car Transfer (QC): 4 (met 08/12/17) Gait (FIM): 6 (met 08/12/17) Distance: 250' Walk 10 feet (QC): 6 Walk 10ft-Uneven Surface(QC): 6 Walk 50ft with 2 Turns (QC): 6 Walk 150 ft (QC): 6 Gait Level of Assist: 6 (met 08/12/17) Gait Assistive Device: FWW Stairs (FIM): 5 (met 08/12/17) # of Steps: 12 1 Step (curb) (QC): 4 (met 08/12/17) 4 Steps (QC): 4 (met 08/12/17) 12 Steps (QC): 4 Stairs Level Of Assist: 5 (met 08/12/17) Picking up an Object (QC): 4 (met 08/12/17) OT Director Of Public Safety Goals Detention Goals Time Frame: Aug 25, 2017 Eating (FIM): 6 (met 08/11/17) Eating (QC): 6 (6-MET) Oral Hygiene (QC): 6 (6-MET) Grooming(FIM): 6 (met 08/11/17) Bathing(FIM): 5 (exceeded 08/11/17) Shower/Bathe Self (QC): 5 (6-exceeded) Upper Body Dressing(FIM): 6 (met 08/11/17) Upper Body Dressing (QC): 6 (6-MET) Lower Body Dressing(FIM): 6 (met 08/11/17) Lower Body Dressing (QC): 6 (6-MET) On/Off Footwear (QC): 6 (6-MET) Toileting(FIM): 6 (met 08/11/17) Toileting Hygiene (QC): 6 (6-MET) Toilet/Commode Transfer(FIM): 6 (met 08/11/17) Toilet/Commode Transfer (QC): 6 (6-MET) Shower Transfer(FIM): 5 (exceeded 08/11/17) Comprehension(FIM): 4 (MET) Expression (FIM): 4 (MET) Social Interaction(FIM): 5 (MET) Problem Solving(FIM): 3 (MET) Memory(FIM): 3 (MET) Additional Goals: 2-Verbalize Understanding, 3-ImproveStrength/Dave 1=Demonstrate adherence to instructed precautions during ADL tasks. 2=Patient will verbalize/demonstrate understanding of assistive devices/ modifications for ADL. 3=Patient will improve strength/tolerance for activity to enable patient to perform ADL's. Speech Director Of Public Safety Goals Detention Goals 1. The patient will improve cognitive linguistic skills for increased function and safety with ADL's. Time Frame: Two Weeks Comprehension: 4 (MET) Expression: 4 (MET) Social Interaction: 5 (MET) Problem Solvin (MET) Memory: 3 (MET) HARDY DYKES OT Aug 13, 2017 11:57
[2017-08-13] MEDS ORDERED: warFARin 3 MG (COUMADIN) TAB PO SCH (18:00)
== END 2017-08-13 11:20 | disposition home health service (06) | DRG 57 ==
PROVIDERS: ADMIT Physical Medicine & Rehabilitation; ATTEND Physical Medicine & Rehabilitation
DX: I69.398 Other sequelae of cerebral infarction (principal); R41.4 Neurologic neglect syndrome; I69.320 Aphasia following cerebral infarction; I69.391 Dysphagia following cerebral infarction; R13.10 Dysphagia, unspecified; R26.81 Unsteadiness on feet; E66.01 Morbid (severe) obesity due to excess calories; Z68.41 Body mass index [BMI] 40.0-44.9, adult; G47.33 Obstructive sleep apnea (adult) (pediatric); I48.91 Unspecified atrial fibrillation; M19.90 Unspecified osteoarthritis, unspecified site; F03.90 Unspecified dementia, unspecified severity, without behavioral disturbance, psychotic disturbance, mood disturbance, and anxiety; I25.10 Atherosclerotic heart disease of native coronary artery without angina pectoris; I10 Essential (primary) hypertension; K25.9 Gastric ulcer, unspecified as acute or chronic, without hemorrhage or perforation; E78.5 Hyperlipidemia, unspecified; D64.9 Anemia, unspecified; Z95.0 Presence of cardiac pacemaker; Z87.891 Personal history of nicotine dependence
CPT/HCPCS: 36415; 80053; 81000; 85025; 85610; 93005